=== PATIENT | female | born 1960 | race Caucasian/White ===

== ENCOUNTER → 2018-06-29 09:58 | Outpatient (CLI) | payer OTHER, SELFPAY ==
[2018-06-29 10:31] LABS: Color, Urine Yellow (Yellow); Glucose, Dipstick Normal (Normal); Ketone-Dipstick 15 mg/dl (Negative); Leukocyte Esterase-Dipstick 25 /ul (Negative); Nitrite-Dipstick Negative (Negative); Occult Blood-Urine 50 /ul (Negative); Protein-Dipstick 30 mg/dl (Negative); Urine Bilirubin Dipstick 1 mg/dL (Negative); Urine Clarity Sl. Cloudy (Clear); Urine Urobilinogen 4 mg/dl (Normal)
[2018-06-29 10:38] LABS: Absolute Lymphocyte Count 1.82 X10^3/ul (0.83-4.51); Absolute Neutrophil Count 7.1 X10^3/uL (2.0-7.7); Basophil# 0.02 X10^3/uL; Basophil% 0.2 % (0-1); Eosinophil# 0.14 X10^3/uL; Eosinophils% 1.5 % (0-5); Hematocrit 45.1 % (37-47); Hemoglobin 14.3 g/dl (12.0-15.0); Lymphocyte # 1.82 X10^3/ul (4.0); Lymphocyte % 19.4 % (19-41); Mean Corp Hgb Conc 31.7 g/gl (32-36); Mean Corpuscular Hgb 30.6 pg (27.0-32.0); Mean Corpuscular Volume 96.4 fL (81-99); Mean Platelet Vol. 10.9 fl (6.2-12.0); Monocyte# 0.34 X10^3/uL; Monocyte% 3.6 % (0-10); Neutrophil # 7.06 X10^3/uL (2.7-7.7); Neutrophil % 75.2 % (47-70); POSITIVE COUNT NO; POSITIVE DIFFERENTIAL NO; POSITIVE MORPHOLOGY NO; Platelet Count 281 K/mm3 (150-450); RBC Distribution Width CV 14.5 % (11.6-14.6); RBC Distribution Width SD 51.1 fl (35.1-43.9); Red Blood Count 4.68 M/mm3 (4.2-5.4); White Blood Count 9.4 K/mm3 (4.4-11.0)
[2018-06-29 11:08] LABS: ALB/GLOB Ratio 0.9 RATIO (0.9-2.4); AST(SGOT) 19 U/L (15-37); Alanine Aminotransfer ALT/SGPT 30 U/L (13-56); Albumin, Serum 3.7 g/dL (3.2-5.0); Alkaline Phosphatase 93 U/L (45-117); Anion Gap 8 (5-15); BUN 22 mg/dL (7-18); BUN/Creat Ratio 24.7 RATIO (10-20); Calcium,Total 8.8 mg/dL (8.5-10.1); Chloride 108 mmol/L (98-107); Cholesterol 182 mg/dL (200); Creatinine, Serum 0.89 mg/dL (0.55-1.02); EST Glomerular Filtration Rate 69 mL/min (>60); Est Glom Filt Rate - Afr Amer 83 mL/min (>60); Globulin 3.9 g/dL (2.2-4.2); Glucose 98 mg/dL (74-106); High Density Lipoprotein 52 mg/dL; Potassium 4.2 mmol/L (3.5-5.1); Protein, Total 7.6 g/dL (6.4-8.2); Sodium Level 140 mmol/L (136-145); Triglycerides 107 mg/dL; Very Low Density Lipoprotein 21 mg/dL (5-40)
== END ==
PROVIDERS: Family Provider Family Medicine; PCP Family Medicine; Referring Provider Family Medicine; Visit Provider Family Medicine
DX: Z00.00 Encounter for general adult medical examination without abnormal findings (principal); Z12.31 Encounter for screening mammogram for malignant neoplasm of breast; I10 Essential (primary) hypertension
CPT/HCPCS: 36415; 80053; 80061; 81002; 85025

== ENCOUNTER → 2018-10-01 09:42 | Outpatient (CLI) | payer OTHER, SELFPAY ==
--- NOTE | 2018-10-02 | COLBX_PTH ---
PATIENT: ANGELA MUÑOZ LOC: [facility] U#:[id number] AGE/SX: 65/F ROOM: RE10/01/[address]: Dr. Myles Huff MD : 1960 BED: DIS: SPEC #: [id number] RECD: 10/02/18 13:03 STATUS: SEAN PASQUALE #: [id number] REY: 10/02/18 00:[address]: Myles Huff DEPT: SURGICAL PATHOLOGY RECD BY: Zelalem Jeff ENTERED: 10/02/18 13:03 SP TYPE: COLON BX OTHR DR: Dr. Jabier Gurrola MD [facility] Tissues: Right colon Procedures: Surgery Specimen Level IV HEADER OPERATION: Colonoscopy with biopsies PRE-OP DIAGNOSIS: Screening TISSUE SUBMITTED: Right colon polyp, rule out lipoma/GIST MICROSCOPIC DIAGNOSIS Right colon polyp, biopsy: Fragments of colonic mucosa with focal hyperplastic change. Mild melanosis coli. AM:alexander 10/05/18 MICROSCOPIC DESCRIPTION Slides are reviewed. GROSS DESCRIPTION Received in fixative is one container labeled with the patient's name and designated right colon. The specimen consists of multiple irregular fragments of light ritchie soft tissue that in aggregate measure 1 x 0.7 x 0.1 cm. The specimen is totally submitted in one cassette. / AM:rg 10/02/18 TC:5 CPT: 02121
== END ==
PROVIDERS: Family Provider Family Medicine; PCP Family Medicine; Visit Provider Internal Medicine Gastroenterology
DX: Z12.11 Encounter for screening for malignant neoplasm of colon (principal)
CPT/HCPCS: 88305

== ENCOUNTER 2018-11-19 07:48 | Outpatient (RCR) | payer OTHER, SELFPAY ==
[2018-11-19 08:16] VITALS: BP 165/98; PULSE 80; RESP 18; TEMP 36.8; BMI 39.1
--- NOTE | 2018-11-19 09:30 | PCM.WC.HP ---
(1) Skin ulcer of abdominal wall with fat layer exposed Status: Chronic Code(s): L98.492 - Non-pressure chronic ulcer of skin of other sites with fat layer exposed (2) Skin ulcer of groin Status: Chronic Qualifiers: Non-pressure ulcer stage: limited to breakdown of skin Qualified Code(s): L98.491 - Non-pressure chronic ulcer of skin of other sites limited to breakdown of skin Code(s): L98.499 - Non-pressure chronic ulcer of skin of other sites with unspecified severity Comment: Recurrent. (3) Hidradenitis suppurativa Status: Chronic Code(s): L73.2 - Hidradenitis suppurativa History of Present Illness Date of Service: 11/19/18 Chief Complaint: Chronic non healing abdominal ulcer. History of Wound: Ms. Cook is a 58yo with PMH as stated above who presented to the wound center due to non helaing abdominal ulcers and recurrent groin ulceration / drainage due to hydradenitis suppurativa. Regarding her abdominal wound, it is said to have been present since 2017. she denies any known precipitating factor and states that she just noted bloody drainage followed by the opening. She has been on bactrim as well as some wound care management without any significant improvement. Groin ulcer is chronic ( Years ) and typically resolves with neosporin and guaze. occassionally opens up and drains purulent substances. Surgery has been recommended however, she is not open to this. She feels well otherwise and denies chills,fever, nausea or vomitting. Past Medical History Past Medical History: Chronic Problems Skin ulcer of abdominal wall with fat layer exposed (Chronic) Skin ulcer of groin (Chronic) Recurrent. Hidradenitis suppurativa (Chronic) Allergies/Adverse Reactions: Allergies Penicillins [PCN] Allergy (Verified 01/27/16 22:45) Unknown Home Medications: Ambulatory Orders Medication Instructions Recorded Losartan Potassium [Cozaar] 100 mg PO DAILY 01/27/16 Meloxicam [Mobic] 15 mg PO DAILY 01/27/16 Oxycodone HCl/Acetaminophen 1 each PO Q6H PRN 01/27/16 [Oxycodon-Acetaminophen 7.5-325] Smz/Tmp Ds [Bactrim Ds] 800 mg PO DAILY 01/27/16 buPROPion tablets [Wellbutrin] 100 mg PO DAILY 01/27/16 Fluoxetine 40 mg PO DAILY 11/19/18 Smoking Status: Current every day smoker Review of Systems Constitutional: Denies: Anorexia, Chills, Fever Eyes: Denies: Blurred vision, Pain HEENT: Denies: Difficulty Swallowing Cardiovascular: Denies: Chest Pain, Chest Tightness Respiratory: Denies: Cough, Hemoptysis Gastrointestinal: Denies: Abdominal Pain, Hematemesis, Vomiting Genitourinary: Denies: Hematuria Skin: Reports: Jaundice - Physical Exam Vital Signs Temp Pulse Resp BP 98.2 F 80 18 165/98 H 11/19/18 08:16 11/19/18 08:16 11/19/18 08:16 11/19/18 08:16 General: Alert, Oriented x3, Cooperative, No apparent distress HEENT: Atraumatic, Normocephalic Oral: Moist Mucosa Neck: Supple Lungs: Clear to auscultation, Normal air movement Cardiovascular: Regular rate, Regular Rhythm, Normal S1, Normal S2 Abdomen: Soft, Non Tender, Obese Extremities: No cyanosis, No edema Skin: Ulcer/ Wound Wound Measurements and Assessment WC - Nurse 1 - General Ulcer Measurement Start: 11/19/18 08:07 Freq: Status: Active Protocol: Activity Type Activity Date Activity User E-Sign Co-Sign Detail Recorded Client Recorded Date Recorded By Document 11/19/18 08:16 AN [id number] 11/19/18 08:40 AN 11/19/18 08:16 Wound Center Nurse 1 [Ulcer Assessment] #2 Rt Abdomen -Current Size (cm) - Length 1.1 -Current Size (cm) - Width 1.0 -Current Size (cm) - Depth 0.1 -Total Square Cm 1.10 -Date of Last Picture (Recall this 11/19/18 field) -Photo Taken Yes -Epithelialization None Present -Tunneling No -Undermining/Tunneling No -Circular Undermining No -Classification - Thickness Full Thickness without Exposed Support Structure -Exudate Amt Medium -Exudate Type Serosanguineous -Wound Margin Distinct, Outline Attached -Granulation Amt Large (67-100%) -Granulation Quality Red -Slough/Fibrin Yes -Necrosis Amt Small (1-33%) -Necrotic Tissue Type Adherent Slough -Structure Exposed None/Limited to Skin Breakdown -Texture (Luz Elena-wound Skin Appearance) Assessed Localized Edema -Moisture (Luz Elena-wound Skin Appearance Assessed ) -Color (Luz Elena-wound Skin Appearance) Assessed Erythema -Temperature (Luz Elena-wound Skin No Abnormality Appearance) (Pt Warm) -Tenderness on Palpation (Luz Elena-wound Yes Skin Appearance) -Ulcer Cleansing Rinsed/ Irrigated with Saline -Foul Odor after Cleansing No -Anesthetic Used 4% Lidocaine Solution 5% Lidocaine Gel #1 lower abdomen midline -Current Size (cm) - Length 0.3 -Current Size (cm) - Width 0.3 -Current Size (cm) - Depth 0.1 -Total Square Cm 0.09 -Date of Last Picture (Recall this 11/19/18 field) -Photo Taken Yes -Epithelialization None Present -Tunneling No -Undermining/Tunneling No -Circular Undermining No -Classification - Thickness Full Thickness without Exposed Support Structure -Exudate Amt Medium -Exudate Type Serosanguineous -Wound Margin Distinct, Outline Attached -Granulation Amt Large (67-100%) -Granulation Quality Red -Slough/Fibrin Yes -Necrosis Amt Small (1-33%) -Necrotic Tissue Type Adherent Slough -Structure Exposed None/Limited to Skin Breakdown -Texture (Luz Elena-wound Skin Appearance) Assessed Localized Edema -Moisture (Luz Elena-wound Skin Appearance Assessed ) -Color (Luz Elena-wound Skin Appearance) Assessed Erythema -Temperature (Luz Elena-wound Skin No Abnormality Appearance) (Pt Warm) -Tenderness on Palpation (Luz Elena-wound Yes Skin Appearance) -Ulcer Cleansing Rinsed/ Irrigated with Saline -Foul Odor after Cleansing No -Anesthetic Used 4% Lidocaine Solution 5% Lidocaine Gel WC - Nurse 2 - General Ulcer CM Notes Start: 11/19/18 08:07 Freq: Status: Active Protocol: Activity Type Activity Date Activity User E-Sign Co-Sign Detail Recorded Client Recorded Date Recorded By Document 11/19/18 09:03 MW [id number] 11/19/18 09:06 MW 11/19/18 09:03 Wound Center Nurse 2 [Procedure/Treatment] #2 Rt Abdomen -Time 09:03 -Correct Patient Yes -Correct Side, Site, Position Yes -Correct Procedure Yes -Procedure Performed Yes -Type of Procedure Debridement -Clinical Debridement Subcutaneous -Post Debridement Size (cm) - Length 1.2 -Post Debridement Size (cm) - Width 1.2 -Post Debridement Size (cm) - Depth 0.1 -Total Square Cm 1.44 -Wound/Ulcer Outcome Not Healed -Ulcer Cleansing Rinsed/ Irrigated with Saline -Foul Odor after Cleansing No -Bioengineered Tissue No -Bleeding Controlled with Pressure -Offloading No -Treatment Response Procedure Tolerated Well #1 lower abdomen midline -Time 09:05 -Correct Patient Yes -Correct Side, Site, Position Yes -Correct Procedure Yes -Procedure Performed No -Post Debridement Size (cm) - Length 0.3 -Post Debridement Size (cm) - Width 0.3 -Post Debridement Size (cm) - Depth 0.1 -Total Square Cm 0.09 -Wound/Ulcer Outcome Not Healed -Ulcer Cleansing Rinsed/ Irrigated with Saline -Foul Odor after Cleansing No -Bioengineered Tissue No -Bleeding Controlled with NA -Offloading No -Treatment Response Procedure Tolerated Well [See Physician Procedure note for Specifics] Pain Scale: 0-10 Numeric [Pain] -Is Patient Pain Free? Yes Musculoskeletal: No Muscle Wasting Neurological: Cranial nerves II-XII grossly intact Psych/Mental Status: Normal Affect Debridement Note Post-Debridement Measurements/Treatment WC - Nurse 2 - General Ulcer CM Notes Start: 11/19/18 08:07 Freq: Status: Active Protocol: Activity Type Activity Date Activity User E-Sign Co-Sign Detail Recorded Client Recorded Date Recorded By Document 11/19/18 09:03 MW [id number] 11/19/18 09:06 MW 11/19/18 09:03 Wound Center Nurse 2 #2 Rt Abdomen -Time 09:03 -Correct Patient Yes -Correct Side, Site, Position Yes -Correct Procedure Yes -Procedure Performed Yes -Type of Procedure Debridement -Clinical Debridement Subcutaneous -Post Debridement Size (cm) - Length 1.2 -Post Debridement Size (cm) - Width 1.2 -Post Debridement Size (cm) - Depth 0.1 -Total Square Cm 1.44 -Wound/Ulcer Outcome Not Healed -Ulcer Cleansing Rinsed/ Irrigated with Saline -Foul Odor after Cleansing No -Bioengineered Tissue No -Bleeding Controlled with Pressure -Offloading No -Treatment Response Procedure Tolerated Well #1 lower abdomen midline -Time 09:05 -Correct Patient Yes -Correct Side, Site, Position Yes -Correct Procedure Yes -Procedure Performed No -Post Debridement Size (cm) - Length 0.3 -Post Debridement Size (cm) - Width 0.3 -Post Debridement Size (cm) - Depth 0.1 -Total Square Cm 0.09 -Wound/Ulcer Outcome Not Healed -Ulcer Cleansing Rinsed/ Irrigated with Saline -Foul Odor after Cleansing No -Bioengineered Tissue No -Bleeding Controlled with NA -Offloading No -Treatment Response Procedure Tolerated Well Pain Scale: 0-10 Numeric Is Patient Pain Free? Yes Wound debrided: Abdominal Wound Grade/Stage: Stage II Type of Debridement: Excisional debridement Anesthesia Used: 4% Lidocaine Solution Depth: Down to and including healthy tissue, in the subcutaneous layer Percentage of wound debrided: 100 Instrument Used: 3mm curette Tissue Removed: Slough and devitalized tissue Severity: Fat Layer Exposed Amount of bleeding with debridement: Mild Bleeding Controlled with: Pressure Patient tolerated procedure well Assessment/Plan Assessment: Chronic, non healing abdominal wound. History of Hydradenitis Suppurativa. Plan: Ms. Cook is here due to management of her chronic non healing ulcer ongoing since july. Had been managed previously by her PCP without any significant improvement. Groin ulcer currently not open. This is secondary to hydradenitis and typically reopens and drains frequently. Debridement done as documented above, procedure was well tolerated. Amara daily with adaptic overtop. Increased protein intake recommended. Follow up in 1 week. All her questions were answered and she was advised to call with any further questions or concerns.
== END 2018-11-19 23:59 ==
LOC: WC 07:48
PROVIDERS: Family Provider Family Medicine; PCP Family Medicine; Visit Provider Internal Medicine
DX: L73.2 Hidradenitis suppurativa (principal); L98.492 Non-pressure chronic ulcer of skin of other sites with fat layer exposed; F17.200 Nicotine dependence, unspecified, uncomplicated
CPT/HCPCS: 11042; 99213; G0463

== ENCOUNTER 2018-12-17 08:00 | Outpatient (RCR) | payer OTHER, SELFPAY ==
[2018-11-20 01:52] VITALS: BP 165/98; PULSE 80; RESP 18; TEMP 36.8
[2018-11-26 09:12] VITALS: BP 143/99; PULSE 77; RESP 18; TEMP 36.6; BMI 39.1
--- NOTE | 2018-11-26 13:26 | PCM.WC.PN ---
(1) Skin ulcer of abdominal wall with fat layer exposed Status: Chronic Current Visit: Yes Code(s): L98.492 - Non-pressure chronic ulcer of skin of other sites with fat layer exposed (2) Hidradenitis suppurativa Status: Chronic Current Visit: No Code(s): L73.2 - Hidradenitis suppurativa Type of Wound Chief Complaint: Chronic non healing abdominal ulcer. History of Wound: Ms. Cook is a 58yo with PMH as stated above who presented to the wound center due to non helaing abdominal ulcers and recurrent groin ulceration / drainage due to hydradenitis suppurativa. Regarding her abdominal wound, it is said to have been present since 2017. she denies any known precipitating factor and states that she just noted bloody drainage followed by the opening. She has been on bactrim as well as some wound care management without any significant improvement. Groin ulcer is chronic ( Years ) and typically resolves with neosporin and guaze. occassionally opens up and drains purulent substances. Surgery has been recommended however, she is not open to this. She feels well otherwise and denies chills,fever, nausea or vomitting. Progress of Wound: Appears to have improved however patient has significant tenderness. - Physical Exam Vital Signs Temp Pulse Resp BP 97.8 F 77 18 143/99 H 11/26/18 09:12 11/26/18 09:12 11/26/18 09:12 11/26/18 09:12 General: Alert, Oriented x3, Cooperative, No apparent distress HEENT: Atraumatic, Normocephalic Oral: Moist Mucosa Neck: Supple Lungs: Normal air movement Abdomen: Soft, Tender Extremities: No cyanosis Skin: Ulcer/ Wound Wound Measurements and Assessment WC - Nurse 1 - General Ulcer Measurement Start: 11/26/18 09:12 Freq: Status: Active Protocol: Activity Type Activity Date Activity User E-Sign Co-Sign Detail Recorded Client Recorded Date Recorded By Document 11/26/18 09:12 AN [id number] 11/26/18 09:26 AN 11/26/18 09:12 Wound Center Nurse 1 [Ulcer Assessment] #2 Rt Abdomen -Current Size (cm) - Length 0.7 -Current Size (cm) - Width 0.7 -Current Size (cm) - Depth 0.1 -Total Square Cm 0.49 -Undermining/Tunneling Yes -Undermining/Tunneling Starts (O' 12 clock) -Undermining/Tunneling Ends (O'clock) 1 -Maximum Distance (cm) 0.3 -Classification - Thickness Full Thickness without Exposed Support Structure -Exudate Amt Medium -Exudate Type Serosanguineous -Wound Margin Distinct, Outline Attached -Granulation Amt Large (67-100%) -Granulation Quality Red -Slough/Fibrin Yes -Necrosis Amt Small (1-33%) -Necrotic Tissue Type Adherent Slough -Structure Exposed None/Limited to Skin Breakdown -Texture (Mich-wound Skin Appearance) Assessed -Moisture (Mich-wound Skin Appearance Assessed ) -Color (Mich-wound Skin Appearance) Assessed Erythema -Temperature (Mich-wound Skin No Abnormality Appearance) (Pt Warm) -Tenderness on Palpation (Mich-wound Yes Skin Appearance) -Foul Odor after Cleansing No -Anesthetic Used 5% Lidocaine Gel #1 lower abdomen midline -Current Size (cm) - Length 0.3 -Current Size (cm) - Width 0.2 -Current Size (cm) - Depth 0.1 -Total Square Cm 0.06 -Classification - Thickness Full Thickness without Exposed Support Structure -Exudate Amt Small -Exudate Type Serous -Necrosis Amt None Present (0 %) -Anesthetic Used 5% Lidocaine Gel WC - Nurse 2 - General Ulcer CM Notes Start: 11/26/18 09:12 Freq: Status: Active Protocol: Activity Type Activity Date Activity User E-Sign Co-Sign Detail Recorded Client Recorded Date Recorded By Document 11/26/18 09:32 MW [id number] 11/26/18 09:39 MW 11/26/18 09:32 Wound Center Nurse 2 [Procedure/Treatment] #2 Rt Abdomen -Time 09:33 -Correct Patient Yes -Correct Side, Site, Position Yes -Correct Procedure Yes -Procedure Performed Yes -Type of Procedure Debridement -Clinical Debridement Subcutaneous -Post Debridement Size (cm) - Length 1.0 -Post Debridement Size (cm) - Width 0.8 -Post Debridement Size (cm) - Depth 0.1 -Total Square Cm 0.80 -Wound/Ulcer Outcome Not Healed -Ulcer Cleansing Rinsed/ Irrigated with Saline -Foul Odor after Cleansing No -Bioengineered Tissue No -Bleeding Controlled with Pressure -Offloading No -Treatment Response Procedure Tolerated Well #1 lower abdomen midline -Time 09:33 -Correct Patient Yes -Correct Side, Site, Position Yes -Correct Procedure Yes -Procedure Performed No -Post Debridement Size (cm) - Length 0.3 -Post Debridement Size (cm) - Width 0.2 -Post Debridement Size (cm) - Depth 0.1 -Total Square Cm 0.06 -Wound/Ulcer Outcome Healed- Epithelialized -Ulcer Cleansing Rinsed/ Irrigated with Saline -Foul Odor after Cleansing No -Bioengineered Tissue No -Bleeding Controlled with Pressure -Offloading No -Treatment Response Procedure Tolerated Well [See Physician Procedure note for Specifics] Pain Scale: 0-10 Numeric [Pain] -Is Patient Pain Free? Yes Musculoskeletal: No Muscle Wasting Neurological: Cranial nerves II-XII grossly intact Psych/Mental Status: Normal Affect Debridement Note Post-Debridement Measurements/Treatment WC - Nurse 2 - General Ulcer CM Notes Start: 11/26/18 09:12 Freq: Status: Active Protocol: Activity Type Activity Date Activity User E-Sign Co-Sign Detail Recorded Client Recorded Date Recorded By Document 11/26/18 09:32 MW [id number] 11/26/18 09:39 MW 11/26/18 09:32 Wound Center Nurse 2 #2 Rt Abdomen -Time 09:33 -Correct Patient Yes -Correct Side, Site, Position Yes -Correct Procedure Yes -Procedure Performed Yes -Type of Procedure Debridement -Clinical Debridement Subcutaneous -Post Debridement Size (cm) - Length 1.0 -Post Debridement Size (cm) - Width 0.8 -Post Debridement Size (cm) - Depth 0.1 -Total Square Cm 0.80 -Wound/Ulcer Outcome Not Healed -Ulcer Cleansing Rinsed/ Irrigated with Saline -Foul Odor after Cleansing No -Bioengineered Tissue No -Bleeding Controlled with Pressure -Offloading No -Treatment Response Procedure Tolerated Well #1 lower abdomen midline -Time 09:33 -Correct Patient Yes -Correct Side, Site, Position Yes -Correct Procedure Yes -Procedure Performed No -Post Debridement Size (cm) - Length 0.3 -Post Debridement Size (cm) - Width 0.2 -Post Debridement Size (cm) - Depth 0.1 -Total Square Cm 0.06 -Wound/Ulcer Outcome Healed- Epithelialized -Ulcer Cleansing Rinsed/ Irrigated with Saline -Foul Odor after Cleansing No -Bioengineered Tissue No -Bleeding Controlled with Pressure -Offloading No -Treatment Response Procedure Tolerated Well Pain Scale: 0-10 Numeric Is Patient Pain Free? Yes Wound debrided: Abdominal Wound Grade/Stage: Stage II Type of Debridement: Excisional debridement Anesthesia Used: 4% Lidocaine Solution Depth: Down to and including healthy tissue, in the subcutaneous layer Percentage of wound debrided: 100 Instrument Used: 3mm curette Tissue Removed: Slough and devitalized tissue Severity: Fat Layer Exposed Amount of bleeding with debridement: Mild Bleeding Controlled with: Pressure Patient tolerated procedure well Assessment/Plan Active Problems Skin ulcer of abdominal wall with fat layer exposed (Chronic) Assessment: Same as above. Plan: Ulcer appears better however, patient with significant tenderness in the mich-area. No drainage but some erythema noted. Cultures taken. Debridement done as documented above, procedure was well-tolerated. Continue Amara with Adaptic over top. Change daily. Chronic groin wound still closed. Continue Adaptic and gauze. Increased protein intake recommended. Follow-up in 1 week. All questions were answered and she was advised to call with any further questions or concerns. This note was generated with [employer]ing[employer]ation software. It may contain incorrect words, spelling, and punctuation that were not noted in checking the note before signing.
[2018-12-03 08:18] VITALS: BP 149/96; PULSE 72; RESP 18; TEMP 36.6; BMI 39.1
--- NOTE | 2018-12-03 09:03 | PN.PCM_ITS ---
(1) Skin ulcer of abdominal wall with fat layer exposed Status: Chronic Current Visit: Yes Code(s): L98.492 - Non-pressure chronic ulcer of skin of other sites with fat layer exposed (2) Hidradenitis suppurativa Status: Chronic Current Visit: No Code(s): L73.2 - Hidradenitis suppurativa Type of Wound Chief Complaint: Chronic non healing abdominal ulcer. History of Wound: Ms. Cook is a 58yo with PMH as stated above who presented to the wound center due to non helaing abdominal ulcers and recurrent groin ulceration / drainage due to hydradenitis suppurativa. Regarding her abdominal wound, it is said to have been present since 2017. she denies any known precipitating factor and states that she just noted bloody drainage followed by the opening. She has been on bactrim as well as some wound care management without any significant improvement. Groin ulcer is chronic ( Years ) and typically resolves with neosporin and guaze. occassionally opens up and drains purulent substances. Surgery has been recommended however, she is not open to this. She feels well otherwise and denies chills,fever, nausea or vomitting. Progress of Wound: Continues to show good improvement. No significant discharge. - Physical Exam Vital Signs Temp Pulse Resp BP 98 F 72 18 149/96 H 12/03/18 08:18 12/03/18 08:18 12/03/18 08:18 12/03/18 08:18 General: Alert, Oriented x3, Cooperative, No apparent distress HEENT: Atraumatic, Normocephalic Oral: Moist Mucosa Neck: Supple Lungs: Normal air movement Abdomen: Soft, Obese Extremities: No cyanosis Skin: Ulcer/ Wound Wound Measurements and Assessment WC - Nurse 1 - General Ulcer Measurement Start: 11/26/18 09:12 Freq: Status: Active Protocol: Activity Type Activity Date Activity User E-Sign Co-Sign Detail Recorded Client Recorded Date Recorded By Document 12/03/18 08:18 AN [id number] 12/03/18 08:32 AN 12/03/18 08:18 Wound Center Nurse 1 [Ulcer Assessment] #2 Rt Abdomen -Current Size (cm) - Length 0.8 -Current Size (cm) - Width 0.4 -Current Size (cm) - Depth 0.2 -Total Square Cm 0.32 -Classification - Thickness Full Thickness with Exposed Support Structure -Exudate Amt Medium -Exudate Type Serosanguineous -Wound Margin Distinct, Outline Attached -Granulation Amt Large (67-100%) -Granulation Quality Red -Slough/Fibrin Yes -Necrosis Amt Small (1-33%) -Necrotic Tissue Type Adherent Slough -Structure Exposed Fat Layer Exposed -Texture (Luz Elena-wound Skin Appearance) Assessed Localized Edema -Moisture (Luz Elena-wound Skin Appearance Assessed ) -Color (Luz Elena-wound Skin Appearance) Assessed Erythema -Temperature (Luz Elena-wound Skin No Abnormality Appearance) (Pt Warm) -Tenderness on Palpation (Luz Elena-wound Yes Skin Appearance) -Ulcer Cleansing Rinsed/ Irrigated with Saline -Foul Odor after Cleansing No -Anesthetic Used 4% Lidocaine Solution #1 lower abdomen midline -Current Size (cm) - Length 0.1 -Current Size (cm) - Width 0.1 -Current Size (cm) - Depth 0.1 -Total Square Cm 0.01 -Epithelialization None Present -Circular Undermining No -Change in Wound Grade/Stage No Query Text:If change please identify the Stage/Grade in the comment (ie. S2 G3) -Exudate Amt None Present -Granulation Amt None Present (0 %) -Necrosis Amt None Present (0 %) -Texture (Luz Elena-wound Skin Appearance) No Abnormality Assessed -Moisture (Luz Elena-wound Skin Appearance Assessed ) -Color (Luz Elena-wound Skin Appearance) Assessed -Temperature (Luz Elena-wound Skin No Abnormality Appearance) (Pt Warm) -Tenderness on Palpation (Luz Elena-wound No Skin Appearance) -Ulcer Cleansing Not Cleansed -Foul Odor after Cleansing No WC - Nurse 2 - General Ulcer CM Notes Start: 11/26/18 09:12 Freq: Status: Active Protocol: Activity Type Activity Date Activity User E-Sign Co-Sign Detail Recorded Client Recorded Date Recorded By Document 12/03/18 08:47 MW [id number] 12/03/18 08:52 MW 12/03/18 08:47 Wound Center Nurse 2 [Procedure/Treatment] #2 Rt Abdomen -Time 08:48 -Correct Patient Yes -Correct Side, Site, Position Yes -Correct Procedure Yes -Procedure Performed Yes -Type of Procedure Debridement -Clinical Debridement Subcutaneous -Post Debridement Size (cm) - Length 0.8 -Post Debridement Size (cm) - Width 0.6 -Post Debridement Size (cm) - Depth 0.1 -Total Square Cm 0.48 -Wound/Ulcer Outcome Not Healed -Ulcer Cleansing Rinsed/ Irrigated with Saline -Foul Odor after Cleansing No -Bioengineered Tissue No -Bleeding Controlled with Pressure -Offloading No -Treatment Response Procedure Tolerated Well #1 lower abdomen midline -Time 08:48 -Correct Patient Yes -Correct Side, Site, Position Yes -Correct Procedure Yes -Procedure Performed No -Post Debridement Size (cm) - Length 0 -Post Debridement Size (cm) - Width 0 -Post Debridement Size (cm) - Depth 0 -Total Square Cm 0 -Wound/Ulcer Outcome Healed- Epithelialized -Ulcer Cleansing Not Cleansed -Foul Odor after Cleansing No -Bioengineered Tissue No -Bleeding Controlled with Pressure -Offloading No -Treatment Response Procedure Tolerated Well [See Physician Procedure note for Specifics] Pain Scale: 0-10 Numeric [Pain] -Is Patient Pain Free? Yes Musculoskeletal: No Muscle Wasting Neurological: Cranial nerves II-XII grossly intact Psych/Mental Status: Normal Affect Debridement Note Post-Debridement Measurements/Treatment WC - Nurse 2 - General Ulcer CM Notes Start: 11/26/18 09:12 Freq: Status: Active Protocol: Activity Type Activity Date Activity User E-Sign Co-Sign Detail Recorded Client Recorded Date Recorded By Document 11/26/18 09:32 MW [id number] 11/26/18 09:39 MW Document 12/03/18 08:47 MW [id number] 12/03/18 08:52 MW 11/26/18 12/03/18 09:32 08:47 Wound Center Nurse 2 #2 Rt Abdomen -Time 09:33 08:48 -Correct Patient Yes Yes -Correct Side, Site, Position Yes Yes -Correct Procedure Yes Yes -Procedure Performed Yes Yes -Type of Procedure Debridement Debridement -Clinical Debridement Subcutaneous Subcutaneous -Post Debridement Size (cm) - Length 1.0 0.8 -Post Debridement Size (cm) - Width 0.8 0.6 -Post Debridement Size (cm) - Depth 0.1 0.1 -Total Square Cm 0.80 0.48 -Wound/Ulcer Outcome Not Healed Not Healed -Ulcer Cleansing Rinsed/ Rinsed/ Irrigated with Irrigated with Saline Saline -Foul Odor after Cleansing No No -Bioengineered Tissue No No -Bleeding Controlled with Pressure Pressure -Offloading No No -Treatment Response Procedure Procedure Tolerated Well Tolerated Well #1 lower abdomen midline -Time 09:33 08:48 -Correct Patient Yes Yes -Correct Side, Site, Position Yes Yes -Correct Procedure Yes Yes -Procedure Performed No No -Post Debridement Size (cm) - Length 0.3 0 -Post Debridement Size (cm) - Width 0.2 0 -Post Debridement Size (cm) - Depth 0.1 0 -Total Square Cm 0.06 0 -Wound/Ulcer Outcome Healed- Healed- Epithelialized Epithelialized -Ulcer Cleansing Rinsed/ Not Cleansed Irrigated with Saline -Foul Odor after Cleansing No No -Bioengineered Tissue No No -Bleeding Controlled with Pressure Pressure -Offloading No No -Treatment Response Procedure Procedure Tolerated Well Tolerated Well Pain Scale: 0-10 Numeric Is Patient Pain Free? Yes Yes Wound debrided: Abdominal Wound Grade/Stage: Stage II Type of Debridement: Excisional debridement Anesthesia Used: 4% Lidocaine Solution Depth: Down to and including healthy tissue, in the subcutaneous layer Percentage of wound debrided: 100 Instrument Used: 3mm curette Tissue Removed: Slough and devitalized tissue Severity: Fat Layer Exposed Amount of bleeding with debridement: Mild Bleeding Controlled with: Pressure Patient tolerated procedure well Assessment/Plan Active Problems Skin ulcer of abdominal wall with fat layer exposed (Chronic) Assessment: Same as above. Plan: Debridement done as documented above, procedure was well-tolerated. Cultures reviewed. Minimal growth. Pain however has improved some and wound continues to show good improvement. Will hold off systemic antibiotics for now. Continue Amara with Adaptic over top. Change daily. Chronic groin wound still closed. Continue Adaptic and gauze. Increased protein intake re commended. Follow-up in 1 week. All questions were answered and she was advised to call with any further questions or concerns. This note was generated with [employer] software. It may contain incorrect words, spelling, and punctuation that were not noted in checking the note before signing.
[2018-12-17 08:11] VITALS: BP 177/95; PULSE 82; RESP 18; TEMP 36.6; BMI 39.1
--- NOTE | 2018-12-17 08:29 | PCM.WC.PN ---
(1) Skin ulcer of abdominal wall with fat layer exposed Status: Chronic Current Visit: Yes Code(s): L98.492 - Non-pressure chronic ulcer of skin of other sites with fat layer exposed (2) Hidradenitis suppurativa Status: Chronic Current Visit: No Code(s): L73.2 - Hidradenitis suppurativa Type of Wound Chief Complaint: Chronic non healing abdominal ulcer. History of Wound: Ms. Cook is a 58yo with PMH as stated above who presented to the wound center due to non helaing abdominal ulcers and recurrent groin ulceration / drainage due to hydradenitis suppurativa. Regarding her abdominal wound, it is said to have been present since 2017. she denies any known precipitating factor and states that she just noted bloody drainage followed by the opening. She has been on bactrim as well as some wound care management without any significant improvement. Groin ulcer is chronic ( Years ) and typically resolves with neosporin and guaze. occassionally opens up and drains purulent substances. Surgery has been recommended however, she is not open to this. She feels well otherwise and denies chills,fever, nausea or vomitting. Progress of Wound: Stable. No concerns at this time. - Physical Exam Vital Signs Temp Pulse Resp BP 97.9 F 82 18 177/95 H 12/17/18 08:11 12/17/18 08:11 12/17/18 08:11 12/17/18 08:11 General: Alert, Oriented x3, Cooperative, No apparent distress HEENT: Atraumatic, Normocephalic Oral: Moist Mucosa Neck: Supple Lungs: Normal air movement Abdomen: Non Tender, Obese Extremities: No cyanosis Skin: Ulcer/ Wound Wound Measurements and Assessment WC - Nurse 1 - General Ulcer Measurement Start: 11/26/18 09:12 Freq: Status: Active Protocol: Activity Type Activity Date Activity User E-Sign Co-Sign Detail Recorded Client Recorded Date Recorded By Document 12/17/18 08:11 AN [id number] 12/17/18 08:20 AN 12/17/18 08:11 Wound Center Nurse 1 [Ulcer Assessment] #2 Rt Abdomen -Current Size (cm) - Length 0.8 -Current Size (cm) - Width 0.5 -Current Size (cm) - Depth 0.1 -Total Square Cm 0.40 -Photo Taken No -Tunneling No -Classification - Thickness Full Thickness without Exposed Support Structure -Exudate Amt Small -Exudate Type Serous -Wound Margin Distinct, Outline Attached -Granulation Amt Large (67-100%) -Granulation Quality Red -Slough/Fibrin Yes -Necrosis Amt Small (1-33%) -Necrotic Tissue Type Adherent Slough -Structure Exposed None/Limited to Skin Breakdown -Texture (Luz Elena-wound Skin Appearance) Localized Edema -Moisture (Luz Elena-wound Skin Appearance Assessed ) -Color (Luz Elena-wound Skin Appearance) Assessed Erythema -Temperature (Luz Elena-wound Skin No Abnormality Appearance) (Pt Warm) -Tenderness on Palpation (Luz Elena-wound Yes Skin Appearance) -Ulcer Cleansing Rinsed/ Irrigated with Saline -Foul Odor after Cleansing No -Anesthetic Used 4% Lidocaine Solution 5% Lidocaine Gel WC - Nurse 2 - General Ulcer CM Notes Start: 11/26/18 09:12 Freq: Status: Active Protocol: Activity Type Activity Date Activity User E-Sign Co-Sign Detail Recorded Client Recorded Date Recorded By Document 12/17/18 08:26 MW [id number] 12/17/18 08:27 MW 12/17/18 08:26 Wound Center Nurse 2 [Procedure/Treatment] -Time 08:26 -Correct Patient Yes -Correct Side, Site, Position Yes -Correct Procedure Yes -Procedure Performed Yes -Type of Procedure Debridement -Clinical Debridement Subcutaneous -Post Debridement Size (cm) - Length 0.9 -Post Debridement Size (cm) - Width 0.4 -Post Debridement Size (cm) - Depth 0.1 -Total Square Cm 0.36 -Wound/Ulcer Outcome Not Healed -Ulcer Cleansing Rinsed/ Irrigated with Saline -Foul Odor after Cleansing No -Bioengineered Tissue No -Bleeding Controlled with Pressure -Offloading No -Treatment Response Procedure Tolerated Well [See Physician Procedure note for Specifics] Pain Scale: 0-10 Numeric [Pain] -Is Patient Pain Free? Yes Musculoskeletal: No Muscle Wasting Neurological: Cranial nerves II-XII grossly intact Psych/Mental Status: Normal Affect Debridement Note Post-Debridement Measurements/Treatment WC - Nurse 2 - General Ulcer CM Notes Start: 11/26/18 09:12 Freq: Status: Active Protocol: Activity Type Activity Date Activity User E-Sign Co-Sign Detail Recorded Client Recorded Date Recorded By Document 11/26/18 09:32 MW [id number] 11/26/18 09:39 MW Document 12/03/18 08:47 MW [id number] 12/03/18 08:52 MW Document 12/17/18 08:26 MW [id number] 12/17/18 08:27 MW 11/26/18 12/03/18 12/17/18 09:32 08:47 08:26 Wound Center Nurse 2 #2 Rt Abdomen -Time 09:33 08:48 08:26 -Correct Patient Yes Yes Yes -Correct Side, Site, Position Yes Yes Yes -Correct Procedure Yes Yes Yes -Procedure Performed Yes Yes Yes -Type of Procedure Debridement Debridement Debridement -Clinical Debridement Subcutaneous Subcutaneous Subcutaneous -Post Debridement Size (cm) - Length 1.0 0.8 0.9 -Post Debridement Size (cm) - Width 0.8 0.6 0.4 -Post Debridement Size (cm) - Depth 0.1 0.1 0.1 -Total Square Cm 0.80 0.48 0.36 -Wound/Ulcer Outcome Not Healed Not Healed Not Healed -Ulcer Cleansing Rinsed/ Rinsed/ Rinsed/ Irrigated with Irrigated with Irrigated with Saline Saline Saline -Foul Odor after Cleansing No No No -Bioengineered Tissue No No No -Bleeding Controlled with Pressure Pressure Pressure -Offloading No No No -Treatment Response Procedure Procedure Procedure Tolerated Well Tolerated Well Tolerated Well #1 lower abdomen midline -Time 09:33 08:48 -Correct Patient Yes Yes -Correct Side, Site, Position Yes Yes -Correct Procedure Yes Yes -Procedure Performed No No -Post Debridement Size (cm) - Length 0.3 0 -Post Debridement Size (cm) - Width 0.2 0 -Post Debridement Size (cm) - Depth 0.1 0 -Total Square Cm 0.06 0 -Wound/Ulcer Outcome Healed- Healed- Epithelialized Epithelialized -Ulcer Cleansing Rinsed/ Not Cleansed Irrigated with Saline -Foul Odor after Cleansing No No -Bioengineered Tissue No No -Bleeding Controlled with Pressure Pressure -Offloading No No -Treatment Response Procedure Procedure Tolerated Well Tolerated Well Pain Scale: 0-10 Numeric Is Patient Pain Free? Yes Yes Yes Wound debrided: Abdominal Wound Grade/Stage: Stage II Type of Debridement: Excisional debridement Anesthesia Used: 4% Lidocaine Solution Depth: Down to and including healthy tissue, in the subcutaneous layer Percentage of wound debrided: 100 Instrument Used: 3mm curette Tissue Removed: Slough and devitalized tissue Severity: Fat Layer Exposed Amount of bleeding with debridement: Mild Bleeding Controlled with: Pressure Patient tolerated procedure well Assessment/Plan Active Problems Skin ulcer of abdominal wall with fat layer exposed (Chronic) Assessment: Same as above. Plan: Debridement done as documented above, procedure was well-tolerated. Continue Amara with Adaptic over top. Change daily. Chronic groin wound still closed. Continue Adaptic and gauze. Increased protein intake recommended. Follow-up in 1 week. All questions were answered and she was advised to call with any further questions or concerns. This note was generated with [employer] software. It may contain incorrect words, spelling, and punctuation that were not noted in checking the note before signing.
--- NOTE | 2018-12-17 08:33 | PN.PCM_ITS ---
(1) Skin ulcer of abdominal wall with fat layer exposed Status: Chronic Current Visit: Yes Code(s): L98.492 - Non-pressure chronic ulcer of skin of other sites with fat layer exposed (2) Hidradenitis suppurativa Status: Chronic Current Visit: No Code(s): L73.2 - Hidradenitis suppurativa Type of Wound Chief Complaint: Chronic non healing abdominal ulcer. History of Wound: Ms. Cook is a 58yo with PMH as stated above who presented to the wound center due to non helaing abdominal ulcers and recurrent groin ulceration / drainage due to hydradenitis suppurativa. Regarding her abdominal wound, it is said to have been present since 2017. she denies any known precipitating factor and states that she just noted bloody drainage followed by the opening. She has been on bactrim as well as some wound care management without any significant improvement. Groin ulcer is chronic ( Years ) and typically resolves with neosporin and guaze. occassionally opens up and drains purulent substances. Surgery has been recommended however, she is not open to this. She feels well otherwise and denies chills,fever, nausea or vomitting. Progress of Wound: Stable. No concerns at this time. - Physical Exam Vital Signs Temp Pulse Resp BP 97.9 F 82 18 177/95 H 12/17/18 08:11 12/17/18 08:11 12/17/18 08:11 12/17/18 08:11 General: Alert, Oriented x3, Cooperative, No apparent distress HEENT: Atraumatic, Normocephalic Oral: Moist Mucosa Neck: Supple Lungs: Normal air movement Abdomen: Non Tender, Obese Extremities: No cyanosis Skin: Ulcer/ Wound Wound Measurements and Assessment WC - Nurse 1 - General Ulcer Measurement Start: 11/26/18 09:12 Freq: Status: Active Protocol: Activity Type Activity Date Activity User E-Sign Co-Sign Detail Recorded Client Recorded Date Recorded By Document 12/17/18 08:11 AN [id number] 12/17/18 08:20 AN 12/17/18 08:11 Wound Center Nurse 1 [Ulcer Assessment] #2 Rt Abdomen -Current Size (cm) - Length 0.8 -Current Size (cm) - Width 0.5 -Current Size (cm) - Depth 0.1 -Total Square Cm 0.40 -Photo Taken No -Tunneling No -Classification - Thickness Full Thickness without Exposed Support Structure -Exudate Amt Small -Exudate Type Serous -Wound Margin Distinct, Outline Attached -Granulation Amt Large (67-100%) -Granulation Quality Red -Slough/Fibrin Yes -Necrosis Amt Small (1-33%) -Necrotic Tissue Type Adherent Slough -Structure Exposed None/Limited to Skin Breakdown -Texture (Luz Elena-wound Skin Appearance) Localized Edema -Moisture (Luz Elena-wound Skin Appearance Assessed ) -Color (Luz Elena-wound Skin Appearance) Assessed Erythema -Temperature (Luz Elena-wound Skin No Abnormality Appearance) (Pt Warm) -Tenderness on Palpation (Luz Elena-wound Yes Skin Appearance) -Ulcer Cleansing Rinsed/ Irrigated with Saline -Foul Odor after Cleansing No -Anesthetic Used 4% Lidocaine Solution 5% Lidocaine Gel WC - Nurse 2 - General Ulcer CM Notes Start: 11/26/18 09:12 Freq: Status: Active Protocol: Activity Type Activity Date Activity User E-Sign Co-Sign Detail Recorded Client Recorded Date Recorded By Document 12/17/18 08:26 MW [id number] 12/17/18 08:27 MW 12/17/18 08:26 Wound Center Nurse 2 [Procedure/Treatment] -Time 08:26 -Correct Patient Yes -Correct Side, Site, Position Yes -Correct Procedure Yes -Procedure Performed Yes -Type of Procedure Debridement -Clinical Debridement Subcutaneous -Post Debridement Size (cm) - Length 0.9 -Post Debridement Size (cm) - Width 0.4 -Post Debridement Size (cm) - Depth 0.1 -Total Square Cm 0.36 -Wound/Ulcer Outcome Not Healed -Ulcer Cleansing Rinsed/ Irrigated with Saline -Foul Odor after Cleansing No -Bioengineered Tissue No -Bleeding Controlled with Pressure -Offloading No -Treatment Response Procedure Tolerated Well [See Physician Procedure note for Specifics] Pain Scale: 0-10 Numeric [Pain] -Is Patient Pain Free? Yes Musculoskeletal: No Muscle Wasting Neurological: Cranial nerves II-XII grossly intact Psych/Mental Status: Normal Affect Debridement Note Post-Debridement Measurements/Treatment WC - Nurse 2 - General Ulcer CM Notes Start: 11/26/18 09:12 Freq: Status: Active Protocol: Activity Type Activity Date Activity User E-Sign Co-Sign Detail Recorded Client Recorded Date Recorded By Document 11/26/18 09:32 MW [id number] 11/26/18 09:39 MW Document 12/03/18 08:47 MW [id number] 12/03/18 08:52 MW Document 12/17/18 08:26 MW [id number] 12/17/18 08:27 MW 11/26/18 12/03/18 12/17/18 09:32 08:47 08:26 Wound Center Nurse 2 #2 Rt Abdomen -Time 09:33 08:48 08:26 -Correct Patient Yes Yes Yes -Correct Side, Site, Position Yes Yes Yes -Correct Procedure Yes Yes Yes -Procedure Performed Yes Yes Yes -Type of Procedure Debridement Debridement Debridement -Clinical Debridement Subcutaneous Subcutaneous Subcutaneous -Post Debridement Size (cm) - Length 1.0 0.8 0.9 -Post Debridement Size (cm) - Width 0.8 0.6 0.4 -Post Debridement Size (cm) - Depth 0.1 0.1 0.1 -Total Square Cm 0.80 0.48 0.36 -Wound/Ulcer Outcome Not Healed Not Healed Not Healed -Ulcer Cleansing Rinsed/ Rinsed/ Rinsed/ Irrigated with Irrigated with Irrigated with Saline Saline Saline -Foul Odor after Cleansing No No No -Bioengineered Tissue No No No -Bleeding Controlled with Pressure Pressure Pressure -Offloading No No No -Treatment Response Procedure Procedure Procedure Tolerated Well Tolerated Well Tolerated Well #1 lower abdomen midline -Time 09:33 08:48 -Correct Patient Yes Yes -Correct Side, Site, Position Yes Yes -Correct Procedure Yes Yes -Procedure Performed No No -Post Debridement Size (cm) - Length 0.3 0 -Post Debridement Size (cm) - Width 0.2 0 -Post Debridement Size (cm) - Depth 0.1 0 -Total Square Cm 0.06 0 -Wound/Ulcer Outcome Healed- Healed- Epithelialized Epithelialized -Ulcer Cleansing Rinsed/ Not Cleansed Irrigated with Saline -Foul Odor after Cleansing No No -Bioengineered Tissue No No -Bleeding Controlled with Pressure Pressure -Offloading No No -Treatment Response Procedure Procedure Tolerated Well Tolerated Well Pain Scale: 0-10 Numeric Is Patient Pain Free? Yes Yes Yes Wound debrided: Abdominal Wound Grade/Stage: Stage II Type of Debridement: Excisional debridement Anesthesia Used: 4% Lidocaine Solution Depth: Down to and including healthy tissue, in the subcutaneous layer Percentage of wound debrided: 100 Instrument Used: 3mm curette Tissue Removed: Slough and devitalized tissue Severity: Fat Layer Exposed Amount of bleeding with debridement: Mild Bleeding Controlled with: Pressure Patient tolerated procedure well Assessment/Plan Active Problems Skin ulcer of abdominal wall with fat layer exposed (Chronic) Assessment: Same as above. Plan: Debridement done as documented above, procedure was well-tolerated. Continue Amara with Adaptic over top. Change daily. Chronic groin wound still closed. Continue Adaptic and gauze. Increased protein intake recommended. Follow-up in 1 week. All questions were answered and she was advised to call with any further questions or concerns. This note was generated with [employer] software. It may contain incorrect words, spelling, and punctuation that were not noted in checking the note before signing.
== END 2018-12-20 23:59 ==
LOC: WC 08:00
PROVIDERS: Family Provider Family Medicine; PCP Family Medicine; Referring Provider Internal Medicine; Visit Provider Internal Medicine
DX: L73.2 Hidradenitis suppurativa (principal); L98.492 Non-pressure chronic ulcer of skin of other sites with fat layer exposed
CPT/HCPCS: 11042; 87070; 87075; 87077; 87186; 87205

== ENCOUNTER 2018-12-31 08:00 | Outpatient (RCR) | payer OTHER, SELFPAY ==
[2018-12-21 01:25] VITALS: BP 177/95; PULSE 82; RESP 18; TEMP 36.6
[2018-12-24 08:57] VITALS: BP 138/83; PULSE 80; RESP 16; TEMP 35.5; BMI 39.1
--- NOTE | 2018-12-24 12:12 | PN.PCM_ITS ---
(1) Skin ulcer of abdominal wall with fat layer exposed Status: Chronic Current Visit: Yes Code(s): L98.492 - Non-pressure chronic ulcer of skin of other sites with fat layer exposed (2) Hidradenitis suppurativa Status: Chronic Current Visit: Yes Code(s): L73.2 - Hidradenitis suppurativa Type of Wound Chief Complaint: Chronic non healing abdominal ulcer. History of Wound: Ms. Cook is a 58yo with PMH as stated above who presented to the wound center due to non helaing abdominal ulcers and recurrent groin ulceration / drainage due to hydradenitis suppurativa. Regarding her abdominal wound, it is said to have been present since 2017. she denies any known precipitating factor and states that she just noted bloody drainage followed by the opening. She has been on bactrim as well as some wound care management without any significant improvement. Groin ulcer is chronic ( Years ) and typically resolves with neosporin and guaze. occassionally opens up and drains purulent substances. Surgery has been recommended however, she is not open to this. She feels well otherwise and denies chills,fever, nausea or vomitting. Progress of Wound: Stable. No concerns at this time. - Physical Exam Vital Signs Temp Pulse Resp BP 96 F L 80 16 138/83 H 12/24/18 08:57 12/24/18 08:57 12/24/18 08:57 12/24/18 08:57 General: Alert, Oriented x3, Cooperative, No apparent distress HEENT: Atraumatic Oral: Moist Mucosa Neck: Supple Lungs: Normal air movement Abdomen: Soft, Non Tender, Obese Skin: Ulcer/ Wound Wound Measurements and Assessment WC - Nurse 1 - General Ulcer Measurement Start: 12/24/18 08:54 Freq: Status: Active Protocol: Activity Type Activity Date Activity User E-Sign Co-Sign Detail Recorded Client Recorded Date Recorded By Document 12/24/18 08:57 ND [id number] 12/24/18 09:03 ND 12/24/18 08:57 Wound Center Nurse 1 [Ulcer Assessment] #2 Rt Abdomen -Current Size (cm) - Length 1.2 -Current Size (cm) - Width 1.4 -Current Size (cm) - Depth 0.2 -Total Square Cm 1.68 -Photo Taken No -Epithelialization Small 1-33% -Tunneling No -Circular Undermining Yes -Exudate Amt Small -Exudate Type Sanguineous -Wound Margin Flat & Intact -Granulation Amt Large (67-100%) -Granulation Quality Pale [place] -Slough/Fibrin No -Texture (Luz Elena-wound Skin Appearance) Assessed -Moisture (Luz Elena-wound Skin Appearance Assessed ) -Color (Luz Elena-wound Skin Appearance) Assessed -Temperature (Luz Elena-wound Skin No Abnormality Appearance) (Pt Warm) -Tenderness on Palpation (Luz Elena-wound No Skin Appearance) -Ulcer Cleansing Rinsed/ Irrigated with Saline -Foul Odor after Cleansing No -Anesthetic Used 4% Lidocaine Solution [Edema Assessment] -Lower Limb Edema Present NA - Nurse 2 - General Ulcer CM Notes Start: 12/24/18 08:54 Freq: Status: Active Protocol: Activity Type Activity Date Activity User E-Sign Co-Sign Detail Recorded Client Recorded Date Recorded By Document 12/24/18 09:21 MW [id number] 12/24/18 09:25 MW 12/24/18 09:21 Wound Center Nurse 2 [Procedure/Treatment] #2 Rt Abdomen -Time 09:21 -Correct Patient Yes -Correct Side, Site, Position Yes -Correct Procedure Yes -Procedure Performed Yes -Type of Procedure Debridement -Clinical Debridement Subcutaneous -Post Debridement Size (cm) - Length 0.9 -Post Debridement Size (cm) - Width 0.3 -Post Debridement Size (cm) - Depth 0.1 -Total Square Cm 0.27 -Wound/Ulcer Outcome Not Healed -Ulcer Cleansing Rinsed/ Irrigated with Saline -Foul Odor after Cleansing No -Bioengineered Tissue No -Bleeding Controlled with Pressure -Other undermining 12- 5 - 0.4cm -Offloading No -Treatment Response Procedure Tolerated Well [See Physician Procedure note for Specifics] Pain Scale: 0-10 Numeric [Pain] -Is Patient Pain Free? Yes Musculoskeletal: No Muscle Wasting Neurological: Cranial nerves II-XII grossly intact Psych/Mental Status: Normal Affect Debridement Note Post-Debridement Measurements/Treatment - Nurse 2 - General Ulcer CM Notes Start: 12/24/18 08:54 Freq: Status: Active Protocol: Activity Type Activity Date Activity User E-Sign Co-Sign Detail Recorded Client Recorded Date Recorded By Document 12/24/18 09:21 MW [id number] 12/24/18 09:25 MW 12/24/18 09:21 Wound Center Nurse 2 #2 Rt Abdomen -Time 09:21 -Correct Patient Yes -Correct Side, Site, Position Yes -Correct Procedure Yes -Procedure Performed Yes -Type of Procedure Debridement -Clinical Debridement Subcutaneous -Post Debridement Size (cm) - Length 0.9 -Post Debridement Size (cm) - Width 0.3 -Post Debridement Size (cm) - Depth 0.1 -Total Square Cm 0.27 -Wound/Ulcer Outcome Not Healed -Ulcer Cleansing Rinsed/ Irrigated with Saline -Foul Odor after Cleansing No -Bioengineered Tissue No -Bleeding Controlled with Pressure -Other undermining 12- 5 - 0.4cm -Offloading No -Treatment Response Procedure Tolerated Well Pain Scale: 0-10 Numeric Is Patient Pain Free? Yes Wound debrided: Abdominal Wound Grade/Stage: Stage II Type of Debridement: Excisional debridement Anesthesia Used: 4% Lidocaine Solution Depth: Down to and including healthy tissue, in the subcutaneous layer Percentage of wound debrided: 100 Instrument Used: 3mm curette Tissue Removed: Slough and devitalized tissue Severity: Fat Layer Exposed Amount of bleeding with debridement: Mild Bleeding Controlled with: Pressure Patient tolerated procedure well Assessment/Plan Active Problems Skin ulcer of abdominal wall with fat layer exposed (Chronic) Hidradenitis suppurativa (Chronic) Assessment: Same as above. Plan: Improving. Debridement done as documented above, procedure was well- tolerated. Continue Amara with Adaptic over top. Change daily. Ensure Amara to the undermining. Chronic groin wound still closed. Continue Adaptic and gauze. Increased protein intake recommended. Follow-up in 1 week. All questions were answered and she was advised to call with any further questions or concerns. This note was generated with [employer] software. It may contain incorrect words, spelling, and punctuation that were not noted in checking the note before signing.
[2018-12-31 08:15] VITALS: BP 150/95; PULSE 80; RESP 16; TEMP 36.1; BMI 39.1
--- NOTE | 2018-12-31 08:33 | PCM.WC.PN ---
(1) Skin ulcer of abdominal wall with fat layer exposed Status: Chronic Current Visit: Yes Code(s): L98.492 - Non-pressure chronic ulcer of skin of other sites with fat layer exposed (2) Hidradenitis suppurativa Status: Chronic Current Visit: Yes Code(s): L73.2 - Hidradenitis suppurativa Type of Wound Chief Complaint: Chronic non healing abdominal ulcer. History of Wound: Ms. Cook is a 58yo with PMH as stated above who presented to the wound center due to non helaing abdominal ulcers and recurrent groin ulceration / drainage due to hydradenitis suppurativa. Regarding her abdominal wound, it is said to have been present since 2017. she denies any known precipitating factor and states that she just noted bloody drainage followed by the opening. She has been on bactrim as well as some wound care management without any significant improvement. Groin ulcer is chronic ( Years ) and typically resolves with neosporin and guaze. occassionally opens up and drains purulent substances. Surgery has been recommended however, she is not open to this. She feels well otherwise and denies chills,fever, nausea or vomitting. Progress of Wound: Stable. No concerns at this time. - Physical Exam Vital Signs Temp Pulse Resp BP 97.0 F L 80 16 150/95 H 12/31/18 08:15 12/31/18 08:15 12/31/18 08:15 12/31/18 08:15 General: Alert, Oriented x3, Cooperative, No apparent distress HEENT: Atraumatic, Normocephalic Oral: Moist Mucosa Neck: Supple Lungs: Normal air movement Abdomen: Soft, Non Tender Extremities: No cyanosis Wound Measurements and Assessment WC - Nurse 1 - General Ulcer Measurement Start: 12/24/18 08:54 Freq: Status: Active Protocol: Activity Type Activity Date Activity User E-Sign Co-Sign Detail Recorded Client Recorded Date Recorded By Document 12/31/18 08:15 WI [id number] 12/31/18 08:21 WI 12/31/18 08:15 Wound Center Nurse 1 [Ulcer Assessment] #2 Rt Abdomen -Combined with other wound No -Current Size (cm) - Length 1.4 -Current Size (cm) - Width 1.5 -Current Size (cm) - Depth 0.2 -Total Square Cm 2.10 -Photo Taken No -Tunneling No -Undermining/Tunneling No -Circular Undermining No -Exudate Amt None Present -Wound Margin Flat & Intact -Granulation Amt Large (67-100%) -Granulation Quality Red -Slough/Fibrin No -Texture (Luz Elena-wound Skin Appearance) Assessed -Moisture (Luz Elena-wound Skin Appearance Assessed ) -Color (Luz Elena-wound Skin Appearance) Assessed Erythema -Temperature (Luz Elena-wound Skin No Abnormality Appearance) (Pt Warm) -Tenderness on Palpation (Luz Elena-wound No Skin Appearance) -Ulcer Cleansing Rinsed/ Irrigated with Saline -Foul Odor after Cleansing No -Anesthetic Used 4% Lidocaine Solution [Edema Assessment] -Lower Limb Edema Present NA Musculoskeletal: No Muscle Wasting Neurological: Cranial nerves II-XII grossly intact Psych/Mental Status: Normal Affect Debridement Note Post-Debridement Measurements/Treatment WC - Nurse 2 - General Ulcer CM Notes Start: 12/24/18 08:54 Freq: Status: Active Protocol: Activity Type Activity Date Activity User E-Sign Co-Sign Detail Recorded Client Recorded Date Recorded By Document 12/24/18 09:21 MW [id number] 12/24/18 09:25 MW 12/24/18 09:21 Wound Center Nurse 2 #2 Rt Abdomen -Time 09:21 -Correct Patient Yes -Correct Side, Site, Position Yes -Correct Procedure Yes -Procedure Performed Yes -Type of Procedure Debridement -Clinical Debridement Subcutaneous -Post Debridement Size (cm) - Length 0.9 -Post Debridement Size (cm) - Width 0.3 -Post Debridement Size (cm) - Depth 0.1 -Total Square Cm 0.27 -Wound/Ulcer Outcome Not Healed -Ulcer Cleansing Rinsed/ Irrigated with Saline -Foul Odor after Cleansing No -Bioengineered Tissue No -Bleeding Controlled with Pressure -Other undermining 12- 5 - 0.4cm -Offloading No -Treatment Response Procedure Tolerated Well Pain Scale: 0-10 Numeric Is Patient Pain Free? Yes No debridement was completed today Assessment/Plan Active Problems Skin ulcer of abdominal wall with fat layer exposed (Chronic) Hidradenitis suppurativa (Chronic) Assessment: Same as above. Plan: Pretty much fully epithelialized. Very minimal undermining. 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 Continue Amara with Adaptic over top to the area of undermining. Change daily. Advised to follow-up with her primary care physician. No indication for continued follow-up at the wound center as it is essentially healed chronic groin wound still closed. Continue Adaptic and gauze. Periwound dermatitis/reaction to tape. Advised to protect the area and monitor closely. Increased protein intake recommended. Advised to call with any questions or concerns. Discharge from the wound center. This note was generated with [employer] dictation software. It may contain incorrect words, spelling, and punctuation that were not noted in checking the note before signing.
--- NOTE | 2018-12-31 08:37 | PN.PCM_ITS ---
(1) Skin ulcer of abdominal wall with fat layer exposed Status: Chronic Current Visit: Yes Code(s): L98.492 - Non-pressure chronic ulcer of skin of other sites with fat layer exposed (2) Hidradenitis suppurativa Status: Chronic Current Visit: Yes Code(s): L73.2 - Hidradenitis suppurativa Type of Wound Chief Complaint: Chronic non healing abdominal ulcer. History of Wound: Ms. Cook is a 58yo with PMH as stated above who presented to the wound center due to non helaing abdominal ulcers and recurrent groin ulceration / drainage due to hydradenitis suppurativa. Regarding her abdominal wound, it is said to have been present since 2017. she denies any known precipitating factor and states that she just noted bloody drainage followed by the opening. She has been on bactrim as well as some wound care management without any significant improvement. Groin ulcer is chronic ( Years ) and typically resolves with neosporin and guaze. occassionally opens up and drains purulent substances. Surgery has been recommended however, she is not open to this. She feels well otherwise and denies chills,fever, nausea or vomitting. Progress of Wound: Stable. No concerns at this time. - Physical Exam Vital Signs Temp Pulse Resp BP 97.0 F L 80 16 150/95 H 12/31/18 08:15 12/31/18 08:15 12/31/18 08:15 12/31/18 08:15 General: Alert, Oriented x3, Cooperative, No apparent distress HEENT: Atraumatic, Normocephalic Oral: Moist Mucosa Neck: Supple Lungs: Normal air movement Abdomen: Soft, Non Tender Extremities: No cyanosis Wound Measurements and Assessment WC - Nurse 1 - General Ulcer Measurement Start: 12/24/18 08:54 Freq: Status: Active Protocol: Activity Type Activity Date Activity User E-Sign Co-Sign Detail Recorded Client Recorded Date Recorded By Document 12/31/18 08:15 ME [id number] 12/31/18 08:21 ME 12/31/18 08:15 Wound Center Nurse 1 [Ulcer Assessment] #2 Rt Abdomen -Combined with other wound No -Current Size (cm) - Length 1.4 -Current Size (cm) - Width 1.5 -Current Size (cm) - Depth 0.2 -Total Square Cm 2.10 -Photo Taken No -Tunneling No -Undermining/Tunneling No -Circular Undermining No -Exudate Amt None Present -Wound Margin Flat & Intact -Granulation Amt Large (67-100%) -Granulation Quality Red -Slough/Fibrin No -Texture (Luz Elena-wound Skin Appearance) Assessed -Moisture (Luz Elena-wound Skin Appearance Assessed ) -Color (Luz Elena-wound Skin Appearance) Assessed Erythema -Temperature (Luz Elena-wound Skin No Abnormality Appearance) (Pt Warm) -Tenderness on Palpation (Luz Elena-wound No Skin Appearance) -Ulcer Cleansing Rinsed/ Irrigated with Saline -Foul Odor after Cleansing No -Anesthetic Used 4% Lidocaine Solution [Edema Assessment] -Lower Limb Edema Present NA Musculoskeletal: No Muscle Wasting Neurological: Cranial nerves II-XII grossly intact Psych/Mental Status: Normal Affect Debridement Note Post-Debridement Measurements/Treatment WC - Nurse 2 - General Ulcer CM Notes Start: 12/24/18 08:54 Freq: Status: Active Protocol: Activity Type Activity Date Activity User E-Sign Co-Sign Detail Recorded Client Recorded Date Recorded By Document 12/24/18 09:21 MW [id number] 12/24/18 09:25 MW 12/24/18 09:21 Wound Center Nurse 2 #2 Rt Abdomen -Time 09:21 -Correct Patient Yes -Correct Side, Site, Position Yes -Correct Procedure Yes -Procedure Performed Yes -Type of Procedure Debridement -Clinical Debridement Subcutaneous -Post Debridement Size (cm) - Length 0.9 -Post Debridement Size (cm) - Width 0.3 -Post Debridement Size (cm) - Depth 0.1 -Total Square Cm 0.27 -Wound/Ulcer Outcome Not Healed -Ulcer Cleansing Rinsed/ Irrigated with Saline -Foul Odor after Cleansing No -Bioengineered Tissue No -Bleeding Controlled with Pressure -Other undermining 12- 5 - 0.4cm -Offloading No -Treatment Response Procedure Tolerated Well Pain Scale: 0-10 Numeric Is Patient Pain Free? Yes No debridement was completed today Assessment/Plan Active Problems Skin ulcer of abdominal wall with fat layer exposed (Chronic) Hidradenitis suppurativa (Chronic) Assessment: Same as above. Plan: Pretty much fully epithelialized. Very minimal undermining. 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 Continue Amara with Adaptic over top to the area of undermining. Change daily. Advised to follow-up with her primary care physician. No indication for continued follow- up at the wound center as it is essentially healed chronic groin wound still closed. Continue Adaptic and gauze. Periwound dermatitis/reaction to tape. Advised to protect the area and monitor closely. Increased protein intake recommended. Advised to call with any questions or concerns. Discharge from the wound center. This note was generated with [employer] dictation software. It may contain incorrect words, spelling, and punctuation that were not noted in checking the note before signing.
== END 2019-01-19 23:59 ==
LOC: WC 08:00
PROVIDERS: Family Provider Family Medicine; PCP Family Medicine; Referring Provider Internal Medicine; Visit Provider Internal Medicine
DX: L73.2 Hidradenitis suppurativa (principal); L98.492 Non-pressure chronic ulcer of skin of other sites with fat layer exposed
CPT/HCPCS: 11042; 99213; G0463

== ENCOUNTER → 2019-04-12 06:48 | Outpatient (CLI) | payer OTHER, SELFPAY ==
--- NOTE | 2019-04-12 06:52 | BI_ITS ---
MAMMOGRAPHY - BILATERAL SCREENING 3-D TOMOSYNTHESIS REASON FOR EXAM: Female, 59 years old. Bilateral Screening 3-D tomosynthesis PERTINENT HISTORY: No significant family history. TECHNIQUE: 2-D mammograms and 3-D Tomosynthesis of the breast (s) were performed. CAD was performed. COMPARISON: None. FINDINGS: The breast composition is composed of scattered fibroglandular density. Scattered benign calcifications are seen. No dense spiculated masses or suspicious microcalcifications are identified. No architectural distortion is identified. There is no skin thickening or retraction. Stable dilated vessels in the left breast. There has been no significant change since the prior study. BI/SCREEN MAMM (CAD) W/JOSE ENRIQUE BILAT IMPRESSION: No mammographic signs of malignancy. Routine yearly mammograms recommended. ASSESSMENT CATEGORY: BIRADS Category 2: Benign. A letter regarding these results will be sent to the patient by the facility within 30 days. FOLLOW UP RECOMMENDATION: Yearly follow up mammogram recommended. (A) Approximately 10% of breast cancers are not detected by mammography. A normal mammogram should not delay biopsy of a clinically suspicious abnormality. Electronically Signed: Riley Quiñones MD at 7:56 EDT , Service support ,
== END ==
PROVIDERS: Family Provider Family Medicine; PCP Family Medicine; Referring Provider Family Medicine; Visit Provider Family Medicine
DX: Z12.31 Encounter for screening mammogram for malignant neoplasm of breast (principal)
CPT/HCPCS: 77063; 77067

== ENCOUNTER → 2019-07-20 09:36 | Outpatient (CLI) | payer OTHER, SELFPAY ==
[2019-07-20 10:38] LABS: Absolute Lymphocyte Count 2.62 X10^3/uL (0.83-4.51); Absolute Neutrophil Count 6.8 X10^3/uL (2.0-7.7); Basophil# 0.04 X10^3/uL; Basophil% 0.4 % (0-1); Eosinophil# 0.15 X10^3/uL; Eosinophils% 1.5 % (0-5); Hematocrit 44.9 % (37-47); Hemoglobin 14.4 g/dL (12.0-15.0); Lymphocyte # 2.62 X10^3/ul (4.0); Lymphocyte % 26.2 % (19-41); Mean Corp Hgb Conc 32.1 g/dL (32-36); Mean Corpuscular Hgb 30.8 pg (27.0-32.0); Mean Corpuscular Volume 95.9 fL (81-99); NRBC Flagged by Analyzer 0 % (0-5); Neutrophil # 6.77 X10^3/uL (2.7-7.7); Neutrophil % 67.7 % (47-70); Platelet Count 299 K/mm3 (150-450); RBC Distribution Width CV 14.4 % (11.6-14.6); Red Blood Count 4.68 M/mm3 (4.2-5.4)
[2019-07-20 10:39] LABS: Color, Urine Yellow (Yellow); Glucose, Dipstick Normal (Normal); Ketone-Dipstick Negative (Negative); Leukocyte Esterase-Dipstick Negative /ul (Negative); Nitrite-Dipstick Negative (Negative); Occult Blood-Urine 25 /ul (Negative); Protein-Dipstick 30 mg/dl (Negative); Urine Bilirubin Dipstick Negative (Negative); Urine Clarity Sl. Cloudy (Clear); Urine Urobilinogen Normal (Normal)
[2019-07-20 11:13] LABS: ALB/GLOB Ratio 0.9 RATIO (0.9-2.4); AST(SGOT) 17 U/L (15-37); Alanine Aminotransfer ALT/SGPT 34 U/L (13-56); Albumin, Serum 3.6 g/dL (3.2-5.0); Alkaline Phosphatase 84 U/L (45-117); BUN 20 mg/dL (7-18); BUN/Creat Ratio 21.7 RATIO (10-20); Calcium,Total 8.6 mg/dL (8.5-10.1); Cholesterol 197 mg/dL (200); Creatinine, Serum 0.92 mg/dL (0.55-1.02); EST Glomerular Filtration Rate 66 mL/min (>60); Est Glom Filt Rate - Afr Amer 80 mL/min (>60); Globulin 3.9 g/dL (2.2-4.2); Glucose 93 mg/dL (74-106); Protein, Total 7.5 g/dL (6.4-8.2); Triglycerides 90 mg/dL
[2019-07-20 11:14] LABS: Anion Gap 5 (5-15); Chloride 106 mmol/L (98-107); High Density Lipoprotein 69 mg/dL; Potassium 4.1 mmol/L (3.5-5.1); Sodium Level 139 mmol/L (136-145); Very Low Density Lipoprotein 18 mg/dL (5-40)
== END ==
PROVIDERS: Family Provider Family Medicine; PCP Family Medicine; Referring Provider Family Medicine; Visit Provider Family Medicine
DX: Z00.00 Encounter for general adult medical examination without abnormal findings (principal); I10 Essential (primary) hypertension
CPT/HCPCS: 36415; 80053; 80061; 81002; 85025

== ENCOUNTER 2020-03-15 05:33 | Inpatient (IN) | payer OTHER, SELFPAY ==
[2020-03-15 05:35] VITALS: BP 146/98; PULSE 95; RESP 18; TEMP 36.9; O2SAT 95; BMI 42.3
--- NOTE | 2020-03-15 05:45 | CT_ITS ---
STUDY: CT ABDOMEN AND PELVIS WITHOUT CONTRAST REASON FOR EXAM: Female, 60 years old. Abdominal pain and vomiting. Increased white blood count. Increased blood pressure. RADIATION DOSAGE (If Supplied By Facility): CTDIvol = ( 21.66 ) mGy, DLP = ( 1152.41 ) mGycm TECHNIQUE: Transaxial images were obtained from the dome of the diaphragm to the symphysis pubis without oral contrast, and without intravenous contrast. Sagittal and coronal images were reconstructed. Individualized dose optimization techniques were used for this CT. COMPARISON: None. FINDINGS: The visualized lung bases are unremarkable. The visualized portions of the heart are within normal limits. Normal liver. Gallbladder absent compatible with cholecystectomy as per history obtained from the emergency department. Normal spleen. Normal pancreas. Normal right adrenal gland. 1.6 cm left adrenal nodule with attenuation suggestive of an adrenal adenoma. 1.7 cm exophytic solid nodule or complex cyst right kidney. 1.7 cm exophytic cyst inferior pole left kidney. Surgical clips adjacent to the stomach. Fluid-filled loops of small bowel, some dilated to 3.7 cm, compatible with a mid small bowel obstruction. Transition zone in the mid pelvis axial images 135 through 137. Diverticulosis involving the descending and sigmoid colon. The appendix is visualized and appears normal. There is atherosclerotic calcification of the abdominal aorta, without a demonstrated aneurysm. There is an IVC filter in place. Normal retroperitoneum. No intra-abdominal free air. Normal urinary bladder. Uterus is not enlarged. No adnexal mass is seen. Surgical clips anterior abdominal wall in the midline. Convex left lumbar curvature. Degenerative changes of the lower thoracic and lumbar spine. CT/Abdomen/Pelvis without Cont IMPRESSION: Mid small bowel obstruction. 1.7 cm solid nodule or complex cyst right kidney. Left renal cyst. These findings can be correlated with renal ultrasound. Left-sided diverticulosis. 1.6 cm left adrenal adenoma which is usually an incidental finding. Additional nonemergent findings as above. Electronically Signed: Alvaro Groves MD at 6:40 EDT , Service support ,
--- NOTE | 2020-03-15 05:48 | ED.DCSUM_ITS ---
History of Present Illness Chief Complaint: Abd Pain Narrative: Patient presenting for evaluation secondary to abdominal pain nausea and vomiting. Patient has a underlying history of multiple abdominal surgeries including section, gastric surgery, and cholecystectomy. Patient reports that she had a nice dinner this evening, but at about 9 PM she had an onset of sharp epigastric abdominal pain. She reports that this is a continuous pain that is worse with movement. Patient reports that she tried to go to bed tonight, even took some NyQuil to see if she could fall asleep but remained awake secondary to the pain at about midnight she developed emesis and nausea. Patient states that she has had at least 7 episodes of nonbloody nonbilious emesis, but it is somewhat brown in discoloration. Patient denies any diarrhea. She does report that she still passing flatus. She denies fever associated with this. Review of systems otherwise negative. Past Medical History - Allergies and Home Meds Allergies/Adverse Reactions: Allergies GÓMEZ Inhibitors Allergy (Verified 03/15/20 05:35) NEEDS FOLLOW-UP cough Penicillins [PCN] Allergy (Verified 03/15/20 05:34) Unknown Primary Care Physician: Jabier Gurrola MD [Primary Care Provider] - Prior records reviewed: Yes Past Medical History: - - Depression, hypertension Surgical History: - - Gastric surgery, section, cholecystectomy Smoking Status: Current some day smoker Review of Systems General: Denies: Chills, Fever, Sweats Eyes: Denies: Visual changes - bilaterally, Diplopia ENT: Denies: Rhinorrhea, Sore throat Cardiovascular: Denies: Chest pain, Palpitations Respiratory: Denies: Dyspnea, Cough, Dyspnea on exertion Gastrointestinal: Reports: Abdominal pain, Nausea, Vomiting Genitourinary: Denies: Dysuria, Hematuria, Frequency Musculoskeletal: Denies: Back pain, Extremity Pain Skin: Denies: Rash, Wounds Neurological: Denies: Headache, Weakness, Numbness Physical Exam Vital Signs/Narrative: Vital Signs Temp Pulse Resp BP Pulse Ox 03/15/20 05:35 98.5 F 95 18 146/98 H 95 Inital Vital Signs reviewed: Yes General: Well nourished, Well developed, Obese, No Acute Distress Head: Normocephalic, Atraumatic Eyes: Perrl, EOMI ENT: Moist mucous membranes, No rhinorrhea Neck: Supple, Nontender Cardiovascular: Regular rate, Regular rhythm, No murmurs Respiratory: No distress, CTA bilaterally, Chest nontender Abdomen: Soft, Nondistended, Normal bowel sounds, Tender, - - Large midline abdominal surgical scar. Patient reports that she feels that there is may be some abnormal distention of her abdomen but this is difficult to ascertain as the patient is somewhat obese. I am not able to palpate discrete masses Back: Nontender, Normal Inspection Extremities: Nontender, No edema Skin: Normal color, No rash Neurological: Alert, Oriented x3, Cranial nerves II-XII grossly intact, Normal Strength, Normal Sensation Psychological: Normal affect, Normal Mood Diagnostic/Tx/Re-eval Clinical Impression(s) from Imaging Studies Abdomen/Pelvis CT 03/15/20 05:45 IMPRESSION: Mid small bowel obstruction. 1.7 cm solid nodule or complex cyst right kidney. Left renal cyst. These findings can be correlated with renal ultrasound. Left-sided diverticulosis. 1.6 cm left adrenal adenoma which is usually an incidental finding. Additional nonemergent findings as above. Electronically Signed: Alvaro Groves MD at 6:40 EDT , Service support , Laboratory Data 03/15/20 03/15/20 05:41 05:41 WBC 15.2 H RBC 5.13 Hgb 16.0 H Hct 49.0 H MCV 95.5 MCH 31.2 MCHC 32.7 RDW Std Deviation 49.6 H RDW Coeff of Cheryl 14.1 Plt Count 341 MPV 11.2 Immature Gran % (Auto) 0.400 Neut % (Auto) 87.0 H Lymph % (Auto) 8.9 L White % (Auto) 2.9 Eos % (Auto) 0.5 Baso % (Auto) 0.3 Absolute Neuts (auto) 13.2 H Absolute Lymphs (auto) 1.35 Nucleated RBC % 0 Sodium 138 Potassium 4.2 Chloride 102 Carbon Dioxide 29.0 Anion Gap 7 BUN 24 H Creatinine 1.09 H Estim Creat Clear Calc 42.32 Est GFR (MDRD) Af Amer 65 Est GFR (MDRD) Non-Af 54 L BUN/Creatinine Ratio 22.0 H Glucose 141 H Calcium 10.2 H - Medical Decision Making Patient presented secondary to abdominal pain with nausea and vomiting. I was able to view the patient's emesis basin, and her emesis appears to be feculent and I am concerned for the possibility of a small bowel obstruction. IV was established laboratory studies were obtained. Patient was noted to have a leukocytosis. CT abdomen and pelvis demonstrates evidence of a small bowel obstruction with transition point in the pelvis. Patient was given Afrin and aerosolized lidocaine and a NG tube was placed. Patient requires admission at this point. I discussed patient's case with the hospitalist, the patient will be admitted. ED Disposition - Plan for ED Patient: Disposition: Acute Care Hospital [facility] Diagnosis: Small bowel obstruction due to adhesions, Renal cyst, right Referrals: Jabier Gurrola MD [Primary Care Provider] -
[2020-03-15 05:53] LABS: Absolute Lymphocyte Count 1.35 X10^3/uL (0.83-4.51); Absolute Neutrophil Count 13.2 X10^3/uL (2.0-7.7); Basophil# 0.04 X10^3/uL; Basophil% 0.3 % (0-1); Eosinophil# 0.08 X10^3/uL; Eosinophils% 0.5 % (0-5); Lymphocyte # 1.35 X10^3/ul (4.0); Lymphocyte % 8.9 % (19-41); Mean Corp Hgb Conc 32.7 g/dL (32-36); Mean Corpuscular Hgb 31.2 pg (27.0-32.0); Mean Corpuscular Volume 95.5 fL (81-99); Mean Platelet Vol. 11.2 fl (6.2-12.0); Monocyte# 0.44 X10^3/uL; Monocyte% 2.9 % (0-10); NRBC Flagged by Analyzer 0 % (0-5); Neutrophil # 13.23 X10^3/uL (2.7-7.7); Platelet Count 341 K/mm3 (150-450); RBC Distribution Width CV 14.1 % (11.6-14.6); RBC Distribution Width SD 49.6 fl (35.1-43.9); Red Blood Count 5.13 M/mm3 (4.2-5.4); White Blood Count 15.2 K/mm3 (4.4-11.0)
[2020-03-15 06:06] LABS: Anion Gap 7 (5-15); BUN 24 mg/dL (7-18); Calcium,Total 10.2 mg/dL (8.5-10.1); Chloride 102 mmol/L (98-107); Creatinine, Serum 1.09 mg/dL (0.55-1.02); EST Glomerular Filtration Rate 54 mL/min (>60); Est Glom Filt Rate - Afr Amer 65 mL/min (>60); Estimated Creatinine Clearance 42.32 ml/min; Glucose 141 mg/dL (74-106); Potassium 4.2 mmol/L (3.5-5.1); Sodium Level 138 mmol/L (136-145)
[2020-03-15] MEDS: 0.9% Normal Saline 1,000 ML 125 ML IV ×3 (06:07→17:03)
--- NOTE | 2020-03-15 06:12 | RAD_ITS ---
STUDY: X-RAY - ABDOMEN/PELVIS REASON FOR EXAM: Female, 60 years old. NG VERIFICATION. E.RMalaika Robertson REQUESTED KUB W/ BOTH DIAPHRAGMS TECHNIQUE: Single AP view of the abdomen / pelvis. COMPARISON: None. FINDINGS: Normal visualized lung bases. NG tube tip in the distal stomach There is an unremarkable bowel gas pattern. There is no demonstrated free abdominal air. The visualized liver, spleen and kidneys are grossly normal in size and morphology. Normal soft tissue structures. There are diffuse degenerative changes of the visualized lumbar spine. RAD/Abdomen Single View (Portable) IMPRESSION: No acute findings NG tube tip in the distal stomach Electronically Signed: Riley Quiñones MD at 7:37 EDT , Service support ,
[2020-03-15] MEDS: Lidocaine 4% 5 ML Ampul 2 ML INHALATION (06:31)
[2020-03-15] MEDS: Ondansetron 4 MG/2 ML Vial IV ×3 (06:34→20:21)
[2020-03-15] MEDS: Morphine 4 MG/ML Syringe IV ×5 (06:34→20:21)
[2020-03-15] MEDS: Oxymetazoline 0.05% 1 SPRAY SPRAY.BTL 2 SPRAY NASAL (06:41)
[2020-03-15 07:41] VITALS: BP 160/100; PULSE 76; RESP 18; TEMP 36.9; O2SAT 95
[2020-03-15 07:56] VITALS: BMI 40.3
[2020-03-15 08:05] VITALS: BMI 40.3
[2020-03-15 08:15] VITALS: BP 140/86; PULSE 74; RESP 18; TEMP 36.7; O2SAT 97
--- NOTE | 2020-03-15 11:07 | HP.PCM_ITS ---
Problem List (1) Small bowel obstruction Status: Acute History of Present Illness Date of Admission: 03/15/20 Chief Complaint: abdominal pain The patient is a 60 year old F began having abdominal pain around 1900 on 03/14. It progressively got worse and associated with nausea, vomiting and abdominal distention. She presented to ED this AM and found to have a SBO. An NG placed. Currently, feeling better. Had SBO several years ago, but did not have vomiting at this time and was more distended at that time.[] Past Medical History Past Medical History (Chronic Problems): Chronic Problems Skin ulcer of abdominal wall with fat layer exposed (Chronic) Skin ulcer of groin (Chronic) Recurrent. Hidradenitis suppurativa (Chronic) Medical History: Medical History (Last Updated 03/15/20 @ 11:[address] aDni Wiseman DO) Arthritis M19.90 Depression F32.9 Hidradenitis suppurativa L73.2 HTN (hypertension) I10 Allergies GÓMEZ Inhibitors Allergy (Verified 03/15/20 08:02) cough cough Penicillins [PCN] Allergy (Verified 03/15/20 08:02) long time ago -rash Home Medications: Ambulatory Orders Medication Instructions Recorded Meloxicam [Mobic] 15 mg PO DAILY 01/27/16 Oxycodone HCl/Acetaminophen 1 each PO Q6H PRN 01/27/16 [Oxycodon-Acetaminophen 7.5-325] Smz/Tmp Ds [Bactrim Ds] 800 mg PO DAILY 01/27/16 buPROPion tablets [Wellbutrin] 100 mg PO DAILY 01/27/16 Fluoxetine 40 mg PO DAILY 11/19/18 Valsartan/Hydrochlorothiazide 1 tab PO DAILY 03/15/20 [Valsartan-Hctz 320-12.5 mg Tab] Surgical History: Surgical History (Last Updated 03/15/20 @ 11:[address] Dani Wiseman DO) H/O section Z98.891 Hx of cholecystectomy Z90.49 Status post gastroplasty Z98.890 s/p revision Surgical History: - - Gastric surgery, section, cholecystectomy Smoking Status: Light Smoker (<10/day) Tobacco Use: Cigarettes Alcohol: Rare Drugs: None - *Family History Maternal History Items: Heart Disease, Hypertension Review of Systems Constitutional: Reports: Anorexia. Denies: Chills, Fever, Night Sweats, [place], Weakness Eyes: Denies: Blurred vision, Double vision HEENT: Denies: Head Aches, Sinus Congestion, Sinus Drainage Cardiovascular: Denies: Chest Pain, Palpitations Respiratory: Denies: Cough, Shortness of breath at rest, Sputum production Gastrointestinal: Reports: Abdominal Pain, Nausea, Vomiting Genitourinary: Denies: Dysuria Musculoskeletal: Denies: Joint Pain, Joint Tenderness Skin: Denies: Rash, Wounds Neurological: Denies: Numbness, Tingling, Focal weakness Psychiatric: Reports: Depression. Denies: Anxiety Hematologic/ Lymphatic: Denies: Easy Bruising, Easy Bleeding, Hx of blood clot Comment: All review of systems were negative except as mentioned above in the history of present illness and the other review of systems. VTE Information - Inpt Only VTE Present on Admission: No VTE Mechan Device Prophylaxis: None VTE Pharm Prophylaxis ordered?: Yes Patient Problems: Active and Suspected Problems Small bowel obstruction due to adhesions (Acute) Renal cyst, right (Acute) Small bowel obstruction (Acute) - Physical Exam Vitals/I&O's: Vital Signs Temp Pulse Resp BP Pulse Ox 36.7 C 74 18 140/86 H 97 03/15/20 08:15 03/15/20 08:15 03/15/20 08:15 03/15/20 08:15 03/15/20 08:15 Oxygen Delivery Method Room Air Weight: 103.3 kg Body Mass Index (BMI) 40.3 Intake and Output for Last 24 Hours 03/13/20 03/14/20 03/15/20 23:59 23:59 23:59 Intake Total 1000 / 1000 Balance 1000 / 1000 General: Alert, Cooperative, No apparent distress HEENT: Atraumatic, Normocephalic Oral: Moist Mucosa, No Gingival or Mucosal Lesions/ Ulcerations Neck: No Nodes, Thyroid Normal Size and Texture Lungs: Clear to auscultation, Normal air movement, No rhonchi, No wheeze, No rales Cardiovascular: Regular rate, Regular Rhythm, Normal S1, Normal S2, No murmurs Abdomen: Bowel Sounds Present, Soft, No Hepato-splenomegaly, Distended, - - RUQ tenderness Extremities: No edema, No Calf Tenderness Skin: No rashes, No breakdown Musculoskeletal: No Tenderness to Palpation of Joints or Extremities, No Muscle Wasting Neurological: Neuro grossly intact, Muscle tone normal Psych/Mental Status: Normal Affect, Appropriate Laboratory Results 03/15/20 05:41: WBC 15.2 H, RBC 5.13, Hgb 16.0 H, Hct 49.0 H, MCV 95.5, MCH 31.2, MCHC 32.7, RDW Std Deviation 49.6 H, RDW Coeff of Cheryl 14.1, Plt Count 341, MPV 11.2, Immature Gran % (Auto) 0.400, Neut % (Auto) 87.0 H, Lymph % (Auto) 8.9 L, [place] % (Auto) 2.9, Eos % (Auto) 0.5, Baso % (Auto) 0.3, Absolute Neuts (auto) 13.2 H, Absolute Lymphs (auto) 1.35, Nucleated RBC % 0 03/15/20 05:41: Sodium 138, Potassium 4.2, Chloride 102, Carbon Dioxide 29.0, Anion Gap 7, BUN 24 H, Creatinine 1.09 H, Estim Creat Clear Calc 42.32, Est GFR (MDRD) Af Amer 65, Est GFR (MDRD) Non-Af 54 L, BUN/Creatinine Ratio 22.0 H, Glucose 141 H, Calcium 10.2 H Clinical Impression(s) from Imaging Studies Abdomen/Pelvis CT 03/15/20 05:45 IMPRESSION: Mid small bowel obstruction. 1.7 cm solid nodule or complex cyst right kidney. Left renal cyst. These findings can be correlated with renal ultrasound. Left-sided diverticulosis. 1.6 cm left adrenal adenoma which is usually an incidental finding. Additional nonemergent findings as above. Electronically Signed: Alvaro Groves MD at 6:40 EDT , Service support , KUB X-Ray 03/15/20 06:12 IMPRESSION: No acute findings NG tube tip in the distal stomach Electronically Signed: Riley Quiñones MD at 7:37 EDT , Service support , Current Medications Dextrose (D50w Syringe) 0 gm IV X1 PRN; Protocol PRN Reason: Hypoglycemia Enoxaparin Sodium (Lovenox) 40 mg SC DAILY [facility] Glucagon () 1 mg IM .X1 PRN PRN Reason: Hypoglycemia Sodium Chloride () 1,000 mls @ 125 mls/hr IV .Q8H ESPERANZA Last Admin: 03/15/20 08:54 Dose: 125 mls/hr Documented by: Sodium Chloride () 250 mls @ 15 mls/hr IV .[id number] PRN PRN Reason: Saline Flush Morphine Sulfate () 4 mg IV Q3H PRN PRN PRN Reason: Pain Score 6-10/10 Ondansetron HCl (Zofran) 4 mg IV Q8H PRN PRN PRN Reason: NAUSEA/VOMITING Sodium Chloride () 10 - 40 ml IV UD PRN PRN Reason: SALINE FLUSH Assessment/Plan All Active Problems Small bowel obstruction due to adhesions (Acute) Renal cyst, right (Acute) Small bowel obstruction (Acute) 1. SBO: * slightly improved from earlier * NG placed, but currently off suction * if does well this afternoon, will remove NG * if worse, resume suction and consider consult general surgery 2. HTN * home medications held * monitor 3. VTE prophylaxis: mod risk. LMWH 4. Advanced care planning: DNRCCA Inpatient E&M: [id number] Init Hosp L3
[2020-03-15] MEDS: Enoxaparin 40 MG/0.4 ML Syringe SC (11:47)
[2020-03-15 14:15] VITALS: BP 157/97; PULSE 73; RESP 16; TEMP 36.7; O2SAT 94
[2020-03-15 20:14] VITALS: BP 133/78; PULSE 80; RESP 16; TEMP 36.9; O2SAT 93
[2020-03-16] MEDS: 0.9% Normal Saline 1,000 ML 125 ML IV ×3 (01:03→18:44)
[2020-03-16 02:27] VITALS: BP 140/63; PULSE 85; RESP 16; TEMP 36.9; O2SAT 92
[2020-03-16] MEDS: Ondansetron 4 MG/2 ML Vial IV ×2 (04:27→11:40)
[2020-03-16] MEDS: Morphine 4 MG/ML Syringe IV ×4 (05:44→21:37)
[2020-03-16 06:20] LABS: Absolute Lymphocyte Count 1.73 X10^3/uL (0.83-4.51); Absolute Neutrophil Count 9.2 X10^3/uL (2.0-7.7); Basophil# 0.02 X10^3/uL; Basophil% 0.2 % (0-1); Eosinophil# 0.05 X10^3/uL; Eosinophils% 0.4 % (0-5); Lymphocyte # 1.73 X10^3/ul (4.0); Lymphocyte % 14.8 % (19-41); Mean Corp Hgb Conc 31.8 g/dL (32-36); Mean Corpuscular Hgb 31.4 pg (27.0-32.0); Mean Corpuscular Volume 98.7 fL (81-99); Monocyte# 0.63 X10^3/uL; Monocyte% 5.4 % (0-10); NRBC Flagged by Analyzer 0 % (0-5); Neutrophil # 9.22 X10^3/uL (2.7-7.7); Platelet Count 250 K/mm3 (150-450); RBC Distribution Width CV 14.3 % (11.6-14.6); RBC Distribution Width SD 52.3 fl (35.1-43.9); Red Blood Count 4.46 M/mm3 (4.2-5.4); White Blood Count 11.7 K/mm3 (4.4-11.0)
[2020-03-16 06:45] LABS: AST(SGOT) 25 U/L (15-37); Alanine Aminotransfer ALT/SGPT 45 U/L (13-56); Albumin, Serum 3.5 g/dL (3.2-5.0); Alkaline Phosphatase 86 U/L (45-117); Anion Gap 5 (5-15); BUN 22 mg/dL (7-18); BUN/Creat Ratio 26.5 RATIO (10-20); Calcium,Total 8.7 mg/dL (8.5-10.1); Chloride 108 mmol/L (98-107); Creatinine, Serum 0.83 mg/dL (0.55-1.02); EST Glomerular Filtration Rate 74 mL/min (>60); Est Glom Filt Rate - Afr Amer 90 mL/min (>60); Estimated Creatinine Clearance 58.13 ml/min; Globulin 3.6 g/dL (2.2-4.2); Glucose 119 mg/dL (74-106); Potassium 4.1 mmol/L (3.5-5.1); Protein, Total 7.1 g/dL (6.4-8.2); Sodium Level 140 mmol/L (136-145)
[2020-03-16] MEDS: Enoxaparin 40 MG/0.4 ML Syringe SC (09:48)
[2020-03-16 09:52] VITALS: BP 133/88; PULSE 90; RESP 18; TEMP 36.8; O2SAT 93
--- NOTE | 2020-03-16 10:00 | CASEMGMT ---
RN CM TELECOMMUNICATIONS PROFESSIONAL CM to room to meet with patient for initial transition planning/care coordination assessment. RN LAXMI introduced self and role at [facility]. Pt voices understanding and consents to assessment at this time. Pt sitting up in chair in room at this time. Pt is A/O at this time and answers all questions appropriately. Care providers, pharmacy, and demographics verified/updated at this time. PCP: Dr Gurrola Specialists: none Preferred Pharmacy: [facility] Insurance: [employer] Prescription Benefit: Yes Living Will/HPOA: Has both LW and Healthcare ANASTASIA, who is her sister, Lindy Cadet. Pt aware copies are not on file @ [facility] LNOK: Son, sister, Lindy/ANASTASIA Living Arrangements: Lives alone in ranch-style home w/2 steps to enter. Independent. Transportation: Pt states drives self and states no transportation concerns at this time. DME: Denies using any DME and denies needs. . HHC/SNF: No history of either and no needs identified. Pt wishes to return home and states has no concerns with going home at time of discharge. 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 CM to follow for any discharge planning/needs. Pt voices no concerns/needs at this time. Advised pt to ask for CM if any questions/concerns/needs arise. Voices understanding. PLAN: Home Yasmin BARRIOS RN, CM
--- NOTE | 2020-03-16 10:56 | NURSING ---
Alysa, RN asked this RN to check on patient because she called out and said something about her IV. This RN entered room and asked patient what was needed and that this RN was notified that it was something about her IV. Patient looked at this RN and states that it beeps all of the time and that it is leaking and she can't stand it. Educated pt that IV had been leaking but is dry at this time- and that it is related to bending arm which causes fluid to have no other place to go. Patient states, I know. This RN offered to get a pillow for under patient's arm. Patient looked at this RN and said, NO, I want another IV. This RN notified Alysa that IV is working, not actively leaking but that patient wants another IV.
--- NOTE | 2020-03-16 10:58 | PN_ITS ---
Patient Problems: Active and Suspected Problems (Last Updated 03/15/20 @ 11:[address] Dani Wiseman, DO) Small bowel obstruction due to adhesions (Acute) Renal cyst, right (Acute) Small bowel obstruction (Acute) Reason for Visit: SBO Subjective: NG removed yesterday. Last night was having vomiting episodes, but has not had any further vomiting in several hours. Abdomen less distended. +BM today. Vitals/I&O's: Vital Signs Temp Pulse Resp BP Pulse Ox 36.8 C 90 18 133/88 H 93 03/16/20 09:52 03/16/20 09:52 03/16/20 09:52 03/16/20 09:52 03/16/20 09:52 Oxygen Delivery Method Room Air Weight: 103.3 kg Body Mass Index (BMI) 40.3 Intake and Output for Last 24 Hours 03/14/20 03/15/20 03/16/20 23:59 23:59 23:59 Intake Total 1999 Output Total 500 / 500 Balance 1999 1500 / 1500 General: Alert, No apparent distress HEENT: Atraumatic, Normocephalic Oral: Moist Mucosa, No Gingival or Mucosal Lesions/ Ulcerations Neck: No Nodes, Thyroid Normal Size and Texture Lungs: Clear to auscultation, Normal air movement, No rhonchi, No wheeze, No rales Cardiovascular: Regular rate, Regular Rhythm, Normal S1, Normal S2, No murmurs Abdomen: Bowel Sounds Present, Soft, Non Tender, Non-Distended, No Hepato- splenomegaly, Hypoactive Bowel Sounds, - - high-pitched bowel sounds Extremities: No edema, No Calf Tenderness Skin: No rashes, No breakdown Psych/Mental Status: Normal Affect, Appropriate Laboratory Results 03/16/20 06:10: WBC 11.7 H, RBC 4.46, Hgb 14.0, Hct 44.0, MCV 98.7, MCH 31.4, MCHC 31.8 L, RDW Std Deviation 52.3 H, RDW Coeff of Cheryl 14.3, Plt Count 250, MPV 11.0, Immature Gran % (Auto) 0.200, Neut % (Auto) 79.0 H, Lymph % (Auto) 14.8 L, [place] % (Auto) 5.4, Eos % (Auto) 0.4, Baso % (Auto) 0.2, Absolute Neuts (auto) 9.2 H, Absolute Lymphs (auto) 1.73, Nucleated RBC % 0 03/16/20 06:10: Sodium 140, Potassium 4.1, Chloride 108 H, Carbon Dioxide 27.0, Anion Gap 5, BUN 22 H, Creatinine 0.83, Estim Creat Clear Calc 58.13, Est GFR (MDRD) Af Amer 90, Est GFR (MDRD) Non-Af 74, BUN/Creatinine Ratio 26.5 H, Glucose 119 H, Calcium 8.7, Total Bilirubin 0.50, AST 25, ALT 45, Alkaline Phosphatase 86, Total Protein 7.1, Albumin 3.5, Globulin 3.6, Albumin/Globulin Ratio 1.0 Current Medications Dextrose (D50w Syringe) 0 gm IV X1 PRN; Protocol PRN Reason: Hypoglycemia Enoxaparin Sodium (Lovenox) 40 mg SC DAILY [facility] Last Admin: 03/16/20 09:48 Dose: 40 mg Documented by: Glucagon () 1 mg IM .X1 PRN PRN Reason: Hypoglycemia Sodium Chloride () 1,000 mls @ 125 mls/hr IV .Q8H [facility] Last Admin: 03/16/20 09:42 Dose: 125 mls/hr Documented by: Sodium Chloride () 250 mls @ 15 mls/hr IV .[id number] PRN PRN Reason: Saline Flush Morphine Sulfate () 4 mg IV Q3H PRN PRN PRN Reason: Pain Score 6-10/10 Last Admin: 03/16/20 05:44 Dose: 4 mg Documented by: Ondansetron HCl (Zofran) 4 mg IV Q8H PRN PRN PRN Reason: NAUSEA/VOMITING Last Admin: 03/16/20 04:27 Dose: 4 mg Documented by: Sodium Chloride () 10 - 40 ml IV UD PRN PRN Reason: SALINE FLUSH STROKE Vital Signs/Narrative: Vital Signs Temp Pulse Resp BP Pulse Ox 03/16/20 09:52 36.8 C 90 18 133/88 H 93 Medical Necessity - Tobacco Use Smoking Status: Light Smoker (<10/day) Tobacco Use: Cigarettes Assessment/Plan All Active Problems (Last Updated 03/15/20 @ 11:[address] Dani Wiseman, DO) Small bowel obstruction due to adhesions (Acute) Renal cyst, right (Acute) Small bowel obstruction (Acute) 1. SBO: * slightly improved from earlier * NG placed, then removed 03/15 * advance diet to clears 2. HTN * home medications held * monitor 3. VTE prophylaxis: mod risk. LMWH 4. Advanced care planning: DNRCCA Inpatient E&M: [id number] Subs Hosp L2
--- NOTE | 2020-03-16 11:29 | NURSING ---
Pt took a small amt of gingerale slowly and now is nauseated worse then this morning and painful. Facial grimacing, restless, and irritable. Dr. Wiseman aware and ordered Flat plate Abd -portable. Ordered. Will give pain medication and nausea medication.
[2020-03-16] MEDS: 0.9% Saline Lock 10 ML Syringe IV ×3 (11:40→16:56)
--- NOTE | 2020-03-16 12:20 | RAD_ITS ---
STUDY: X-RAY - ABDOMEN/PELVIS REASON FOR EXAM: Female, 60 years old. abdominal pain TECHNIQUE: AP supine and upright views of the abdomen and pelvis. COMPARISON: None. FINDINGS: Normal visualized lung bases. There is an unremarkable bowel gas pattern. There is no demonstrated free abdominal air. The visualized liver, spleen and kidneys are grossly normal in size and morphology. IVC filter noted There are diffuse degenerative changes of the visualized lumbar spine. RAD/Abdomen Single View (Portable) IMPRESSION: No acute findings Electronically Signed: Riley Quiñones MD at 12:38 EDT , Service support ,
--- NOTE | 2020-03-16 12:48 | NURSING ---
Addendum entered by Alysa Mcdonald 03/16/20 13:27: Dr. Wiseman aware. Only order was for additional 2mg morphine ivp. This nurse asked if he wanted to order anything for nausea and Dr. Wiseman stated, No. Original Note: Back recently from radiology. Pt states zofran and morphine barely touched the nausea and pain medication. This nurse will notify Dr. Wiseman.
[2020-03-16] MEDS: Morphine 2 MG/ML Syringe IV (13:42)
--- NOTE | 2020-03-16 14:49 | CON.PCM_ITS ---
Problem List (1) Small bowel obstruction due to adhesions Status: Acute Reason for Consult Date of Consultation: 03/16/20 Reason for Consultation: Small bowel obstruction History of Present Illness: The patient is a 60 year old F who is been in the hospital since yesterday with abdominal pain and nausea and vomiting. Initial CT scan showed dilated proximal small bowel with a transition point and she had an NG placed. NG was removed this morning and she was started on a diet and she still had nausea and vomiting. She is complaining of right-sided abdominal pain as well as nausea and continued vomiting. She does say that she is passing a little bit of flatus and had a small bowel movement this morning. She has had a bowel obstruction in the past which resolved conservatively. Past Medical History Past Medical History (Chronic Problems): Chronic Problems (Last Updated 03/15/20 @ 11:[address] Dani Wiseman DO) Skin ulcer of abdominal wall with fat layer exposed (Chronic) Skin ulcer of groin (Chronic) Recurrent. Hidradenitis suppurativa (Chronic) Medical History: Medical History (Last Updated 03/15/20 @ 11:[address] Dani Wiseman DO) Arthritis M19.90 Depression F32.9 Hidradenitis suppurativa L73.2 HTN (hypertension) I10 Allergies GÓMEZ Inhibitors Allergy (Verified 03/15/20 08:02) cough cough Penicillins [PCN] Allergy (Verified 03/15/20 08:02) long time ago -rash Home Medications: Ambulatory Orders Medication Instructions Recorded Meloxicam [Mobic] 15 mg PO DAILY 01/27/16 Oxycodone HCl/Acetaminophen 1 each PO Q6H PRN 01/27/16 [Oxycodon-Acetaminophen 7.5-325] Smz/Tmp Ds [Bactrim Ds] 800 mg PO DAILY 01/27/16 buPROPion tablets [Wellbutrin] 100 mg PO DAILY 01/27/16 Fluoxetine 40 mg PO DAILY 11/19/18 Valsartan/Hydrochlorothiazide 1 tab PO DAILY 03/15/20 [Valsartan-Hctz 320-12.5 mg Tab] Surgical History: Surgical History (Last Updated 03/15/20 @ 11:[address] Dani Wiseman DO) H/O section Z98.891 Hx of cholecystectomy Z90.49 Status post gastroplasty Z98.890 s/p revision Surgical History: - - Gastric surgery, section, cholecystectomy Smoking Status: Light Smoker (<10/day) Tobacco Use: Cigarettes Alcohol: Rare Drugs: None - *Family History Maternal History Items: Heart Disease, Hypertension Review of Systems Constitutional: Denies: Anorexia, Fever HEENT: Denies: Difficulty Swallowing, Hard of Hearing Cardiovascular: Denies: Chest Pain Respiratory: Denies: Cough, Shortness of Breath Gastrointestinal: Reports: Abdominal Pain, Nausea, Vomiting. Denies: Diarrhea, Hematemesis, Hematochezia Skin: Denies: Jaundice Neurological: Denies: Balance problems Hematologic/ Lymphatic: Denies: Anemia Patient Problems: Active and Suspected Problems (Last Updated 03/15/20 @ 11:[address] Dani Wiseman, DO) Small bowel obstruction due to adhesions (Acute) Renal cyst, right (Acute) Small bowel obstruction (Acute) - Physical Exam Vitals/I&O's: Vital Signs Temp Pulse Resp BP Pulse Ox 98.2 F 90 18 133/88 H 93 03/16/20 09:52 03/16/20 09:52 03/16/20 09:52 03/16/20 09:52 03/16/20 09:52 Oxygen Delivery Method Room Air Weight: 227 lb 11.8 oz Body Mass Index (BMI) 40.3 Intake and Output for Last 24 Hours 03/14/20 03/15/20 03/16/20 23:59 23:59 23:59 Intake Total 1999 2100 / 2100 Output Total 650 / 650 Balance 1999 1450 / 1450 General: Alert, Oriented x3 Neck: Supple, No JVD Lungs: Normal air movement Cardiovascular: Regular rate, Regular Rhythm Abdomen: Soft, Non-Distended, Tender Laboratory Results 03/16/20 06:10: WBC 11.7 H, RBC 4.46, Hgb 14.0, Hct 44.0, MCV 98.7, MCH 31.4, MCHC 31.8 L, RDW Std Deviation 52.3 H, RDW Coeff of Cheryl 14.3, Plt Count 250, MPV 11.0, Immature Gran % (Auto) 0.200, Neut % (Auto) 79.0 H, Lymph % (Auto) 14.8 L, [place] % (Auto) 5.4, Eos % (Auto) 0.4, Baso % (Auto) 0.2, Absolute Neuts (auto) 9.2 H, Absolute Lymphs (auto) 1.73, Nucleated RBC % 0 03/16/20 06:10: Sodium 140, Potassium 4.1, Chloride 108 H, Carbon Dioxide 27.0, Anion Gap 5, BUN 22 H, Creatinine 0.83, Estim Creat Clear Calc 58.13, Est GFR (MDRD) Af Amer 90, Est GFR (MDRD) Non-Af 74, BUN/Creatinine Ratio 26.5 H, Glucose 119 H, Calcium 8.7, Total Bilirubin 0.50, AST 25, ALT 45, Alkaline Phosphatase 86, Total Protein 7.1, Albumin 3.5, Globulin 3.6, Albumin/Globulin Ratio 1.0 Current Medications Dextrose (D50w Syringe) 0 gm IV X1 PRN; Protocol PRN Reason: Hypoglycemia Enoxaparin Sodium (Lovenox) 40 mg SC DAILY [facility] Last Admin: 03/16/20 09:48 Dose: 40 mg Documented by: Glucagon () 1 mg IM .X1 PRN PRN Reason: Hypoglycemia Sodium Chloride () 1,000 mls @ 125 mls/hr IV .Q8H [facility] Last Admin: 03/16/20 09:42 Dose: 125 mls/hr Documented by: Sodium Chloride () 250 mls @ 15 mls/hr IV .[id number] PRN PRN Reason: Saline Flush Morphine Sulfate () 4 mg IV Q3H PRN PRN PRN Reason: Pain Score 6-10/10 Last Admin: 03/16/20 11:41 Dose: 4 mg Documented by: Ondansetron HCl (Zofran) 4 mg IV Q8H PRN PRN PRN Reason: NAUSEA/VOMITING Last Admin: 03/16/20 04:27 Dose: 4 mg Documented by: Sodium Chloride () 10 - 40 ml IV UD PRN PRN Reason: SALINE FLUSH Last Admin: 03/16/20 13:42 Dose: 10 ml Documented by: Assessment/Plan All Active Problems (Last Updated 03/15/20 @ 11:[address] Dani Wiseman, DO) Small bowel obstruction due to adhesions (Acute) Renal cyst, right (Acute) Small bowel obstruction (Acute) 60-year-old female small bowel obstruction 1. the patient has a small bowel obstruction with a transition point in the anterior mid abdomen. She is having right-sided abdominal pain and has vomited a few times this morning. I recommended performing a small bowel follow- through. Radiology is unable to do this until tomorrow. I recommend replacing the NG tube and performing small bowel follow-through in the morning. If the follow-through shows continued obstruction I will plan for possible surgery tomorrow afternoon. If the patient improves before tomorrow morning I will cancel the study and try diet again. Virgilio Waite MD Pager: [facility] [address] [place] [address], [address] [place] [address] Office:
--- NOTE | 2020-03-16 15:50 | RAD_ITS ---
STUDY: X-RAY - ABDOMEN/PELVIS REASON FOR EXAM: Female, 60 years old. NG tube placement TECHNIQUE: 03/16/2020 COMPARISON: None. FINDINGS: There is an enteric tube noted with its tip in the proximal stomach. However, the side-port is at the GE junction. This could be advanced 5-10 cm for improved positioning. The lungs are clear. The visualized bowel demonstrates no evidence of obstruction. The visualized osseous structures are within normal limits. RAD/Abdomen Single View IMPRESSION: Enteric tube tip in the stomach. However, the side-port is at the GE junction. This could be advanced 5-10 cm for improved positioning. Electronically Signed: Kevan Lundberg, at 16:52 EDT Tel , Service support ,
--- NOTE | 2020-03-16 15:51 | NURSING ---
Valentín is in at this time. Radiology here with Portable KUB performing KUB.
[2020-03-16 17:40] VITALS: BP 143/75; PULSE 96; RESP 20; TEMP 37.1; O2SAT 97
--- NOTE | 2020-03-16 18:10 | NURSING ---
Dr. Waite was on the floor around 1700 when This nurse asked him to look at KUB results b/c they were not read yet and pt waiting to be hooked to suction. Dr. Waite said to advance 10cm and then hook to suction. No need to repeat KUB per Dr. Waite. This nurse advanced 10cm and hooked to suction. Immediately got 300cc of thick, yellow/brown gastric drainage. This nurse then flushed with 40cc of sterile water and then obtained 400cc more that was less thick.
[2020-03-16 22:45] VITALS: BP 148/72; PULSE 87; RESP 18; TEMP 37.3; O2SAT 99
[2020-03-17] VITALS (13 sets, daily range): BP systolic 112–141; BP diastolic 68–98; PULSE 80–93; RESP 16–20; TEMP 36.5–37.2; O2SAT 92–99; BMI 40.3
[2020-03-17] MEDS: Morphine 4 MG/ML Syringe IV ×4 (01:14→20:18)
[2020-03-17] MEDS: 0.9% Normal Saline 1,000 ML 125 ML IV ×2 (03:07→17:23)
[2020-03-17] MEDS: Ondansetron 4 MG/2 ML Vial IV (04:27)
[2020-03-17 06:00] LABS: Absolute Lymphocyte Count 1.32 X10^3/uL (0.83-4.51); Absolute Neutrophil Count 9.4 X10^3/uL (2.0-7.7); Basophil# 0.03 X10^3/uL; Basophil% 0.3 % (0-1); Eosinophil# 0.04 X10^3/uL; Eosinophils% 0.4 % (0-5); Hematocrit 46.3 % (37-47); Hemoglobin 13.8 g/dL (12.0-15.0); Lymphocyte # 1.32 X10^3/ul (4.0); Lymphocyte % 11.6 % (19-41); Mean Corp Hgb Conc 29.8 g/dL (32-36); Mean Corpuscular Hgb 31.8 pg (27.0-32.0); Mean Platelet Vol. 11.2 fl (6.2-12.0); Monocyte# 0.58 X10^3/uL; Monocyte% 5.1 % (0-10); NRBC Flagged by Analyzer 0 % (0-5); Neutrophil # 9.38 X10^3/uL (2.7-7.7); Neutrophil % 82.2 % (47-70); Platelet Count 207 K/mm3 (150-450); RBC Distribution Width CV 14.1 % (11.6-14.6); RBC Distribution Width SD 56.4 fl (35.1-43.9); Red Blood Count 4.34 M/mm3 (4.2-5.4); White Blood Count 11.4 K/mm3 (4.4-11.0)
[2020-03-17 06:27] LABS: Anion Gap 5 (5-15); BUN 23 mg/dL (7-18); BUN/Creat Ratio 36.6 RATIO (10-20); Calcium,Total 8.6 mg/dL (8.5-10.1); Chloride 107 mmol/L (98-107); Creatinine, Serum 0.63 mg/dL (0.55-1.02); EST Glomerular Filtration Rate 102 mL/min (>60); Est Glom Filt Rate - Afr Amer 124 mL/min (>60); Estimated Creatinine Clearance 76.59 ml/min; Glucose 108 mg/dL (74-106); Mean Corpuscular Volume 106.7 fL (81-99); Sodium Level 137 mmol/L (136-145)
[2020-03-17] MEDS: 0.9% Saline Lock 10 ML Syringe IV ×2 (07:58→18:24)
--- NOTE | 2020-03-17 08:03 | PN.SURG_ITS ---
Patient Problems: Active and Suspected Problems (Last Updated 03/15/20 @ 11:[address] Dani Wiseman, DO) Small bowel obstruction due to adhesions (Acute) Renal cyst, right (Acute) Small bowel obstruction (Acute) Subjective: Patient reports he is passing flatus but she still having some abdominal pain and had a lot out of her NG overnight - Physical Exam Vitals/I&O's: Vital Signs Temp Pulse Resp BP Pulse Ox 98.5 F 84 20 H 141/73 H 95 03/17/20 04:18 03/17/20 04:18 03/17/20 04:18 03/17/20 04:18 03/17/20 04:18 Oxygen Delivery Method Room Air Weight: 227 lb 11.8 oz Body Mass Index (BMI) 40.3 Intake and Output for Last 24 Hours 03/15/20 03/16/20 03/17/20 23:59 23:59 23:59 Intake Total 1999 3100 / 3100 1000 / 1000 Output Total 2150 / 2150 Balance 1999 950 / 950 1000 / 1000 General: Alert, Oriented x3 Lungs: Normal air movement Cardiovascular: Regular rate, Regular Rhythm Abdomen: Soft, Non-Distended, Tender Laboratory Results 03/17/20 05:52: WBC 11.4 H, RBC 4.34, Hgb 13.8, Hct 46.3, MCV 106.7 H D, MCH 31.8, MCHC 29.8 L D, RDW Std Deviation 56.4 H, RDW Coeff of Cheryl 14.1, Plt Count 207, MPV 11.2, Immature Gran % (Auto) 0.400, Neut % (Auto) 82.2 H, Lymph % (Auto) 11.6 L, [place] % (Auto) 5.1, Eos % (Auto) 0.4, Baso % (Auto) 0.3, Absolute Neuts (auto) 9.4 H, Absolute Lymphs (auto) 1.32, Nucleated RBC % 0 03/17/20 05:52: Sodium 137, Potassium 4.0, Chloride 107, Carbon Dioxide 25.0, Anion Gap 5, BUN 23 H, Creatinine 0.63, Estim Creat Clear Calc 76.59, Est GFR (MDRD) Af Amer 124, Est GFR (MDRD) Non-Af 102, BUN/Creatinine Ratio 36.6 H, Glucose 108 H, Calcium 8.6 Current Medications Dextrose (D50w Syringe) 0 gm IV X1 PRN; Protocol PRN Reason: Hypoglycemia Enoxaparin Sodium (Lovenox) 40 mg SC DAILY [facility] Last Admin: 03/16/20 09:48 Dose: 40 mg Documented by: Glucagon () 1 mg IM .X1 PRN PRN Reason: Hypoglycemia Sodium Chloride () 1,000 mls @ 125 mls/hr IV .Q8H [facility] Last Admin: 03/17/20 03:07 Dose: 125 mls/hr Documented by: Sodium Chloride () 250 mls @ 15 mls/hr IV .[id number] PRN PRN Reason: Saline Flush Morphine Sulfate () 4 mg IV Q3H PRN PRN PRN Reason: Pain Score 6-10/10 Last Admin: 03/17/20 07:58 Dose: 4 mg Documented by: Ondansetron HCl (Zofran) 4 mg IV Q8H PRN PRN PRN Reason: NAUSEA/VOMITING Last Admin: 03/17/20 04:27 Dose: 4 mg Documented by: Sodium Chloride () 10 - 40 ml IV UD PRN PRN Reason: SALINE FLUSH Last Admin: 03/17/20 07:58 Dose: 10 ml Documented by: Medical Necessity - Tobacco Use Smoking Status: Light Smoker (<10/day) Tobacco Use: Cigarettes Assessment/Plan All Active Problems (Last Updated 03/15/20 @ 11:[address] Dani Wiseman, DO) Small bowel obstruction due to adhesions (Acute) Renal cyst, right (Acute) Small bowel obstruction (Acute) 60-year-old female with small bowel obstruction 1. Patient had bilious output from her NG this morning. She is getting a small bowel follow-through this morning. If this does not advance to the colon I will take her this afternoon for laparoscopic and possible open small bowel obstruction surgery. Virgilio Waite MD Pager: [facility] [address] [place] [address], [address] [place] [address] Office:
--- NOTE | 2020-03-17 08:15 | RAD_ITS ---
STUDY: SMALL BOWEL FOLLOW-THROUGH STUDY WITH GASTROGRAFIN REASON FOR EXAM: Female, 60 years old. Abdominal pain and distention TECHNIQUE: 11 overhead films obtained COMPARISON: None. FINDINGS: Teller film demonstrates NG tube tip in the distal stomach. Bowel gas pattern is unremarkable there is some retained stool in the descending colon. IVC filter noted. Degenerative bony changes. Gastrografin was administered through the NG tube, serial films tracked progression of the Gastrografin. The stomach distends normally without evidence of abnormality. The duodenum is borderline distended and there appears to be a nonrotation as the contrast remains on the right side of the abdomen on the 30, 60, and 90 minute films. It is not until the 120 minute film contrast does go across the midline but I suspect this is from the jejunum. At 120 minutes the examination was stopped by Dr. Waite. RAD/Small Bowel Series Only IMPRESSION: Incomplete abnormal small bowel follow-through study. The visualized small bowel loops are borderline distended and I suspect there is nonrotation of the duodenum as the contrast within the duodenum does not cross the midline. Normal appearing stomach No extravasation of contrast outside the lumen of the intestines Electronically Signed: Riley Quiñones MD at 11:52 EDT , Service support ,
--- NOTE | 2020-03-17 11:15 | PCM.PN.BLA ---
Progress Note The small bowel follow-through did not show any progression of contrast beyond the small bowel. There appears to be an obstruction. I will plan for laparoscopy and possible open possible bowel resection this afternoon. I will discuss this with the patient and discussed risks including bleeding, infection, injury to surrounding organs, bowel resection, need for laparotomy. Patient will proceed with surgery this afternoon. Virgilio Waite MD Pager: [facility] [address] [place] [address] [address] [place] [phone] Office:
--- NOTE | 2020-03-17 11:18 | EKG12_ITS ---
Test Reason : PRE OP Blood Pressure : / mmHG Vent. Rate : 078 BPM Atrial Rate : 078 BPM P-R Int : 142 ms QRS Dur : 088 ms QT Int : 384 ms P-R-T Axes : 003 -35 -04 degrees QTc Int : 437 ms Normal sinus rhythm Left axis deviation Abnormal ECG When compared with ECG of 15-OCT-2007 04:14, No significant change was found Confirmed by MORE JAUREGUI ([id number]), book or script editor SHELBY ZHANG ([id number]) on 03/23/2020 12:04:48 PM Referred By: SINAN Confirmed By:MORE JAUREGUI
[2020-03-17] MEDS: Bupivacaine Mpf 0.5% 30 ML VIAL (15:43)
--- NOTE | 2020-03-17 16:07 | PCM.OPRPT ---
Problem List (1) Small bowel obstruction due to adhesions Status: Acute Report of Operation Date of Procedure: 03/17/20 Pre-Operative Diagnosis: Small bowel obstruction Post-Operative Diagnosis: Small bowel obstruction due to ventral hernia Surgery/Procedure Performed:: Exploratory laparoscopy with takedown of adhesions conversion to laparotomy with repair of ventral hernia Description of Procedure: Patient was brought to the operating room and general anesthesia was induced. Abdomen was prepped and draped in usual sterile fashion. Using Visiport technique a left upper quadrant port was placed. Abdomen was insufflated to 15 mmHg. Under direct visualization to left lower quadrant 5 mm ports were placed. There were dense adhesions that were taken down from the abdominal wall. These included bowel and omentum. It appeared that the transition point was a loop of small bowel associated with a ventral hernia. This was unable to be taken down laparoscopically. Next this was converted to a laparotomy in the lower abdomen and this was brought superiorly until the bowel was encountered. The hernia was opened and the bowel was dissected free sharply. The bowel was inspected and appeared viable with no injury. Adhesions to the surrounding loops of small bowel were taken down. The bowel was run from the ileocecal valve back to the area of question which was the transition point. Proximally the bowel was traced to the ligament of Treitz. There were bowel contents traversing forward after the takedown of the small bowel loop. A 0 PDS suture was used to close the hernia defect. Next the omentum was placed over the bowel and the abdomen was washed out and suctioned dry. The fascia was closed from bottom and top to the middle with running #1 PDS sutures. The subcutaneous tissue was irrigated and suctioned dry. Local anesthetic was used. The port sites were closed with interrupted 4-0 Monocryl sutures and the skin was closed with skin nafisa. Dressings were placed. Patient was taken to PACU in stable condition and tolerated the procedure well. - Admit VTE Documentation VTE Mechan Device Prophylaxis: SCD's
--- NOTE | 2020-03-17 16:30 | PN_ITS ---
Patient Problems: Active and Suspected Problems (Last Updated 03/15/20 @ 11:[address] Dani Wiseman, DO) Small bowel obstruction due to adhesions (Acute) Renal cyst, right (Acute) Small bowel obstruction (Acute) Reason for Visit: SBO Subjective: Post operative. No shortness of breath. Vitals/I&O's: Vital Signs Temp Pulse Resp BP Pulse Ox 37.2 C 81 16 126/98 H 96 03/17/20 16:00 03/17/20 16:15 03/17/20 16:15 03/17/20 16:15 03/17/20 16:15 Oxygen Flow Rate (L/min) 2 Oxygen Delivery Method Nasal Cannula Weight: 103.3 kg Body Mass Index (BMI) 40.3 Intake and Output for Last 24 Hours 03/15/20 03/16/20 03/17/20 23:59 23:59 23:59 Intake Total 1999 3100 / 3100 1724.75 / 1724.75 Output Total 2150 / 2150 2350 / 2350 Balance 1999 950 / 950 -625.25 / -625.25 General: Alert, - - groggy. Seen in PACU HEENT: Atraumatic, Normocephalic Oral: Moist Mucosa, No Gingival or Mucosal Lesions/ Ulcerations Neck: No Nodes, Thyroid Normal Size and Texture Lungs: Clear to auscultation, Normal air movement, No rhonchi, No wheeze, No rales Cardiovascular: Regular rate, Regular Rhythm, Normal S1, Normal S2 Abdomen: Hypoactive Bowel Sounds, Distended Extremities: No edema, No Calf Tenderness Laboratory Results 03/17/20 05:52: WBC 11.4 H, RBC 4.34, Hgb 13.8, Hct 46.3, MCV 106.7 H D, MCH 31.8, MCHC 29.8 L D, RDW Std Deviation 56.4 H, RDW Coeff of Cheryl 14.1, Plt Count 207, MPV 11.2, Immature Gran % (Auto) 0.400, Neut % (Auto) 82.2 H, Lymph % (Auto) 11.6 L, [place] % (Auto) 5.1, Eos % (Auto) 0.4, Baso % (Auto) 0.3, Absolute Neuts (auto) 9.4 H, Absolute Lymphs (auto) 1.32, Nucleated RBC % 0 03/17/20 05:52: Sodium 137, Potassium 4.0, Chloride 107, Carbon Dioxide 25.0, Anion Gap 5, BUN 23 H, Creatinine 0.63, Estim Creat Clear Calc 76.59, Est GFR (MDRD) Af Amer 124, Est GFR (MDRD) Non-Af 102, BUN/Creatinine Ratio 36.6 H, Glucose 108 H, Calcium 8.6 Current Medications Dextrose (D50w Syringe) 0 gm IV X1 PRN; Protocol PRN Reason: Hypoglycemia Enoxaparin Sodium (Lovenox) 40 mg SC DAILY [facility] Last Admin: 03/17/20 11:54 Dose: Not Given Documented by: Glucagon () 1 mg IM .X1 PRN PRN Reason: Hypoglycemia Sodium Chloride () 1,000 mls @ 125 mls/hr IV .Q8H [facility] Last Infusion: 03/17/20 08:04 Dose: 0 mls/hr Documented by: Sodium Chloride () 250 mls @ 15 mls/hr IV .[id number] PRN PRN Reason: Saline Flush Morphine Sulfate () 4 mg IV Q3H PRN PRN PRN Reason: Pain Score 6-10/10 Last Admin: 03/17/20 07:58 Dose: 4 mg Documented by: Ondansetron HCl (Zofran) 4 mg IV Q8H PRN PRN PRN Reason: NAUSEA/VOMITING Last Admin: 03/17/20 04:27 Dose: 4 mg Documented by: Sodium Chloride () 10 - 40 ml IV UD PRN PRN Reason: SALINE FLUSH Last Admin: 03/17/20 07:58 Dose: 10 ml Documented by: STROKE Vital Signs/Narrative: Vital Signs Temp Pulse Resp BP Pulse Ox 03/17/20 16:15 81 16 126/98 H 96 03/17/20 16:00 37.2 C 80 16 125/98 H 92 Medical Necessity - Tobacco Use Smoking Status: Light Smoker (<10/day) Tobacco Use: Cigarettes Assessment/Plan All Active Problems (Last Updated 03/15/20 @ 11:[address] Dani Wiseman, DO) Small bowel obstruction due to adhesions (Acute) Renal cyst, right (Acute) Small bowel obstruction (Acute) 1. SBO: * s/p Ex lap with takedown of adhesion and repair of ventral hernia * NG in place * mgmt per general surgery * NPO * pain control 2. HTN * home medications held * monitor 3. VTE prophylaxis: mod risk. LMWH 4. Advanced care planning: DNRCCA Inpatient E&M: 99181 Subs Hosp L2
[2020-03-18] MEDS: 0.9% Normal Saline 1,000 ML 125 ML IV ×3 (01:40→20:10)
[2020-03-18 02:05] VITALS: BP 137/77; PULSE 89; RESP 18; TEMP 37.3; O2SAT 94
[2020-03-18 02:06] VITALS: BMI 40.3
[2020-03-18] MEDS: Morphine 4 MG/ML Syringe IV ×4 (02:12→21:17)
[2020-03-18 06:15] VITALS: BP 141/83; PULSE 88; RESP 18; TEMP 37.2; O2SAT 95; BMI 40.3
[2020-03-18 07:48] LABS: Absolute Lymphocyte Count 1.07 X10^3/uL (0.83-4.51); Absolute Neutrophil Count 10.1 X10^3/uL (2.0-7.7); Basophil# 0.02 X10^3/uL; Basophil% 0.2 % (0-1); Eosinophil# 0.03 X10^3/uL; Eosinophils% 0.2 % (0-5); Hematocrit 42.2 % (37-47); Hemoglobin 13.5 g/dL (12.0-15.0); Lymphocyte # 1.07 X10^3/ul (4.0); Lymphocyte % 8.8 % (19-41); Mean Corpuscular Hgb 31.8 pg (27.0-32.0); Mean Corpuscular Volume 99.3 fL (81-99); Mean Platelet Vol. 11.3 fl (6.2-12.0); Monocyte# 0.92 X10^3/uL; Monocyte% 7.5 % (0-10); NRBC Flagged by Analyzer 0 % (0-5); Neutrophil # 10.12 X10^3/uL (2.7-7.7); Platelet Count 211 K/mm3 (150-450); RBC Distribution Width CV 14.3 % (11.6-14.6); RBC Distribution Width SD 52.2 fl (35.1-43.9); Red Blood Count 4.25 M/mm3 (4.2-5.4); White Blood Count 12.2 K/mm3 (4.4-11.0)
[2020-03-18 08:03] LABS: Anion Gap 6 (5-15); BUN 24 mg/dL (7-18); BUN/Creat Ratio 36.4 RATIO (10-20); Calcium,Total 8.2 mg/dL (8.5-10.1); Chloride 107 mmol/L (98-107); Creatinine, Serum 0.66 mg/dL (0.55-1.02); EST Glomerular Filtration Rate 97 mL/min (>60); Est Glom Filt Rate - Afr Amer 117 mL/min (>60); Estimated Creatinine Clearance 73.11 ml/min; Glucose 103 mg/dL (74-106); Potassium 3.5 mmol/L (3.5-5.1); Sodium Level 138 mmol/L (136-145)
--- NOTE | 2020-03-18 08:14 | NURSING ---
NG OUT at this time. Pt was encouraged to walk in ramirez at least three times throughout the day today. Pt is sitting up in chair.
[2020-03-18 08:20] VITALS: BMI 40.3
--- NOTE | 2020-03-18 09:06 | PN.SURG_ITS ---
Patient Problems: Active and Suspected Problems (Last Updated 03/15/20 @ 11:[address] Dani Wiseman, DO) Small bowel obstruction due to adhesions (Acute) Renal cyst, right (Acute) Small bowel obstruction (Acute) Subjective: No complaints this morning. She is having flatus. Objective: Abdomen is obese soft appropriately tender dressings are dry - Physical Exam Vitals/I&O's: Vital Signs Temp Pulse Resp BP Pulse Ox 99.0 F 88 18 141/83 H 95 03/18/20 06:15 03/18/20 06:15 03/18/20 06:15 03/18/20 06:15 03/18/20 06:15 Oxygen Flow Rate (L/min) 2 Oxygen Delivery Method Room Air Weight: 227 lb 11.8 oz Body Mass Index (BMI) 40.3 Intake and Output for Last 24 Hours 03/16/20 03/17/20 03/18/20 23:59 23:59 23:59 Intake Total 3100 / 3100 3764.75 / 3764.75 1000 / 1000 Output Total 2150 / 2150 2440 / 3490 1300 / 1300 Balance 950 / 950 1324.75 / 274.75 -300 / -300 Laboratory Results 03/18/20 07:21: WBC 12.2 H, RBC 4.25, Hgb 13.5, Hct 42.2, MCV 99.3 H D, MCH 31 .8, MCHC 32.0 D, RDW Std Deviation 52.2 H, RDW Coeff of Cheryl 14.3, Plt Count 211, MPV 11.3, Immature Gran % (Auto) 0.300, Neut % (Auto) 83.0 H, Lymph % (Auto) 8.8 L, [place] % (Auto) 7.5, Eos % (Auto) 0.2, Baso % (Auto) 0.2, Absolute Neuts (auto) 10.1 H, Absolute Lymphs (auto) 1.07, Nucleated RBC % 0 03/18/20 07:21: Sodium 138, Potassium 3.5, Chloride 107, Carbon Dioxide 25.0, Anion Gap 6, BUN 24 H, Creatinine 0.66, Estim Creat Clear Calc 73.11, Est GFR (MDRD) Af Amer 117, Est GFR (MDRD) Non-Af 97, BUN/Creatinine Ratio 36.4 H, Glucose 103, Calcium 8.2 L Current Medications Dextrose (D50w Syringe) 0 gm IV X1 PRN; Protocol PRN Reason: Hypoglycemia Enoxaparin Sodium (Lovenox) 40 mg SC DAILY [facility] Last Admin: 03/17/20 11:54 Dose: Not Given Documented by: Glucagon () 1 mg IM .X1 PRN PRN Reason: Hypoglycemia Sodium Chloride () 1,000 mls @ 125 mls/hr IV .Q8H [facility] Last Admin: 03/18/20 01:40 Dose: 125 mls/hr Documented by: Sodium Chloride () 250 mls @ 15 mls/hr IV .[id number] PRN PRN Reason: Saline Flush Morphine Sulfate () 4 mg IV Q3H PRN PRN PRN Reason: Pain Score 6-10/10 Last Admin: 03/18/20 06:35 Dose: 4 mg Documented by: Ondansetron HCl (Zofran) 4 mg IV Q8H PRN PRN PRN Reason: NAUSEA/VOMITING Last Admin: 03/17/20 04:27 Dose: 4 mg Documented by: Sodium Chloride () 10 - 40 ml IV UD PRN PRN Reason: SALINE FLUSH Last Admin: 03/17/20 18:24 Dose: 10 ml Documented by: Medical Necessity - Tobacco Use Smoking Status: Light Smoker (<10/day) Tobacco Use: Cigarettes Assessment/Plan All Active Problems (Last Updated 03/15/20 @ 11:[address] Dani Wiseman, DO) Small bowel obstruction due to adhesions (Acute) Renal cyst, right (Acute) Small bowel obstruction (Acute) Will DC the NG tube today. Okay for clear liquids.
[2020-03-18 12:00] VITALS: BP 158/92; PULSE 83; RESP 20; TEMP 36.8; O2SAT 98
[2020-03-18] MEDS: 0.9% Saline Lock 10 ML Syringe IV (12:00)
[2020-03-18] MEDS: Enoxaparin 40 MG/0.4 ML Syringe SC (12:02)
--- NOTE | 2020-03-18 12:02 | PCM.PN.HOSP ---
Patient Problems: Active and Suspected Problems (Last Updated 03/15/20 @ 11:[address] Dani Wiseman, DO) Small bowel obstruction due to adhesions (Acute) Renal cyst, right (Acute) Small bowel obstruction (Acute) Reason for Visit: SBO Subjective: NG removed. Abdomen feeling slightly better. +Flatus Vitals/I&O's: Vital Signs Temp Pulse Resp BP Pulse Ox 37.2 C 88 18 141/83 H 95 03/18/20 06:15 03/18/20 06:15 03/18/20 06:15 03/18/20 06:15 03/18/20 06:15 Oxygen Flow Rate (L/min) 2 Oxygen Delivery Method Room Air Weight: 103.3 kg Body Mass Index (BMI) 40.3 Intake and Output for Last 24 Hours 03/16/20 03/17/20 03/18/20 23:59 23:59 23:59 Intake Total 3100 / 3100 3764.75 / 3764.75 1000 / 1000 Output Total 2150 / 2150 2440 / 3490 1300 / 1300 Balance 950 / 950 1324.75 / 274.75 -300 / -300 General: Alert, No apparent distress HEENT: Atraumatic, Normocephalic Oral: Moist Mucosa, No Gingival or Mucosal Lesions/ Ulcerations Neck: No Nodes, Thyroid Normal Size and Texture Lungs: Clear to auscultation, Normal air movement, No rhonchi, No wheeze, No rales Cardiovascular: Regular rate, Regular Rhythm, Normal S1, Normal S2, No murmurs Abdomen: Bowel Sounds Present, Soft, Non Tender, Non-Distended, No Hepato-splenomegaly Extremities: No edema, No Calf Tenderness Laboratory Results 03/18/20 07:21: WBC 12.2 H, RBC 4.25, Hgb 13.5, Hct 42.2, MCV 99.3 H D, MCH 31.8, MCHC 32.0 D, RDW Std Deviation 52.2 H, RDW Coeff of Cheryl 14.3, Plt Count 211, MPV 11.3, Immature Gran % (Auto) 0.300, Neut % (Auto) 83.0 H, Lymph % (Auto) 8.8 L, Walker % (Auto) 7.5, Eos % (Auto) 0.2, Baso % (Auto) 0.2, Absolute Neuts (auto) 10.1 H, Absolute Lymphs (auto) 1.07, Nucleated RBC % 0 03/18/20 07:21: Sodium 138, Potassium 3.5, Chloride 107, Carbon Dioxide 25.0, Anion Gap 6, BUN 24 H, Creatinine 0.66, Estim Creat Clear Calc 73.11, Est GFR (MDRD) Af Amer 117, Est GFR (MDRD) Non-Af 97, BUN/Creatinine Ratio 36.4 H, Glucose 103, Calcium 8.2 L Current Medications Acetaminophen (Tylenol) 650 mg PO Q4H PRN PRN PRN Reason: Pain Score 1-10/10 Dextrose (D50w Syringe) 0 gm IV X1 PRN; Protocol PRN Reason: Hypoglycemia Enoxaparin Sodium (Lovenox) 40 mg SC DAILY [facility] Last Admin: 03/17/20 11:54 Dose: Not Given Documented by: Glucagon () 1 mg IM .X1 PRN PRN Reason: Hypoglycemia Sodium Chloride () 1,000 mls @ 125 mls/hr IV .Q8H [facility] Last Admin: 03/18/20 01:40 Dose: 125 mls/hr Documented by: Sodium Chloride () 250 mls @ 15 mls/hr IV .[id number] PRN PRN Reason: Saline Flush Morphine Sulfate () 4 mg IV Q3H PRN PRN PRN Reason: Pain Score 6-10/10 Last Admin: 03/18/20 11:58 Dose: 4 mg Documented by: Ondansetron HCl (Zofran) 4 mg IV Q8H PRN PRN PRN Reason: NAUSEA/VOMITING Last Admin: 03/17/20 04:27 Dose: 4 mg Documented by: Sodium Chloride () 10 - 40 ml IV UD PRN PRN Reason: SALINE FLUSH Last Admin: 03/18/20 12:00 Dose: 10 ml Documented by: Medical Necessity - Tobacco Use Smoking Status: Light Smoker (<10/day) Tobacco Use: Cigarettes Assessment/Plan All Active Problems (Last Updated 03/15/20 @ 11:[address] Dani Wiseman, DO) Small bowel obstruction due to adhesions (Acute) Renal cyst, right (Acute) Small bowel obstruction (Acute) 1. SBO: s/p Ex lap with takedown of adhesion and repair of ventral hernia NG d/c'd 03/18 mgmt per general surgery NPO pain control 2. HTN stable home medications held monitor 3. VTE prophylaxis: mod risk. LMWH 4. Advanced care planning: DNRCCA Inpatient E&M: 25073 Subs Hosp L2
[2020-03-18] MEDS: Acetaminophen 325 MG Tablet 650 MG PO ×3 (12:08→21:17)
[2020-03-18 14:05] VITALS: BMI 40.3
--- NOTE | 2020-03-18 16:12 | NURSING ---
Pt reports that she is burping but still no flatus. Pt just recently woke up from nap and states that was the best she has slept while here. Pt is now walking the [place]irez.
[2020-03-18 20:18] VITALS: BP 138/81; PULSE 77; RESP 17; TEMP 36.8; O2SAT 95
--- NOTE | 2020-03-18 20:30 | NURSING ---
Pt just finished ambulating in halls, currently using IS
[2020-03-19 02:29] VITALS: BP 139/85; PULSE 70; RESP 17; TEMP 37; O2SAT 96
[2020-03-19] MEDS: Morphine 4 MG/ML Syringe IV ×3 (02:34→21:26)
[2020-03-19] MEDS: Acetaminophen 325 MG Tablet 650 MG PO ×4 (02:34→21:26)
[2020-03-19] MEDS: 0.9% Normal Saline 1,000 ML 125 ML IV (03:58)
[2020-03-19 06:20] LABS: Absolute Lymphocyte Count 1.13 X10^3/uL (0.83-4.51); Basophil# 0.01 X10^3/uL; Basophil% 0.1 % (0-1); Eosinophil# 0.12 X10^3/uL; Eosinophils% 1.3 % (0-5); Hematocrit 38.4 % (37-47); Hemoglobin 12.3 g/dL (12.0-15.0); Lymphocyte # 1.13 X10^3/ul (4.0); Lymphocyte % 12.7 % (19-41); Mean Corpuscular Hgb 31.9 pg (27.0-32.0); Mean Corpuscular Volume 99.5 fL (81-99); Mean Platelet Vol. 11.3 fl (6.2-12.0); Monocyte# 0.62 X10^3/uL; NRBC Flagged by Analyzer 0 % (0-5); Neutrophil # 6.99 X10^3/uL (2.7-7.7); Neutrophil % 78.7 % (47-70); Platelet Count 201 K/mm3 (150-450); RBC Distribution Width CV 13.9 % (11.6-14.6); RBC Distribution Width SD 50.7 fl (35.1-43.9); Red Blood Count 3.86 M/mm3 (4.2-5.4); White Blood Count 8.9 K/mm3 (4.4-11.0)
[2020-03-19 06:54] LABS: Anion Gap 6 (5-15); BUN 18 mg/dL (7-18); BUN/Creat Ratio 36.8 RATIO (10-20); Calcium,Total 8.1 mg/dL (8.5-10.1); Chloride 110 mmol/L (98-107); Creatinine, Serum 0.49 mg/dL (0.55-1.02); EST Glomerular Filtration Rate 136 mL/min (>60); Est Glom Filt Rate - Afr Amer 165 mL/min (>60); Estimated Creatinine Clearance 98.47 ml/min; Glucose 90 mg/dL (74-106); Potassium 3.3 mmol/L (3.5-5.1); Sodium Level 140 mmol/L (136-145)
[2020-03-19 08:29] VITALS: BP 142/75; PULSE 79; RESP 18; TEMP 36.8; O2SAT 97
[2020-03-19] MEDS: Enoxaparin 40 MG/0.4 ML Syringe SC (09:20)
--- NOTE | 2020-03-19 09:21 | PN_ITS ---
Patient Problems: Active and Suspected Problems (Last Updated 03/15/20 @ 11:[address] Dani Wiseman, DO) Small bowel obstruction due to adhesions (Acute) Renal cyst, right (Acute) Small bowel obstruction (Acute) Reason for Visit: SBO Subjective: Feeling better. + Flatus. Tolerating clears. Vitals/I&O's: Vital Signs Temp Pulse Resp BP Pulse Ox 36.8 C 79 18 142/75 H 97 03/19/20 08:29 03/19/20 08:29 03/19/20 08:29 03/19/20 08:29 03/19/20 08:29 Oxygen Flow Rate (L/min) 2 Oxygen Delivery Method Room Air Weight: 103.3 kg Body Mass Index (BMI) 40.3 Intake and Output for Last 24 Hours 03/17/20 03/18/20 03/19/20 23:59 23:59 23:59 Intake Total 3764.75 / 3764.75 3100 / 3100 1675 / 1675 Output Total 2440 / 3490 1300 / 1300 Balance 1324.75 / 274.75 1800 / 1800 1675 / 1675 General: Alert, No apparent distress HEENT: Atraumatic, Normocephalic Oral: Moist Mucosa, No Gingival or Mucosal Lesions/ Ulcerations Neck: No Nodes, Thyroid Normal Size and Texture Lungs: Clear to auscultation, Normal air movement, No rhonchi, No wheeze Cardiovascular: Regular rate, Regular Rhythm, Normal S1, Normal S2 Abdomen: Bowel Sounds Present, Non Tender, Non-Distended Extremities: No edema, No Calf Tenderness Skin: No rashes, No breakdown Psych/Mental Status: Normal Affect, Appropriate Laboratory Results 03/19/20 05:54: WBC 8.9, RBC 3.86 L, Hgb 12.3, Hct 38.4, MCV 99.5 H, MCH 31.9, MCHC 32.0, RDW Std Deviation 50.7 H, RDW Coeff of Cheryl 13.9, Plt Count 201, MPV 11.3, Immature Gran % (Auto) 0.200, Neut % (Auto) 78.7 H, Lymph % (Auto) 12.7 L, Craig % (Auto) 7.0, Eos % (Auto) 1.3, Baso % (Auto) 0.1, Absolute Neuts (auto) 7.0, Absolute Lymphs (auto) 1.13, Nucleated RBC % 0 03/19/20 05:54: Sodium 140, Potassium 3.3 L, Chloride 110 H, Carbon Dioxide 24.0, Anion Gap 6, BUN 18, Creatinine 0.49 L, Estim Creat Clear Calc 98.47, Est GFR (MDRD) Af Amer 165, Est GFR (MDRD) Non-Af 136, BUN/Creatinine Ratio 36.8 H, Glucose 90, Calcium 8.1 L Current Medications Acetaminophen (Tylenol) 650 mg PO Q4H PRN PRN PRN Reason: Pain Score 1-10/10 Last Admin: 03/19/20 02:34 Dose: 650 mg Documented by: Dextrose (D50w Syringe) 0 gm IV X1 PRN; Protocol PRN Reason: Hypoglycemia Enoxaparin Sodium (Lovenox) 40 mg SC DAILY [facility] Last Admin: 03/18/20 12:02 Dose: 40 mg Documented by: Glucagon () 1 mg IM .X1 PRN PRN Reason: Hypoglycemia Sodium Chloride () 1,000 mls @ 125 mls/hr IV .Q8H [facility] Last Admin: 03/19/20 03:58 Dose: 125 mls/hr Documented by: Sodium Chloride () 250 mls @ 15 mls/hr IV .[id number] PRN PRN Reason: Saline Flush Morphine Sulfate () 4 mg IV Q3H PRN PRN PRN Reason: Pain Score 6-10/10 Last Admin: 03/19/20 02:34 Dose: 4 mg Documented by: Ondansetron HCl (Zofran) 4 mg IV Q8H PRN PRN PRN Reason: NAUSEA/VOMITING Last Admin: 03/17/20 04:27 Dose: 4 mg Documented by: Sodium Chloride () 10 - 40 ml IV UD PRN PRN Reason: SALINE FLUSH Last Admin: 03/18/20 12:00 Dose: 10 ml Documented by: STROKE Vital Signs/Narrative: Vital Signs Temp Pulse Resp BP Pulse Ox 03/19/20 08:29 36.8 C 79 18 142/75 H 97 Medical Necessity - Tobacco Use Smoking Status: Light Smoker (<10/day) Tobacco Use: Cigarettes Assessment/Plan All Active Problems (Last Updated 03/15/20 @ 11:[address] Dani Wiseman, DO) Small bowel obstruction due to adhesions (Acute) Renal cyst, right (Acute) Small bowel obstruction (Acute) 1. SBO: * improving * s/p Ex lap with takedown of adhesion and repair of ventral hernia on 03/17 * NG d/c'd 03/18 * mgmt per general surgery * tolerating clears * pain control 2. HTN * stable home medications held * monitor 3. VTE prophylaxis: mod risk. LMWH 4. Advanced care planning: DNRCCA Inpatient E&M: 26314 Subs Hosp L2
--- NOTE | 2020-03-19 10:14 | NURSING ---
Walking in [place] at this time.
[2020-03-19] MEDS: buPROPion 100 MG Tablet PO (12:11)
[2020-03-19] MEDS: FLUoxetine 20 MG Capsule 40 MG PO (12:11)
[2020-03-19] MEDS: hydroCHLOROthiazide 12.5mg 12.5 MG PO (12:12)
[2020-03-19] MEDS: Losartan Potassium 100 MG Tablet PO (12:12)
--- NOTE | 2020-03-19 12:52 | PN.SURG_ITS ---
Patient Problems: Active and Suspected Problems (Last Updated 03/15/20 @ 11:[address] Dani Wiseman, DO) Small bowel obstruction due to adhesions (Acute) Renal cyst, right (Acute) Small bowel obstruction (Acute) Subjective: Tolerating liquids without difficulty. No nausea or vomiting. She is only is experiencing flatus. Objective: Abdomen is soft appropriately tender. - Physical Exam Vitals/I&O's: Vital Signs Temp Pulse Resp BP Pulse Ox 98.2 F 79 18 142/75 H 97 03/19/20 08:29 03/19/20 08:29 03/19/20 08:29 03/19/20 08:29 03/19/20 08:29 Oxygen Flow Rate (L/min) 2 Oxygen Delivery Method Room Air Weight: 227 lb 11.8 oz Body Mass Index (BMI) 40.3 Intake and Output for Last 24 Hours 03/17/20 03/18/20 03/19/20 23:59 23:59 23:59 Intake Total 3764.75 / 3764.75 3100 / 3100 3035 / 3035 Output Total 2440 / 3490 1300 / 1300 Balance 1324.75 / 274.75 1800 / 1800 3035 / 3035 Laboratory Results 03/19/20 05:54: WBC 8.9, RBC 3.86 L, Hgb 12.3, Hct 38.4, MCV 99.5 H, MCH 31.9, MCHC 32.0, RDW Std Deviation 50.7 H, RDW Coeff of Cheryl 13.9, Plt Count 201, MPV 11.3, Immature Gran % (Auto) 0.200, Neut % (Auto) 78.7 H, Lymph % (Auto) 12.7 L, Titus % (Auto) 7.0, Eos % (Auto) 1.3, Baso % (Auto) 0.1, Absolute Neuts (auto) 7.0, Absolute Lymphs (auto) 1.13, Nucleated RBC % 0 03/19/20 05:54: Sodium 140, Potassium 3.3 L, Chloride 110 H, Carbon Dioxide 24.0, Anion Gap 6, BUN 18, Creatinine 0.49 L, Estim Creat Clear Calc 98.47, Est GFR (MDRD) Af Amer 165, Est GFR (MDRD) Non-Af 136, BUN/Creatinine Ratio 36.8 H, Glucose 90, Calcium 8.1 L Current Medications Acetaminophen (Tylenol) 650 mg PO Q4H PRN PRN PRN Reason: Pain Score 1-10/10 Last Admin: 03/19/20 09:23 Dose: 650 mg Documented by: Bupropion HCl (Wellbutrin Tablets) 100 mg PO DAILY [facility] Last Admin: 03/19/20 12:11 Dose: 100 mg Documented by: Dextrose (D50w Syringe) 0 gm IV X1 PRN; Protocol PRN Reason: Hypoglycemia Enoxaparin Sodium (Lovenox) 40 mg SC DAILY [facility] Last Admin: 03/19/20 09:20 Dose: 40 mg Documented by: Fluoxetine HCl (Prozac) 40 mg PO DAILY [facility] Last Admin: 03/19/20 12:11 Dose: 40 mg Documented by: Glucagon () 1 mg IM .X1 PRN PRN Reason: Hypoglycemia Hydrochlorothiazide () 12.5 mg PO DAILY [facility] Last Admin: 03/19/20 12:12 Dose: 12.5 mg Documented by: Sodium Chloride () 250 mls @ 15 mls/hr IV .[id number] PRN PRN Reason: Saline Flush Losartan Potassium (Cozaar) 100 mg PO DAILY [facility] Last Admin: 03/19/20 12:12 Dose: 100 mg Documented by: Morphine Sulfate () 4 mg IV Q3H PRN PRN PRN Reason: Pain Score 6-10/10 Last Admin: 03/19/20 02:34 Dose: 4 mg Documented by: Ondansetron HCl (Zofran) 4 mg IV Q8H PRN PRN PRN Reason: NAUSEA/VOMITING Last Admin: 03/17/20 04:27 Dose: 4 mg Documented by: Sodium Chloride () 10 - 40 ml IV UD PRN PRN Reason: SALINE FLUSH Last Admin: 03/18/20 12:00 Dose: 10 ml Documented by: Medical Necessity - Tobacco Use Smoking Status: Light Smoker (<10/day) Tobacco Use: Cigarettes Assessment/Plan All Active Problems (Last Updated 03/15/20 @ 11:[address] Dani Wiseman, DO) Small bowel obstruction due to adhesions (Acute) Renal cyst, right (Acute) Small bowel obstruction (Acute) We will need to stay on liquids. Await bowel function. Hopefully home tomorrow.
[2020-03-19] MEDS: 0.9% Saline Lock 10 ML Syringe IV ×2 (17:18→21:26)
[2020-03-19 17:44] VITALS: BP 142/85; PULSE 78; RESP 20; TEMP 36.9; O2SAT 96
[2020-03-19 21:17] VITALS: BP 150/89; PULSE 90; RESP 18; TEMP 36.6; O2SAT 97
[2020-03-20 03:02] VITALS: BP 153/98; PULSE 76; RESP 18; TEMP 37; O2SAT 97
[2020-03-20] MEDS: Acetaminophen 325 MG Tablet 650 MG PO (03:07)
[2020-03-20] MEDS: 0.9% Saline Lock 10 ML Syringe IV (03:07)
[2020-03-20] MEDS: Morphine 4 MG/ML Syringe IV (03:07)
--- NOTE | 2020-03-20 07:54 | PCM.PN.SRG ---
Patient Problems: Active and Suspected Problems (Last Updated 03/15/20 @ 11:[address] Dani Wiseman, DO) Small bowel obstruction due to adhesions (Acute) Renal cyst, right (Acute) Small bowel obstruction (Acute) Subjective: Patient is passing flatus and having minimal abdominal pain. No nausea or vomiting. Patient had a bowel movement overnight. Patient is tolerating clear liquids. - Physical Exam Vitals/I&O's: Vital Signs Temp Pulse Resp BP Pulse Ox 98.6 F 76 18 153/98 H 97 03/20/20 03:02 03/20/20 03:02 03/20/20 03:02 03/20/20 03:02 03/20/20 03:02 Oxygen Flow Rate (L/min) 2 Oxygen Delivery Method Room Air Weight: 227 lb 11.8 oz Body Mass Index (BMI) 40.3 Intake and Output for Last 24 Hours 03/18/20 03/19/20 03/20/20 23:59 23:59 23:59 Intake Total 3100 / 3100 3395 / 3935 740 / 740 Output Total 1300 / 1300 Balance 1800 / 1800 3395 / 3935 740 / 740 General: Alert, Oriented x3 Lungs: Normal air movement Abdomen: Soft, Non-Distended Current Medications Acetaminophen (Tylenol) 650 mg PO Q4H PRN PRN PRN Reason: Pain Score 1-10/10 Last Admin: 03/20/20 03:07 Dose: 650 mg Documented by: Bupropion HCl (Wellbutrin Tablets) 100 mg PO DAILY [facility] Last Admin: 03/19/20 12:11 Dose: 100 mg Documented by: Dextrose (D50w Syringe) 0 gm IV X1 PRN; Protocol PRN Reason: Hypoglycemia Docusate Sodium (Colace) 100 mg PO BID [facility] Enoxaparin Sodium (Lovenox) 40 mg SC DAILY [facility] Last Admin: 03/19/20 09:20 Dose: 40 mg Documented by: Fluoxetine HCl (Prozac) 40 mg PO DAILY [facility] Last Admin: 03/19/20 12:11 Dose: 40 mg Documented by: Glucagon () 1 mg IM .X1 PRN PRN Reason: Hypoglycemia Hydrochlorothiazide () 12.5 mg PO DAILY [facility] Last Admin: 03/19/20 12:12 Dose: 12.5 mg Documented by: Sodium Chloride () 250 mls @ 15 mls/hr IV .[id number] PRN PRN Reason: Saline Flush Losartan Potassium (Cozaar) 100 mg PO DAILY [facility] Last Admin: 03/19/20 12:12 Dose: 100 mg Documented by: Morphine Sulfate () 4 mg IV Q3H PRN PRN PRN Reason: Pain Score 6-10/10 Last Admin: 03/20/20 03:07 Dose: 4 mg Documented by: Ondansetron HCl (Zofran) 4 mg IV Q8H PRN PRN PRN Reason: NAUSEA/VOMITING Last Admin: 03/17/20 04:27 Dose: 4 mg Documented by: Oxycodone HCl (Oxyir) 5 - 10 mg PO Q4H PRN PRN PRN Reason: Pain Score 4-10/10 Sodium Chloride () 10 - 40 ml IV UD PRN PRN Reason: SALINE FLUSH Last Admin: 03/20/20 03:07 Dose: 10 ml Documented by: Medical Necessity - Tobacco Use Smoking Status: Light Smoker (<10/day) Tobacco Use: Cigarettes Assessment/Plan All Active Problems (Last Updated 03/15/20 @ 11:[address] Dani Wiseman, DO) Small bowel obstruction due to adhesions (Acute) Renal cyst, right (Acute) Small bowel obstruction (Acute) 60-year-old female status post ventral hernia with small bowel obstruction resolution 1. Patient is doing well today. She had a bowel movement and she is passing flatus. She is tolerating clears. I will advance her to a regular diet and start some oral pain medication with some Colace. If she tolerates oral pain medication and continues to have bowel function and tolerates regular diet she may be discharged home and follow-up with me in 1 week for staple removal. I advised that she can probably return to work after seeing me in the office. No heavy lifting over 20 pounds for 4 weeks. Okay to shower. Virgilio Waite MD Pager: [facility] [address] [place] [address], [address] [place] [address] Office:
--- NOTE | 2020-03-20 08:01 | DS.PCM_ITS ---
Discharge Date and Diagnosis - Problem List Patient Problems: Active and Suspected Problems (Last Updated 03/15/20 @ 11:[address] Dani Wiseman DO) Small bowel obstruction due to adhesions (Acute) Renal cyst, right (Acute) Small bowel obstruction (Acute) Date of Admission: 03/15/20 Date of Discharge: 03/20/20 - Primary Discharge Diagnosis Acute Problems: Active Problems (Last Updated 03/15/20 @ 11:[address] Dani Wiseman DO) Small bowel obstruction due to adhesions (Acute) Renal cyst, right (Acute) Small bowel obstruction (Acute) - Secondary Discharge Diagnosis Chronic Problems: Chronic Problems (Last Updated 03/15/20 @ 11:[address] Dani Wiseman DO) Skin ulcer of abdominal wall with fat layer exposed (Chronic) Skin ulcer of groin (Chronic) Recurrent. Hidradenitis suppurativa (Chronic) Hospital Course and Treatment Imaging Results: Clinical Impression(s) from Imaging Studies Abdomen/Pelvis CT 03/15/20 05:45 IMPRESSION: Mid small bowel obstruction. 1.7 cm solid nodule or complex cyst right kidney. Left renal cyst. These findings can be correlated with renal ultrasound. Left-sided diverticulosis. 1.6 cm left adrenal adenoma which is usually an incidental finding. Additional nonemergent findings as above. Electronically Signed: Alvaro Groves MD at 6:40 EDT , Service support , KUB X-Ray 03/15/20 06:12 IMPRESSION: No acute findings NG tube tip in the distal stomach Electronically Signed: Riley Quiñones MD at 7:37 EDT , Service support , KUB X-Ray 03/16/20 12:20 IMPRESSION: No acute findings Electronically Signed: Riley Quiñones MD at 12:38 EDT , Service support , KUB X-Ray 03/16/20 15:50 IMPRESSION: Enteric tube tip in the stomach. However, the side-port is at the GE junction. This could be advanced 5-10 cm for improved positioning. Electronically Signed: Kevan Lundberg, at 16:52 EDT Tel , Service support , Small Bowel X-Ray 03/17/20 08:15 IMPRESSION: Incomplete abnormal small bowel follow-through study. The visualized small bowel loops are borderline distended and I suspect there is nonrotation of the duodenum as the contrast within the duodenum does not cross the midline. Normal appearing stomach No extravasation of contrast outside the lumen of the intestines Electronically Signed: Riley Quiñones MD at 11:52 EDT , Service support , Operations: herniorrhaphy Summary of Care Provided: The patient is a 60 year old F admitted with small bowel obstruction 1. Small bowel obstruction -patient underwent exploratory laparotomy with takedown of adhesion and repair of ventral hernia on 03/17 2. Hypertension - Blood pressure controlled, home medications continued with dose adjustment as needed 3. Morbid obesity with BMI of 40 ?Weight loss advised 4. DVT prophylaxis - On enoxaparin Patient Problems: Active and Suspected Problems (Last Updated 03/15/20 @ 11:[address] Dani Wiseman, DO) Small bowel obstruction due to adhesions (Acute) Renal cyst, right (Acute) Small bowel obstruction (Acute) - Physical Exam Vitals/I&O's: Vital Signs Temp Pulse Resp BP Pulse Ox 98.6 F 76 18 153/98 H 97 03/20/20 03:02 03/20/20 03:02 03/20/20 03:02 03/20/20 03:02 03/20/20 03:02 Oxygen Flow Rate (L/min) 2 Oxygen Delivery Method Room Air Weight: 103.3 kg Body Mass Index (BMI) 40.3 Intake and Output for Last 24 Hours 03/18/20 03/19/20 03/20/20 23:59 23:59 23:59 Intake Total 3100 / 3100 3395 / 3935 740 / 740 Output Total 1300 / 1300 Balance 1800 / 1800 3395 / 3935 740 / 740 General: Alert HEENT: Atraumatic Oral: Moist Mucosa Lungs: Diminished Cardiovascular: Regular rate, Regular Rhythm Psych/Mental Status: Normal Affect Current Medications Acetaminophen (Tylenol) 650 mg PO Q4H PRN PRN PRN Reason: Pain Score 1-10/10 Last Admin: 03/20/20 03:07 Dose: 650 mg Documented by: Bupropion HCl (Wellbutrin Tablets) 100 mg PO DAILY [facility] Last Admin: 03/19/20 12:11 Dose: 100 mg Documented by: Dextrose (D50w Syringe) 0 gm IV X1 PRN; Protocol PRN Reason: Hypoglycemia Docusate Sodium (Colace) 100 mg PO BID [facility] Enoxaparin Sodium (Lovenox) 40 mg SC DAILY [facility] Last Admin: 03/19/20 09:20 Dose: 40 mg Documented by: Fluoxetine HCl (Prozac) 40 mg PO DAILY [facility] Last Admin: 03/19/20 12:11 Dose: 40 mg Documented by: Glucagon () 1 mg IM .X1 PRN PRN Reason: Hypoglycemia Hydrochlorothiazide () 12.5 mg PO DAILY [facility] Last Admin: 03/19/20 12:12 Dose: 12.5 mg Documented by: Sodium Chloride () 250 mls @ 15 mls/hr IV .[id number] PRN PRN Reason: Saline Flush Losartan Potassium (Cozaar) 100 mg PO DAILY [facility] Last Admin: 03/19/20 12:12 Dose: 100 mg Documented by: Morphine Sulfate () 4 mg IV Q3H PRN PRN PRN Reason: Pain Score 6-10/10 Last Admin: 03/20/20 03:07 Dose: 4 mg Documented by: Ondansetron HCl (Zofran) 4 mg IV Q8H PRN PRN PRN Reason: NAUSEA/VOMITING Last Admin: 03/17/20 04:27 Dose: 4 mg Documented by: Oxycodone HCl (Oxyir) 5 - 10 mg PO Q4H PRN PRN PRN Reason: Pain Score 4-10/10 Sodium Chloride () 10 - 40 ml IV UD PRN PRN Reason: SALINE FLUSH Last Admin: 03/20/20 03:07 Dose: 10 ml Documented by: Discharge Diet: Soft diet Discharge Activity: Return to Normal Activity, May not drive while taking narcotic pain medications. Home Medications: Medications to take at Discharge Meloxicam [Mobic] 15 mg PO DAILY 01/27/16 Smz/Tmp Ds [Bactrim Ds] 800 mg PO DAILY 01/27/16 buPROPion tablets [Wellbutrin tablets] 100 mg PO DAILY 01/27/16 Fluoxetine 40 mg PO DAILY 11/19/18 Valsartan/Hydrochlorothiazide [Valsartan-Hctz 320-12.5 mg Tab] 1 tab PO DAILY 03/15/20 Acetaminophen [Tylenol Tablet] 650 mg PO Q4H PRN PRN tablet 03/20/20 Docusate Sodium [Colace] 100 mg PO BID #30 cap 03/20/20 Oxycodone HCl/Acetaminophen [Oxycodon-Acetaminophen 7.5-325] 1 each PO Q6H PRN 5 Days #20 tablet 03/20/20 Following Prescrptions Were Given to Patient: Docusate Sodium [Colace] 100 mg PO BID #30 cap Transmission Status: Pending to [id number] Oxycodone HCl/Acetaminophen [Oxycodon-Acetaminophen 7.5-325] 1 each PO Q6H PRN 5 Days #20 tablet PRN Reason: Pain Transmission Status: Received by [id number] Primary Care Physician: Jabier Gurrola MD [Primary Care Provider] - Disposition: Home Minutes spent on discharge:: 35 Patient Condition:: Stable Medical Necessity - Tobacco Use Smoking Status: Light Smoker (<10/day) Tobacco Use: Cigarettes Meaningful Use Info Meaningful Use Diagnoses (Choose all that apply): None applicable Inpatient E&M: 20518 Disch Hosp
[2020-03-20 09:00] VITALS: BP 132/91; PULSE 74; RESP 18; TEMP 36.9; O2SAT 97
[2020-03-20] MEDS: buPROPion 100 MG Tablet PO (09:36)
[2020-03-20] MEDS: hydroCHLOROthiazide 12.5mg 12.5 MG PO (09:36)
[2020-03-20] MEDS: Enoxaparin 40 MG/0.4 ML Syringe SC (09:36)
[2020-03-20] MEDS: FLUoxetine 20 MG Capsule 40 MG PO (09:36)
[2020-03-20] MEDS: Losartan Potassium 100 MG Tablet PO (09:36)
[2020-03-20] MEDS: Docusate Sodium 100 MG Capsule PO (09:38)
--- NOTE | 2020-03-20 10:33 | DCINST_ITS ---
- Discharge Diagnoses Current Active Problems: Current Active and Chronic Problems (Last Updated 03/15/20 @ 11:[address] Dani Wiseman, DO) Small bowel obstruction due to adhesions (Acute) Renal cyst, right (Acute) Small bowel obstruction (Acute) You will use the following diet at home:: Regular Your food should be the consistency of: Mechanical soft (ground) Discharge Activity: Return to Normal Activity, May not drive while taking narcotic pain medications. Return to work on:: 04/03/20 - To return to work after patient is seen by Dr. Waite Call your doctor if you observe: Fever of 101 or Higher, Coldness, Increased Pain, Inability to have a bowel movement, Uncontrolled pain Allergies/Adverse Reactions: Allergies GÓMEZ Inhibitors Allergy (Verified 03/15/20 08:02) cough cough Penicillins [PCN] Allergy (Verified 03/15/20 08:02) long time ago -rash Medications to take at Discharge Meloxicam [Mobic] 15 mg PO DAILY 01/27/16 Smz/Tmp Ds [Bactrim Ds] 800 mg PO DAILY 01/27/16 buPROPion tablets [Wellbutrin tablets] 100 mg PO DAILY 01/27/16 Fluoxetine 40 mg PO DAILY 11/19/18 Valsartan/Hydrochlorothiazide [Valsartan-Hctz 320-12.5 mg Tab] 1 tab PO DAILY 03/15/20 Acetaminophen [Tylenol Tablet] 650 mg PO Q4H PRN PRN tablet 03/20/20 Docusate Sodium [Colace] 100 mg PO BID #30 cap 03/20/20 Oxycodone HCl/Acetaminophen [Oxycodon-Acetaminophen 7.5-325] 1 each PO Q6H PRN 5 Days #20 tablet 03/20/20 The following prescriptions were given: Docusate Sodium [Colace] 100 mg PO BID #30 cap Transmission Status: Pending to [id number] Oxycodone HCl/Acetaminophen [Oxycodon-Acetaminophen 7.5-325] 1 each PO Q6H PRN 5 Days #20 tablet PRN Reason: Pain Transmission Status: Received by [id number] Primary Care Physician: Jabier Gurrola MD [Primary Care Provider] - Please follow up with your Primary Care Physician in: In 1 to 2 weeks Test Results: Test results from this visit will be discussed in further detail at your follow- up appointment, if applicable. Please Follow Up With: Virgilio Waite MD When: A week Proposed Discharge Date: 03/20/20
[2020-03-20] MEDS: oxyCODONE 5 MG Tablet PO (11:22)
== END 2020-03-20 13:50 | disposition home or self-care (01) | DRG 354 ==
LOC: ED 06:41 → MS3 08:37
PROVIDERS: Surgery; Emergency Provider Emergency Medicine; PCP Family Medicine; Visit Provider Internal Medicine
PROC: 0WQF0ZZ Repair Abdominal Wall, Open Approach (ICD-10-PCS; CPT 44202; principal; 2020-03-17 12:40)
DX: K56.50 Intestinal adhesions [bands], unspecified as to partial versus complete obstruction (principal); K43.6 Other and unspecified ventral hernia with obstruction, without gangrene; Z68.41 Body mass index [BMI] 40.0-44.9, adult; Z53.31 Laparoscopic surgical procedure converted to open procedure; N28.1 Cyst of kidney, acquired; L73.2 Hidradenitis suppurativa; L98.492 Non-pressure chronic ulcer of skin of other sites with fat layer exposed; L98.499 Non-pressure chronic ulcer of skin of other sites with unspecified severity; I10 Essential (primary) hypertension; F32.9 Major depressive disorder, single episode, unspecified; M19.90 Unspecified osteoarthritis, unspecified site; E66.01 Morbid (severe) obesity due to excess calories; F17.210 Nicotine dependence, cigarettes, uncomplicated; Z90.49 Acquired absence of other specified parts of digestive tract; Z66 Do not resuscitate
CPT/HCPCS: 36415; 74018; 74176; 74250; 80048; 80053; 85025; 93005; 94640; 99285; 99406; J7030; A4216; J2405

== ENCOUNTER → 2020-05-05 15:38 | Outpatient (CLI) | payer OTHER, SELFPAY ==
[2020-03-17 11:43] VITALS: BMI 40.3
--- NOTE | 2020-05-05 15:40 | BI_ITS ---
MAMMOGRAPHY - BILATERAL SCREENING 3-D TOMOSYNTHESIS REASON FOR EXAM: Female, 60 years old. NO FM HX , RT IMF SEBACEOUS CYST OFF AND ON -NOTHING NOW PERTINENT HISTORY: No significant family history. TECHNIQUE: 2-D mammograms and 3-D Tomosynthesis of the breast (s) were performed. CAD was performed. COMPARISON: 04/12/2019 FINDINGS: The breast composition is composed of scattered fibroglandular density. Scattered benign calcifications are seen. No dense spiculated masses or suspicious microcalcifications are identified. No architectural distortion is identified. There is no skin thickening or retraction. There has been no significant change since the prior study. Stable dilated serpiginous vessels in the left breast. BI/SCREEN MAMM (CAD) W/JOSE ENRIQUE BILAT IMPRESSION: No mammographic signs of malignancy. Routine yearly mammograms recommended. ASSESSMENT CATEGORY: BIRADS Category 2: Benign. A letter regarding these results will be sent to the patient by the facility within 30 days. FOLLOW UP RECOMMENDATION: Yearly follow up mammogram recommended. (A) Approximately 10% of breast cancers are not detected by mammography. A normal mammogram should not delay biopsy of a clinically suspicious abnormality. Electronically Signed: Riley Quiñones MD at 11:11 EDT , Service support ,
== END ==
PROVIDERS: PCP Family Medicine; Referring Provider Family Medicine; Visit Provider Family Medicine
DX: Z12.31 Encounter for screening mammogram for malignant neoplasm of breast (principal)
CPT/HCPCS: 77063; 77067

== ENCOUNTER → 2020-07-14 08:57 | Outpatient (CLI) | payer OTHER, SELFPAY ==
[2020-03-17 11:43] VITALS: BMI 40.3
[2020-07-14 09:24] LABS: Absolute Lymphocyte Count 2.59 X10^3/uL (0.83-4.51); Basophil# 0.04 X10^3/uL; Basophil% 0.4 % (0-1); Color, Urine Yellow (Yellow); Eosinophil# 0.17 X10^3/uL; Eosinophils% 1.8 % (0-5); Glucose, Dipstick Normal (Normal); Hematocrit 43.8 % (37-47); Hemoglobin 13.9 g/dL (12.0-15.0); Ketone-Dipstick 5 mg/dl (Negative); Leukocyte Esterase-Dipstick 25 /ul (Negative); Lymphocyte # 2.59 X10^3/ul (4.0); Mean Corp Hgb Conc 31.7 g/dL (32-36); Mean Corpuscular Hgb 30.8 pg (27.0-32.0); Mean Corpuscular Volume 97.1 fL (81-99); Mean Platelet Vol. 10.7 fl (6.2-12.0); Monocyte# 0.46 X10^3/uL; NRBC Flagged by Analyzer 0 % (0-5); Neutrophil # 5.98 X10^3/uL (2.7-7.7); Neutrophil % 64.6 % (47-70); Nitrite-Dipstick Negative (Negative); Occult Blood-Urine 25 /ul (Negative); Platelet Count 300 K/mm3 (150-450); Protein-Dipstick 30 mg/dl (Negative); RBC Distribution Width CV 14.6 % (11.6-14.6); Red Blood Count 4.51 M/mm3 (4.2-5.4); Specific Gravity, Urine 1.025 (1.002-1.030); Urine Bilirubin Dipstick Negative (Negative); Urine Clarity Sl. Cloudy (Clear); Urine Urobilinogen Normal (Normal); White Blood Count 9.3 K/mm3 (4.4-11.0)
[2020-07-14 09:51] LABS: AST(SGOT) 17 U/L (15-37); Alanine Aminotransfer ALT/SGPT 30 U/L (13-56); Albumin, Serum 3.8 g/dL (3.2-5.0); Alkaline Phosphatase 86 U/L (45-117); Anion Gap 4 (5-15); BUN 22 mg/dL (7-18); BUN/Creat Ratio 23.5 RATIO (10-20); Calcium,Total 8.9 mg/dL (8.5-10.1); Chloride 107 mmol/L (98-107); Cholesterol 195 mg/dL (200); Creatinine, Serum 0.94 mg/dL (0.55-1.02); EST Glomerular Filtration Rate 64 mL/min (>60); Est Glom Filt Rate - Afr Amer 78 mL/min (>60); Globulin 3.7 g/dL (2.2-4.2); Glucose 92 mg/dL (74-106); High Density Lipoprotein 72 mg/dL; Potassium 4.5 mmol/L (3.5-5.1); Protein, Total 7.5 g/dL (6.4-8.2); Sodium Level 137 mmol/L (136-145); Triglycerides 111 mg/dL; Very Low Density Lipoprotein 22 mg/dL (5-40)
== END ==
PROVIDERS: PCP Family Medicine; Referring Provider Family Medicine; Visit Provider Family Medicine
DX: Z00.00 Encounter for general adult medical examination without abnormal findings (principal); I10 Essential (primary) hypertension
CPT/HCPCS: 80053; 80061; 81002; 85025

== ENCOUNTER → 2021-05-16 15:05 | Outpatient (CLI) | payer OTHER, SELFPAY ==
[2020-03-17 11:43] VITALS: BMI 40.3
--- NOTE | 2021-05-16 15:06 | BI_ITS ---
MAMMOGRAPHY - BILATERAL SCREENING REASON FOR EXAM: Female, 61 years old. Routine annual screening examination. PERTINENT HISTORY: Non-contributory. TECHNIQUE: Digital bilateral breast jose enrique (3D mammographic acquisition) in the CC and MLO projections. 2-D mediolateral oblique (MLO) and craniocaudad (CC) views of both breasts were obtained. CAD: Full Field Digital Mammography with Computer Added Detection was performed. COMPARISON: Comparison is made with prior examination 05/05/2020 and 04/12/2019. FINDINGS: Breast Composition: There are scattered areas of fibroglandular density. There are no dominant masses or suspicious calcifications. Once again, there is prominence of venous structures in the left breast. This is unchanged. No other significant abnormalities are identified. There has been no significant change since the prior study. BI/SCRN MAMM (CAD)W/JOSE ENRIQUE BILAT IMPRESSION: Stable bilateral screening mammogram. Yearly follow-up mammogram recommended. (A) ASSESSMENT CATEGORY: BIRADS Category 2: Benign. A letter regarding these results will be sent to the patient by the facility within 30 days. Approximately 10% of breast cancers are not detected by mammography. A normal mammogram should not delay biopsy of a clinically suspicious abnormality. [id number] Electronically Signed: Sean Philip MD at 8:13 EDT , Service support ,
== END ==
PROVIDERS: PCP Family Medicine; Referring Provider Family Medicine; Visit Provider Family Medicine
DX: Z12.31 Encounter for screening mammogram for malignant neoplasm of breast (principal)
CPT/HCPCS: 77063; 77067

== ENCOUNTER → 2021-06-25 14:27 | Outpatient (CLI) | payer OTHER, SELFPAY ==
[2021-06-25 15:02] LABS: Absolute Lymphocyte Count 2.66 X10^3/uL (0.83-4.51); Absolute Neutrophil Count 6.8 X10^3/uL (2.0-7.7); Basophil# 0.06 X10^3/uL; Basophil% 0.6 % (0-1); Eosinophil# 0.15 X10^3/uL; Eosinophils% 1.5 % (0-5); Hematocrit 44.1 % (37-47); Hemoglobin 14.6 g/dL (12.0-15.0); Lymphocyte # 2.66 X10^3/ul (0.83-4.51); Lymphocyte % 26.2 % (19-41); Mean Corp Hgb Conc 33.1 g/dL (32-36); Mean Corpuscular Hgb 31.3 pg (27.0-32.0); Mean Corpuscular Volume 94.6 fL (81-99); Mean Platelet Vol. 10.9 fl (6.2-12.0); Monocyte# 0.52 X10^3/uL; Monocyte% 5.1 % (0-10); NRBC Flagged by Analyzer 0 % (0-5); Neutrophil # 6.76 X10^3/uL (2.7-7.7); Neutrophil % 66.4 % (47-70); Platelet Count 303 K/mm3 (150-450); RBC Distribution Width CV 14.2 % (11.6-14.6); RBC Distribution Width SD 49.1 fl (35.1-43.9); Red Blood Count 4.66 M/mm3 (4.2-5.4); White Blood Count 10.2 K/mm3 (4.4-11.0)
[2021-06-25 15:30] LABS: ALB/GLOB Ratio 0.9 RATIO (0.9-2.4); AST(SGOT) 23 U/L (15-37); Alanine Aminotransfer ALT/SGPT 35 U/L (13-56); Albumin, Serum 3.7 g/dL (3.2-5.0); Alkaline Phosphatase 84 U/L (45-117); Anion Gap 8 (5-15); BUN 17 mg/dL (7-18); BUN/Creat Ratio 18.8 RATIO (10-20); Calcium,Total 9.1 mg/dL (8.5-10.1); Chloride 106 mmol/L (98-107); Cholesterol 215 mg/dL (200); EST Glomerular Filtration Rate 67 mL/min (>60); Est Glom Filt Rate - Afr Amer 81 mL/min (>60); Globulin 4.2 g/dL (2.2-4.2); Glucose 94 mg/dL (74-106); High Density Lipoprotein 66 mg/dL; Potassium 3.6 mmol/L (3.5-5.1); Protein, Total 7.9 g/dL (6.4-8.2); Sodium Level 139 mmol/L (136-145); Triglycerides 141 mg/dL; Very Low Density Lipoprotein 28 mg/dL (5-40)
== END ==
PROVIDERS: PCP Family Medicine; Referring Provider Family Medicine; Visit Provider Family Medicine
DX: Z00.00 Encounter for general adult medical examination without abnormal findings (principal); I10 Essential (primary) hypertension
CPT/HCPCS: 36415; 80053; 80061; 85025

== ENCOUNTER 2023-05-29 14:44 | Emergency (ER) | payer OTHER, SELFPAY ==
[2023-05-29 14:45] VITALS: BP 175/101; PULSE 79; RESP 16; TEMP 36.3; O2SAT 97; BMI 42.0
--- NOTE | 2023-05-29 15:42 | VDLE_ITS ---
Reason For Study: RLE Pain RIGHT LEFT GSV is normal. FV is compressible, spontaneous, phasic, CFV is compressible, spontaneous, phasic, competent and demonstrates normal competent and demonstrates normal augmentation. augmentation. FV is compressible, spontaneous, phasic, competent and demonstrates normal augmentation. POP V is compressible, spontaneous, phasic, competent and demonstrates normal augmentation. T/P Trunk is compressible. PTV is compressible. RT PerV is compressible. A non-vascularized heterogenous area measuring approximately 5.67cm x 1.26cm is noted in the RT pop fossa. Procedure This is a venous duplex using B-mode, color flow and spectral Doppler. Exam performed portable in ED. The exam was diagnostic. A preliminary report was called and/or faxed to ED LETY Onofre. VL/Venous Duplex US, Unilateral Interpretation Summary Deep veins of the right lower extremity are patent and compressible segmentally . There is no evidence of right lower extremity deep vein thrombosis. The right great sapheno us vein appears patent and compressible segmentally. A non-vascularized heterogenous area measuring approximately 5.67cm x 1.26cm is noted in the right popliteal fossa. Ordering Physician: Hermes Preciado Referring Physician: Jabier Gurrola Performed By: Jaswinder Milton RVT
--- NOTE | 2023-05-29 15:46 | EDS_ITS ---
HPI History of Present Illness Chief Complaint: Lower Extremity Injury Informant: patient Narrative Narrative: Patient presents with right calf pain. Patient states that her calf pain started about 4 or 5 days ago not 2 weeks ago. It started in the mid calf. It is moved a little bit up the calf and is now in the proximal lateral calf also. It does not go above the knee. No trauma or increased or change in activity. She does have known knee arthritis but her knees are not really hurting her. She has had pulmonary embolus in the past as well as a DVT in the past. No recent activity or travel that would initiate this. She is not currently on any anticoagulation. She has no chest pain or shortness of breath. The only symptom she has is posterior right calf pain. It is worse with movement or walking or pressing on it. But it is not swollen. No fevers. No change in colors. [facility] Medical History Arthritis Depression Hidradenitis suppurativa HTN (hypertension) Ventral hernia Home Medications bupropion HCl 100 mg tablet 100 mg PO DAILY mood 01/27/16 [History Last Taken 03/15/20] meloxicam 15 mg tablet 15 mg PO DAILY pain 01/27/16 [History Last Taken 03/15/20] sulfamethoxazole 800 mg-trimethoprim 160 mg tablet 800 mg PO DAILY hidrinitis- prevention 01/27/16 [History Last Taken 03/15/20] Fluoxetine 40 mg PO DAILY mood 11/19/18 [History Last Taken 03/15/20] valsartan 320 mg-hydrochlorothiazide 12.5 mg tablet 1 tab PO DAILY bp 03/15/20 [History Last Taken 03/15/20] acetaminophen 325 mg tablet 650 mg (2 x 325 mg) PO Q4H PRN PRN Pain Score 1- 07/0103/20/20 [Rx Last Taken Unknown] docusate sodium 100 mg capsule 100 mg PO BID #30 caps 03/20/20 [Rx Last Taken Unknown] oxycodone-acetaminophen 7.5 mg-325 mg tablet 1 ea PO Q6H PRN Pain 5 days #20 tabs 03/20/20 [Rx Last Taken Unknown] Allergy/AdvReac Type Severity Reaction Status Date / Time GÓMEZ Inhibitors Allergy cough Verified 05/29/23 14:48 Penicillins [PCN] Allergy long time Verified 05/29/23 14:48 ago -rash Surgical History H/O section Hx of cholecystectomy s/p eploratory laparotomy and repair ventral hernia (~03/17/20) Status post gastroplasty Social History Smoking Status: Light Smoker (<10/day) ROS ROS ED ROS Narrative A complete review of systems was performed and is negative except as documented in the history of present illness. Some specific details below. Constitutional: No recent fevers or chills. No malaise. No recent illness ENT: No difficulty swallowing. No swelling. No pain. No reflux symptoms. CV: No chest pain, palpitations, lightheadedness syncope or presyncope Respiratory: No cough or dyspnea. No pain with a deep breath. GI: No abdominal pain. No nausea vomiting diarrhea. No blood in stool. : No frequency dysuria or hematuria. Musculoskeletal: No recent trauma. See history of present illness. Skin: No rash. Nondiaphoretic. Neuro: No weakness or numbness. Endocrine: No polyuria or polydipsia. EXAM Physical Exam Narrative Exam Narrative: CONSTITUTIONAL: Patient is nontoxic in appearance. The patient looks comfortable. Work of breathing looks normal. HEENT: No notable trauma. Mucous membranes moist. EYES: No conjunctival injection. NECK:No JVD. No stridor. CARDIOVASCULAR: Regular rate. Regular rhythm. No notable murmur. No JVD. RESPIRATORY: No respiratory distress. Breathing is unlabored. No wheezes. No pain with a deep breath. No chest wall tenderness. GASTROINTESTINAL: Not distended. No tenderness. MUSCULOSKELETAL: Atraumatic. No peripheral edema. No cord. No tenderness along the deep venous system. No asymmetry. She does have posterior calf tenderness but it is more diffuse. I do not feel a Hillman's cyst either. I do not feel an actual cord. There is no tenderness specifically along the deep venous system but there is diffuse tenderness. There is no tenderness or cord more proximally above the knee. There are no distended veins. Distal pulses are normal and equal right and left. Sensation is intact. There are no skin changes or indication of cellulitis. The knee has no effusion and no pain with motion. NEUROLOGICAL: Patient is alert and appropriate. No focal deficit noted. SKIN: No noted rashes. No diaphoresis. PSYCHIATRIC: Patient is calm. Mood is appropriate. Const Vital Signs: 05/29/23 14:45 Temperature 97.4 F L Temperature Source Temporal Pulse Rate 79 Respiratory Rate 16 Blood Pressure 175/101 H Blood Pressure Mean 125 Pulse Ox 97 Oxygen Delivery Method Room Air MDM MDM MDM Narrative Medical decision making narrative: Patient's ultrasound shows no indication of DVT. There was suspicion of possible Hillman's cyst in the area. This is consistent with her history of knee arthritis. I do not think she needs anticoagulation. Follow-up with her private physician and orthopedic surgeon as appropriate. Discharge Plan Triage Chief Complaint: Lower Extremity Injury ED Provider: Hermes Preciado Dx/Rx/DC Orders Clinical Impression: Synovial cyst of popliteal space [Hillman], right knee, Pain of right calf Instructions: ED Hillman's Cyst Prescriptions: No Action meloxicam 15 MG tablet 15 mg PO DAILY sulfamethoxazole-trimethoprim 1 TABLET tablet 800 mg PO DAILY bupropion HCl 100 MG tablet 100 mg PO DAILY Fluoxetine 40 mg PO DAILY valsartan-hydrochlorothiazide 320-12.5 mg tablet 1 tab PO DAILY Patient Comments: TAKE 1 TABLET BY MOUTH EVERY DAY acetaminophen 325 MG tablet 650 mg PO Q4H PRN PRN (Reason: Pain Score 1-10/10) 0RF docusate sodium 100 MG capsule 100 mg PO BID Qty: 30 0RF oxycodone-acetaminophen 1 EACH tablet 1 ea PO Q6H PRN (Reason: Pain) 5 Days Qty: 20 0RF Primary Care Provider: Jabier Gurrola Referrals: Jabier Gurrola MD [Primary Care Provider] - 3-5 Days Disposition Disposition: Home, Self Care
== END 2023-05-29 16:59 | disposition home or self-care (01) ==
PROVIDERS: Emergency Provider Emergency Medicine; PCP Family Medicine; Visit Provider Emergency Medicine
DX: M71.21 Synovial cyst of popliteal space [Baker], right knee (principal); M79.661 Pain in right lower leg; F17.200 Nicotine dependence, unspecified, uncomplicated
CPT/HCPCS: 93971; 99282

== ENCOUNTER → 2024-02-12 | Outpatient (CLI) | payer OTHER, SELFPAY | END | disposition home or self-care (01) | PROVIDERS: PCP Family Medicine; Visit Provider Orthopaedic Surgery | DX: F17.200 Nicotine dependence, unspecified, uncomplicated (principal) | CPT/HCPCS: 36415 ==

== ENCOUNTER 2024-02-27 08:00 | Outpatient (RCR) | payer OTHER, SELFPAY ==
--- NOTE | 2024-02-05 09:59 | HP.PTEVAL ---
Patient's Visit Information Visit Information Visit Information: ANGELA MUÑOZ is a 64 year old F referred to Physical Therapy by Dr. Sandeep Raymundo DO with a diagnosis of Unilateral primary osteoarthritis left knee, M17.12. Date of Evaluation: 02/05/24 Physical Therapist: Alejandro Rosado Visit Plan Frequency: 2x /Week Duration: 6 Weeks Plan: Continue with improving left knee ROM, LE strength, and balance prior to having her left knee replaced in a month. Use manual therapy and modalities as needed for pain control. Subjective Subjective: Pt. is a 64 y.o. female who has been having left knee pain for several of years with no specific injury that she is aware of. Her PLOF includes no history of left knee surgery in the past but has had right knee surgery. She had x-ray which showed osteoarthritis. Pt. is going to have a left total knee replacement in 3-4 weeks. She denies any radicular symptoms. Pt. denies any falls in the last six months. She has difficulty with standing, walking, walking on uneven ground, sitting, ascending/descending stairs, squatting, kneeling, occasionally sleeping, yard work, and work activity. 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 Pt. denies any knee pain currently, at worst 7/10 and describes the pain as sharp, throbbing, and sometimes stabbing. She is taking Meloxicam and occasionally Percocet for pain. Her PMH includes former smoker, right knee arthroscopic surgery, two C-sections, gall bladder removed, and abdominal hernia. Pt. lives alone in a one story home with ramp entrance. Her hobbies include reading, walking her dog, and making candy. Objective Objective: Palpation- No tenderness to palpation Left knee AROM flexion 106 degrees, extension -12 degrees Right knee AROM flexion 120 degrees, extension -10 degrees Left hip strength flexion 4+/5, abduction 5/5, adduction 5/5, extension 4+/5, knee flexion 4+/5, knee extension 5/5, ankle DF 5/5, ankle PF 5/5 Right hip strength flexion 5/5, abduction 5/5, adduction 5/5, extension 4+/5, knee flexion 4+/5, knee extension 4+/5, ankle DF 5/5, ankle PF 5/5 Left tandem stance 26 secs, right 27 secs Left SLS 16 secs, right 25 secs Special tests- Varus [-], Valgus [-], Anterior drawer [-], Posterior drawer [-], Ap's [-] Gait- Pt. ambulates with slight antalgic gait pattern of left lower extremity. Balance/Special Test Scores Lower Extremity Functional Score: 33 Goals Goal 1:: Pt. will be independent with home exercise program. Goal Time Frame: 4-6 Weeks Goal 2:: Pt. will improve left knee AROM flexion > 110 degrees and extension < 10 degrees in order to improve gait mechanics. Goal Time Frame: 4-6 Weeks Goal 3:: Pt. will be able to walk for at least 20 minutes with left knee pain < 3/10. Goal Time Frame: 4-6 Weeks Goal 4:: Pt. will be able to sleep a full night with less than two interruptions due to left knee pain. Goal Time Frame: 4-6 Weeks Goal 5:: Pt. will be able to ascend/descend a flight of stairs with alternating step pattern and unilateral handrail with left knee pain < 3/10. Goal Time Frame: 4-6 Weeks Goal 6:: Pt. will improve LEFS score < 50% disability in order to improve ADL's and IADL's. Goal Time Frame: 4-6 Weeks Rehabilitation Potential Physical Therapy Diagnosis: Decreased left knee ROM, LE weakness, difficulty walking, balance impairment, and pain Rehabilitation Potential: Good Anticipated Interventions Patient/Client Instruction: Educate patient on: Condition, Plan of Care and Benefits of Fitness Program For the Purpose of:: To decrease pain, To increase ROM, To improve ability to perform ADL's, To improve performance and independence with ADL's and To improve tolerance to ADL's Therapeutic Exercise to Include: Strength training, Balance training, Flexibilty training, Gait and locomotor training and Active ROM Comment: Focus on improving left knee ROM, LE strengthening, and balance exercises. For the Purpose of:: To decrease pain, To increase ROM, To improve ability to perform ADL's, To increase tolerance to activity/condition/position, To improve performance and independence with ADL's, To improve gait and locomotor functions, To assume or resume ADL's and To improve tolerance to ADL's Functional Training to Include: ADL Training and Gait training For the Purpose of:: To decrease pain, To increase ROM, To improve ability to perform ADL's, To improve performance and independence with ADL's, To improve gait and locomotor functions, To increase flexibility/ROM, To improve balance, To assume or resume ADL's and To improve tolerance to ADL's Manual Therapy Techniques to Include: Mobilization, Passive ROM and Soft tissue mobilization For the Purpose of:: To decrease pain, To decrease swelling/inflammation, To increase ROM, To improve ability to perform ADL's, To improve performance and independence with ADL's, To increase flexibility/ROM, To assume or resume ADL's and To improve tolerance to ADL's Assistive Devices: Cane and Wheeled walker For the Purpose of:: To decrease pain, To improve ability to perform ADL's, To improve balance and To improve tolerance to ADL's Other: Educate on use of rolling walker and cane prior to having her knee replaced Text: Thank you for the opportunity to evaluate your patient. For Medicare and Medicare HMO plans, please review the plan of care and approve it. It will need to be FAXED BACK to us at [phone] for Medicare purposes. For Medicare only, by signing this I certify the plan of care. Please let me know if there are questions or concerns regarding this plan of care. Physician Signature: Date:
--- NOTE | 2024-02-27 08:25 | HP.PTEVAL ---
Patient's Visit Information Visit Information Visit Information: ANGELA MUÑOZ is a 64 year old F referred to Physical Therapy by Dr. Sandeep Raymundo DO with a diagnosis of Unilateral primary osteoarthritis left knee, M17.12. Date of Evaluation: 02/05/24 Physical Therapist: Juanito Toussaint DPT Visit Plan Frequency: 2x /Week Duration: 6 Weeks Plan: DC to HEP, Pt. to have surgery once test come back for smoking cessation. Subjective Subjective: Pt. is a 64 y.o. female who has been having left knee pain for several of years with no specific injury that she is aware of. Her PLOF includes no history of left knee surgery in the past but has had right knee surgery. She had x-ray which showed osteoarthritis. Pt. is going to have a left total knee replacement in 3-4 weeks. She denies any radicular symptoms. Pt. denies any falls in the last six months. She has difficulty with standing, walking, walking on uneven ground, sitting, ascending/descending stairs, squatting, kneeling, occasionally sleeping, yard work, and work activity. 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 Pt. denies any knee pain currently, at worst 7/10 and describes the pain as sharp, throbbing, and sometimes stabbing. She is taking Meloxicam and occasionally Percocet for pain. Her PMH includes former smoker, right knee arthroscopic surgery, two C-sections, gall bladder removed, and abdominal hernia. Pt. lives alone in a one story home with ramp entrance. Her hobbies include reading, walking her dog, and making candy. Pain Left Knee: Pain Intensity (Out of 10): 0 Objective Objective: Palpation- No tenderness to palpation Left knee AROM flexion 106 degrees, extension -12 degrees Right knee AROM flexion 120 degrees, extension -10 degrees Left hip strength flexion 4+/5, abduction 5/5, adduction 5/5, extension 4+/5, knee flexion 4+/5, knee extension 5/5, ankle DF 5/5, ankle PF 5/5 Right hip strength flexion 5/5, abduction 5/5, adduction 5/5, extension 4+/5, knee flexion 4+/5, knee extension 4+/5, ankle DF 5/5, ankle PF 5/5 Left tandem stance 26 secs, right 27 secs Left SLS 16 secs, right 25 secs Special tests- Varus [-], Valgus [-], Anterior drawer [-], Posterior drawer [-], Ap's [-] Gait- Pt. ambulates with slight antalgic gait pattern of left lower extremity. Balance/Special Test Scores Lower Extremity Functional Score: 27 Goals Goal 1:: Pt. will be independent with home exercise program. Goal Time Frame: 4-6 Weeks Goal 2:: Pt. will improve left knee AROM flexion > 110 degrees and extension < 10 degrees in order to improve gait mechanics. Goal Time Frame: 4-6 Weeks Goal 3:: Pt. will be able to walk for at least 20 minutes with left knee pain < 3/10. Goal Time Frame: 4-6 Weeks Goal 4:: Pt. will be able to sleep a full night with less than two interruptions due to left knee pain. Goal Time Frame: 4-6 Weeks Goal 5:: Pt. will be able to ascend/descend a flight of stairs with alternating step pattern and unilateral handrail with left knee pain < 3/10. Goal Time Frame: 4-6 Weeks Goal 6:: Pt. will improve LEFS score < 50% disability in order to improve ADL's and IADL's. Goal Time Frame: 4-6 Weeks Rehabilitation Potential Physical Therapy Diagnosis: Decreased left knee ROM, LE weakness, difficulty walking, balance impairment, and pain Rehabilitation Potential: Good Anticipated Interventions Patient/Client Instruction: Educate patient on: Condition, Plan of Care and Benefits of Fitness Program For the Purpose of:: To decrease pain, To increase ROM, To improve ability to perform ADL's, To improve performance and independence with ADL's and To improve tolerance to ADL's Therapeutic Exercise to Include: Strength training, Balance training, Flexibilty training, Gait and locomotor training and Active ROM Comment: Focus on improving left knee ROM, LE strengthening, and balance exercises. For the Purpose of:: To decrease pain, To increase ROM, To improve ability to perform ADL's, To increase tolerance to activity/condition/position, To improve performance and independence with ADL's, To improve gait and locomotor functions, To assume or resume ADL's and To improve tolerance to ADL's Functional Training to Include: ADL Training and Gait training For the Purpose of:: To decrease pain, To increase ROM, To improve ability to perform ADL's, To improve performance and independence with ADL's, To improve gait and locomotor functions, To increase flexibility/ROM, To improve balance, To assume or resume ADL's and To improve tolerance to ADL's Manual Therapy Techniques to Include: Mobilization, Passive ROM and Soft tissue mobilization For the Purpose of:: To decrease pain, To decrease swelling/inflammation, To increase ROM, To improve ability to perform ADL's, To improve performance and independence with ADL's, To increase flexibility/ROM, To assume or resume ADL's and To improve tolerance to ADL's Assistive Devices: Cane and Wheeled walker For the Purpose of:: To decrease pain, To improve ability to perform ADL's, To improve balance and To improve tolerance to ADL's Other: Educate on use of rolling walker and cane prior to having her knee replaced Text: Thank you for the opportunity to evaluate your patient. For Medicare and Medicare HMO plans, please review the plan of care and approve it. It will need to be FAXED BACK to us at [phone] for Medicare purposes. For Medicare only, by signing this I certify the plan of care. Please let me know if there are questions or concerns regarding this plan of care. Physician Signature: Date:
--- NOTE | 2024-02-27 08:26 | HP.PTDCSUM ---
Discharge Summary D/C summary: It has been my pleasure to treat ANGELA MUÑOZ referred by Dr. Sandeep Raymundo DO, with the diagnosis of Unilateral primary osteoarthritis left knee, M17.12 for a total of 7 visit(s). Discharge Date: 02/27/24 Please see the following information for a summary of their discharge status. Subjective Subjective: Pt. reports overall doing well. She is still waiting on her testing for smoking cessation. Pt. is to call physician and schedule surgery once received. Pt. reports being HEP compliant as well. Pt. reports no pain at rest. 5/10 with activities, worst with stairs with reciprocal pattern. Pain Left Knee: Pain Intensity (Out of 10): 0 Overall Improvement % Improvement: 20 Objective Objective/Function: ROM: L knee 0-8-105deg. Pt. lacking 8deg of extension of L LE. MMT: L knee: ext 28.9#, flexion 24.5#. GAIT: PT. ambulates well, but does have marked valgus on LLE during stance, mild increase in L knee. STAIRS: Pt. is able to complete with 1 HR without LOB, but descends with loading RLE only, unable to load RLE with descending secondary to pain. Ascending without issues. Goals Goal 1:: Pt. will be independent with home exercise program. Goal Progress: Goal Met Goal 2:: Pt. will improve left knee AROM flexion > 110 degrees and extension < 10 degrees in order to improve gait mechanics. Goal Progress: Progressing Goal 3:: Pt. will be able to walk for at least 20 minutes with left knee pain < 3/10. Goal Progress: Progressing Goal 4:: Pt. will be able to sleep a full night with less than two interruptions due to left knee pain. Goal Progress: Progressing Goal 5:: Pt. will be able to ascend/descend a flight of stairs with alternating step pattern and unilateral handrail with left knee pain < 3/10. Goal Progress: Progressing Goal 6:: Pt. will improve LEFS score < 50% disability in order to improve ADL's and IADL's. Goal Progress: Progressing Plan Plan: DC to HEP, Pt. to have surgery once test come back for smoking cessation. D/C Information d/c sentence: If there are questions or concerns regarding this patient's physical therapy, please feel free to call me at [phone]. Thank you for the referral of this patient. Sincerely, Juanito Toussaint, DPT Balance/Gait/Functional tests Balance/Special Test Scores Lower Extremity Functional Score: 27 Improvement % Improvement: 20
== END 2024-02-27 19:00 | disposition home or self-care (01) ==
LOC: PT 08:00
PROVIDERS: PCP Family Medicine; Referring Provider Orthopaedic Surgery; Visit Provider Orthopaedic Surgery
DX: M17.12 Unilateral primary osteoarthritis, left knee (principal)
CPT/HCPCS: 97110; 97162; 97530

== ENCOUNTER 2024-06-04 12:30 | Outpatient (RCR) | payer OTHER, SELFPAY | END 2024-06-04 19:00 | disposition home or self-care (01) | LOC: PT 12:30 | PROVIDERS: PCP Family Medicine | DX: M17.12 Unilateral primary osteoarthritis, left knee (principal) | CPT/HCPCS: 97016; 97110; 97140; 97161; 97530 ==

== ENCOUNTER 2024-11-15 10:30 | Outpatient (RCR) | payer MEDICARE, SELFPAY ==
--- NOTE | 2024-10-11 14:55 | HP.PTEVAL ---
Patient's Visit Information Visit Information Visit Information: ANGELA MUÑOZ is a 64 year old F referred to Physical Therapy by Vasiliy Villalta MD with a diagnosis of L VAZQUEZ. Date of Evaluation: 10/11/24 Physical Therapist: Semaj Albarran, PT, ATC Visit Plan Frequency: 1x/Week Duration: 2 Weeks Plan: Issue and instruct pt on a HEP of L LE strengthening and core stab ex's Subjective Subjective: DOS: 09/24/24. Pt reports she had a L VAZQUEZ performed at that time. Pt reports she had L hip pain for a few months prior to having this surgery. Pt reports she was working at that time and began to experience severe groin pain. Pt reports she waited til she retired, and then saw an orthopedic surgeon who said she needed a L VAZQUEZ. Pt had a posterior approach performed. Pt notes she has been compliant with HEP that she was issued post surgery. Pt reports she is still limited by pain, but feels like she is improving every day. Pt reports she has stairs that lead to her basement that she has to negotiate one step at a time. Pt denies tingling or numbness at this time in L LE. Pt reports she is still not able to sleep in her bed at this time secondary to pain. Pt reports her L hip pain is 1/10 while sitting at rest, 8/10 at worst (when she first stands up and attempts to ambulate) Pain L hip: Pain Intensity (Out of 10): 1 Pain Intensity Range: 8 Objective Objective: Neuro: B LE sensation is WNL to light touch. B patellar reflex= 1/3 TU seconds ROM: R hip flex= 80, ext= 0 degrees; L hip flex= 65, ext= 0 degrees MMT: R hip flex= 27, ext= 33 #F; L hip flex= 12, ext= 16 #F Balance/Special Test Scores WOMAC Total Score: 58 WOMAC Percentatge: 39.5900 Goals Goal 1:: Pt will be I with HEP Goal Time Frame: 1 Week Rehabilitation Potential Physical Therapy Diagnosis: Pt has L hip pain, weakness, and limited ROM secondary to a L VAZQUEZ Rehabilitation Potential: Good Anticipated Interventions Patient/Client Instruction: Educate patient on: Condition and Plan of Care For the Purpose of:: To improve self management Therapeutic Exercise to Include: Strength training, Endurance training, Balance training, Gait and locomotor training and Dynamic Lumbar Stabilization For the Purpose of:: To decrease pain, To improve muscle performance and motor function and To increase tolerance to activity/condition/position Text: Thank you for the opportunity to evaluate your patient. For Medicare and Medicare HMO plans, please review the plan of care and approve it. It will need to be FAXED BACK to us at [phone] for Medicare purposes. For Medicare only, by signing this I certify the plan of care. Please let me know if there are questions or concerns regarding this plan of care. Physician Signature: Date:
== END 2024-11-15 19:00 | disposition home or self-care (01) ==
LOC: PT 10:30
PROVIDERS: PCP Family Medicine; Referring Provider Orthopaedic Surgery; Visit Provider Orthopaedic Surgery
DX: M16.12 Unilateral primary osteoarthritis, left hip (principal); Z96.642 Presence of left artificial hip joint
CPT/HCPCS: 97110; 97161; 97530